=== PATIENT | female | born 1955 | race Caucasian/White ===

== ENCOUNTER 2020-01-10 14:43 | Inpatient (IN) | payer OTHER, SELFPAY ==
--- NOTE | ~2020-01-10 | US_ITS ---
EXAMINATION: US right upper quadrant DATE: 01/10/2020 18:34 INDICATION: Right upper quadrant pain TECHNIQUE: Multiple grayscale and Doppler ultrasound images of the abdomen were obtained. COMPARISON: CT from today FINDINGS: Bowel gas obscures visualization of the pancreas. The visualized portions of the pancreas a re unremarkable. The liver is normal with normal echogenicity and echotexture. No surface nodularity. Normal hepatopetal flow in the main portal vein. The gallbladder is normal in size with no stones id entified. There is trace pericholecystic fluid. Gallbladder wall thickness is upper limits of normal. The normal common bile duct measures 5 mm. There was no sonographic Garcia sign. IMPRESSION: 1. Trace pericholecystic fluid without additional findings of acute cholecystitis. If there is high c linical suspicion for cholecystitis, nuclear hepatobiliary scan is recommended. Reviewed, dictated and finalized at location A. IMPRESSION: 1. Trace pericholecystic fluid without additional findings of acute cholecystit is. If there is high clinical suspicion for cholecystitis, nuclear hepatobiliar y scan is recommended.
--- NOTE | ~2020-01-10 | XR_ITS ---
EXAMINATION: XR chest port-a-cath/central DATE: 01/16/2020 12:50 INDICATION: Tunneled dialysis catheter placement TECHNIQUE: frontal and lateral views of the chest were obtained. COMPARISON: Chest radiograph dated 01/10/2020 FINDINGS: Interval placement of a large-bore dual-lumen tunneled right internal jugular central venous dialysis catheter with distal tip at the high right atrium. Pulmonary vascular congestion. No focal airspace opacities, lucas pulmonary edema, pleural effusion or pneumothorax. Cardiomediastinal silhouette is n ormal with prominent right paracardial fat pad. Retained epicardial pacemaker lead projects over the right heart. Median sternotomy wires and mediastinal surgical clips are seen, likely from prior coron sudhir artery bypass grafting. IMPRESSION: 1. Tip of a right internal jugular central venous catheter at the high right atrium. 2. Pulmonary vascular congestion. No other acute cardiopulmonary disease. Reviewed, dictated and finalized at location A. IMPRESSION: 1. Tip of a right internal jugular central venous catheter at the high right at [facility]. 2. Pulmonary vascular congestion. No other acute cardiopulmonary disease.
--- NOTE | ~2020-01-10 | US_ITS ---
EXAMINATION: US renal BI DATE: 01/12/2020 15:42 INDICATION: Acute on chronic kidney disease TECHNIQUE: Multiple grayscale and Doppler ultrasound images of the kidneys were obtained. COMPARISON: None. FINDINGS: The right kidney measures 8.1 x 4.4 x 4.8 cm. The left kidney measures 8.0 x 4.5 x 4.1 cm. The kidneys demonstrate increased parenchymal echogenicity. There is no hydronephrosis. The bladder i s normal. IMPRESSION: 1. Medical renal disease. Reviewed, dictated and finalized at location A. IMPRESSION: 1. Medical renal disease.
--- NOTE | ~2020-01-10 | NM_ITS ---
EXAMINATION: NM hepatobiliary w pharm DATE: 01/11/2020 14:14 INDICATION: Possible biliary obstruction COMPARISON: None. TECHNIQUE: 5.2 mCi Tc-99m mebrofenin (Choletec) was administered intravenously. Scintigraphic images of the abdomen were obtained for one hour. 1.1 mcg sincalide (Kinevac) was administered by slow intr avenous infusion, and imaging was continued for 30 minutes. Gallbladder ejection fraction was calcula kristan by the technologist. FINDINGS: There is normal clearance of radiotracer from the blood pool. There is homogeneous tracer uptake by t he liver. Activity progresses to the gallbladder and bowel. The gallbladder ejection fraction (GBEF) is 48% (normal 10-90%, but most patient with gallbladder dysfunction have GBEF < 35% which does over lap with the normal range). Incidentally noted is likely lymphatic uptake of extravasated activity al liz the left arm. IMPRESSION: 1. Normal hepatobiliary scan. Reviewed, dictated and finalized at location A.
--- NOTE | ~2020-01-10 | XR_ITS ---
EXAMINATION: XR chest 1V portable EXAM DATE: 01/10/2020 16:15 INDICATION: Weakness, low blood sugar. TECHNIQUE: Portable AP frontal chest x-ray was obtained. Comparison is made to prior examination from 06/06/2019. FINDINGS: Sternotomy wires are present without findings to suggest sternal dehiscence. The cardiomedi astinal silhouette is prominent but magnified on this AP technique. Cardiac silhouette is stable in s ize compared to prior exam. No confluent consolidation, pneumothorax or pleural effusion suspected. T here is aortic arteriosclerosis. The bones are osteopenic. There are bony degenerative changes. IMPRESSION: No acute cardiopulmonary findings. Reviewed, dictated and finalized at location B.
--- NOTE | ~2020-01-10 | XR_ITS ---
EXAMINATION: XR fl guide central line place DATE: 01/16/2020 12:33 INDICATION: Tunneled dialysis catheter insertion TECHNIQUE: 2 fluoroscopic spot images of the chest were obtained during procedure performed by Dr. Martha wellington. Radiologist was not present for the imaging or procedure. The amount of fluoroscopy time used during this procedure was 0.3 minutes. COMPARISON: None. FINDINGS: Large-bore right internal jugular central venous catheter with distal tip at the high right atrium. V isualized portions of the lungs are clear with no pneumothorax. Median sternotomy wires and mediastin al surgical clips are seen, likely from prior coronary artery bypass grafting. IMPRESSION: 1. Fluoroscopy utilized during right internal jugular central venous catheter placement with distal t ip in the high right atrium. Reviewed, dictated and finalized at location A. IMPRESSION: 1. Fluoroscopy utilized during right internal jugular central venous catheter p lacement with distal tip in the high right atrium.
--- NOTE | ~2020-01-10 | CT_ITS ---
EXAMINATION: CT brain wo con EXAM DATE: 01/10/2020 16:34 INDICATION: Fatigue, low blood sugar. Pain. TECHNIQUE: Spiral CT of the head was performed without contrast. Axial, coronal and sagittal images were reviewed. The dose-length product (DLP) for this examination was 605.33 mGy-cm. The exposure w as tailored according to patient size, and iterative reconstruction (ASIR) was used as additional dos e reduction technique. There is no prior study for comparison. FINDINGS: There is no acute intraparenchymal hemorrhage. No evidence of intraparenchymal brain mass lesion. No evidence of acute infarction. Please note that initial head CT has limited sensitivity f or small or acute infarctions. There is mild periventricular and subcortical hypodensity, nonspecific but probably related to small vessel ischemic disease. There is mild prominence of the sulci and v entricles related to cerebral atrophy. Punctate old left basal ganglia lacunar infarction. There is intracranial carotid arteriosclerosis. There are no extra-axial collections. There is no mass effec t or midline shift. The orbits are unremarkable. Soft tissue is unremarkable. Status post left mas toidectomy. IMPRESSION: 1. Punctate old lacunar infarction. 2. Chronic age related findings. Reviewed, dictated and finalized at location B.
--- NOTE | ~2020-01-10 | CT_ITS ---
EXAMINATION: CT abdomen pelvis wo con DATE: 01/10/2020 17:32 INDICATION: Abdominal pain, elevated liver function tests and kidney disease TECHNIQUE: Computed tomography (CT) of the abdomen and pelvis was performed without intravenous contr ast. The dose-length product (DLP) was 257.86 mGy-cm. Automated exposure control and iterative recons truction technique were employed. COMPARISON: 06/07/2019, 10/26/2013 FINDINGS: Minimal dependent atelectasis is present in the lung bases. The heart size is normal. The l iver, spleen, pancreas, and adrenal glands are normal. The gallbladder is mildly distended. The kidne ys are unremarkable. There is no hydronephrosis or hydroureter. There is calcified atherosclerosis of the aorta and many of the other arteries. No pathologically enlarged abdominal or pelvic lymph nodes are identified. There is no free intraperitoneal gas or evidence of bowel obstruction. The appendix is normal. There is a chronic mass of the left uterine body which is unchanged since 2013, most consi stent with an intramural fibroid. IMPRESSION: 1. Mild gallbladder distention. Given elevated liver enzymes, acute cholecystitis is a consideration. Correlate for right upper quadrant tenderness and consider right upper quadrant ultrasound or nuclea r hepatobiliary scan. Reviewed, dictated and finalized at location A. IMPRESSION: 1. Mild gallbladder distention. Given elevated liver enzymes, acute cholecystit is is a consideration. Correlate for right upper quadrant tenderness and consid er right upper quadrant ultrasound or nuclear hepatobiliary scan.
[2020-01-10 15:07] VITALS: BP 91/45; PULSE 70; RESP 16; TEMP 36.4; O2SAT 100
--- NOTE | 2020-01-10 15:45 | PC.NURSE ---
Called lab to add on CMP and CBCD.
[2020-01-10 15:53] LABS: Basophils Percent Auto 0.4 % (0.2-1.2); Eosinophils Absolute Auto 0.1 K/mm3 (0-0.3); Eosinophils Percent Auto 0.6 % (0-4.4); Hematocrit 32.7 % (37.0-47.0); Hemoglobin 10.9 g/dL (12.0-15.0); Immature Granulocyte Absolute 0.08 K/mm3 (0.00-0.031); Immature Granulocyte Percent A 0.9 % (0-0.5); Lymphocytes Absolute Auto 0.95 K/mm3 (0.9-3.2); Lymphocytes Percent Auto 10.5 % (18.3-44.2); Mean Corpuscular HGB Conc 33.3 g/dl (32-36); Mean Corpuscular Hemoglobin 30.1 pg (26-34); Mean Corpuscular Volume 90.3 fl (80-100); Mean Platelet Volume 10.3 fl (7.4-10.4); Monocytes Absolute Auto 1.1 K/mm3 (0.1-0.6); Monocytes Percent Auto 12.4 % (2.6-8.5); Neutrophils Absolute Auto 6.8 K/mm3 (1.3-6.7); Neutrophils Percent Auto 75.2 % (45.5-73.1); Platelet Count Result 172 k/mm3 (150-375); Red Blood Count 3.62 M/mm3 (4.2-5.4); Red Cell Distribution Width 14.3 % (11.5-14.5)
--- NOTE | 2020-01-10 16:15 | PC.NURSE ---
patients family called ems this morning with increased confusion. patient was treated by ems for a low blood sugar and patients then refused transport. later patient decided that patient should be seen to make sure she didnt have a stroke or something . patient is at her normal mental status
[2020-01-10] MEDS: SODIUM CHLORIDE 0.9% IV 500 ML 999 ML IV CONT (16:22)
[2020-01-10 16:41] VITALS: BP 127/56; PULSE 68
[2020-01-10 16:42] VITALS: BP 128/55; PULSE 72
[2020-01-10 16:44] VITALS: BP 101/55; PULSE 78
--- NOTE | 2020-01-10 16:46 | ED.GENADULT ---
HPI - General Adult General Chief complaint: Unspecified Stated complaint: multiple complaints Time Seen by Provider: 01/10/20 15:32 Source: patient, family and old records reviewed Limitations: dementia History of Present Illness HPI narrative: Patient is a 64-year-old female who presents with family for evaluation of concern for weakness this morning EMS was called found to have a glucose of 30 was given glucose had improvement and stayed home and then was brought to emergency department for family for concern for evaluation patient denies any recent illness or other complaints and on arrival is in the room resting patient has no complaints has history of dementia but is alert and oriented to person and place. Patient has been without recent illness. Patient with history of dementia chronic kidney disease saw her oncologist yesterday secondary to chronic anemia. On arrival resting comfortably in the room with no complaints Related Data Home Medications Medication Instructions Recorded Confirmed aspirin 81 mg tablet,delayed 81 mg PO DAILY 06/06/19 01/09/20 release carvedilol 25 mg tablet 25 mg PO Q12H 06/06/19 01/09/20 cholecalciferol (vitamin D3) 25 1,000 unit PO BID cap 06/06/19 01/09/20 mcg (1,000 unit) capsule ezetimibe 10 mg tablet 10 mg PO DAILY 06/06/19 01/09/20 isosorbide mononitrate 30 mg 30 mg PO DAILY 06/06/19 01/09/20 tablet,extended release 24 hr rosuvastatin 40 mg tablet 40 mg PO DAILY 06/06/19 01/09/20 rivaroxaban 2.5 mg tablet 2.5 mg PO BID 08/29/19 01/09/20 Allergies Allergy/AdvReac Type Severity Reaction Status Date / Time No Known Allergies Allergy Unverified 12/27/19 11:13 Review of Systems Review of Systems: Narrative: Patient with unremarkable review of symptoms somewhat limited due to history of dementia All systems reviewed & are unremarkable except as noted in HPI and below PMFSH Past Medical History Medical History Acute on chronic kidney failure Anemia CAD (coronary artery disease) CHF (congestive heart failure) COPD (chronic obstructive pulmonary disease) Dementia Depression Essential (primary) hypertension GERD without esophagitis Heart attack History of blood transfusion Hyperlipidemia Post-menopausal Type 2 diabetes mellitus without complication, without long-term current use of insulin Ulcer UTI (urinary tract infection) Surgical History Surgical History History of breast biopsy History of coronary artery stent placement History of tubal ligation Hx of CABG Social History Social History Social History: Patient wishes to be a Full [employer]. She designates her Kyle Mcgee as her medical decision maker. Her PCP is Dr. Mauricio Smoking packs per day: 0.5 Smoking cigarettes per day: 10.0 Years smoked: 16 Smoking pack-years: 8.00 Smoking status: Current every day smoker Tobacco type: cigarettes Second hand tobacco smoke exposure: Yes Additional smoking assessment comments: used to smoke 1/2 ppd, down to 3-5 cigarretes/day Alcohol intake: never Substance use: never Additional living arrangements comments: Lives with and daughter/son in law Gender identity (if verbalized by the patient): Female Spiritual care concerns: No Agree to blood products: Yes Exam Narrative: Exam Narrative: GENERAL: Well-appearing, well-nourished, and in no acute distress. HEAD: Normocephalic, atraumatic. EYES: PERRLA and EOMI. ENT: Nares clear, no rhinorrhea or epistaxis. Mucous membranes moist. Oropharynx without tonsillar hypertrophy exudate or other lesions. NECK: Supple. No adenopathy or masses. CHEST: Clear to auscultation. No respiratory distress. No wheezes rales or rhonchi HEART: Regular rate and rhythm. No murmur heard. Normal peripheral pulses. ABDOMEN: Sof
[2020-01-10 16:56] LABS: Albumin Level 2.8 g/dL (3.5-5.1); Alkaline Phosphatase 130 U/L (38-126); Bilirubin,Total 0.3 mg/dL (0.2-1.3); Blood Urea Nitrogen 60 mg/dL (7-17); Calcium 7.3 mg/dL (8.4-10.2); Carbon Dioxide 15 mmol/L (22-30); Chloride 108 mmol/L (98-107); Estimated CRCL calculation 5 ml/min; Estimated Glomerular Filt Rate 5; Glucose 134 mg/dL (65-105); Potassium 4.6 mmol/L (3.4-5.0); Sodium 132 mmol/L (137-145)
[2020-01-10 17:09] LABS: Alanine Aminotransferase 1019 U/L (4-35); Aspartate Amino Transferase 963 U/L (14-36)
[2020-01-10 19:30] VITALS: BP 122/68; PULSE 78; RESP 18; O2SAT 99
[2020-01-10 19:33] LABS: Add Urine Microscopic? YES; Appearance Urine Cloudy (Clear); Bacteria Urine Trace /hpf; Bilirubin Urine Negative (Negative); Blood Urine 3+ (Negative); Color Urine Yellow (Yellow); Glucose Urine UA 3+ mg/dL (Negative); Ketones Urine Negative (Negative); Leukocyte Esterase Ur 3+ LEU/UL (Negative); Mucus Urine Rare /lpf; Nitrate Urine Negative (Negative); Protein Urine 2+ mg/dL (Negative); RBC Urine >75 /hpf (0-2); Renal Epithelial Cells Urine Rare /hpf (None Seen); Specific Grav Ur 1.008 (1.001-1.035); Squamous Epithelial Cell Urine Rare /hpf (Few); Urobilinogen Urine Negative mg/dL (<2.0); WBC Clumps Urine Present /HPF; WBC Urine 31-50 /hpf
[2020-01-10 20:35] LABS: Glucose Point of Care 212 (65-105)
--- NOTE | 2020-01-10 21:36 | ADMGEN ---
This patient, Jaki Luis, was admitted to [facility] Surg Room 322-02 per stretcher at 2135. Patient/family oriented to hospital policies and general routines including ID bracelet, bed and alarms, visiting hours, pain management, procedures, bathroom and other care routines, personal items, smoking policy, room service/diet, and visiting hours. Valuables list has been completed. Information on how to activate the Rapid Response Team has been discussed. Patient/Family are encouraged to report perceived risks to care and to ask questions if they do not understand what they are told or what they should do.
[2020-01-10 21:40] VITALS: BP 110/50; PULSE 75; RESP 18; TEMP 36.4; O2SAT 100; BMI 19.5
[2020-01-10] MEDS: LACTATED RINGERS 1,000 ML 75 ML IV CONT (22:00)
[2020-01-10] MEDS: FAMOTIDINE 20 MG/2 ML VIAL IV PUSH (22:23)
[2020-01-10 22:37] LABS: Glucose Point of Care 144 (65-105)
--- NOTE | 2020-01-10 22:44 | PC.NURSE ---
Unable to verify home medication list with patient. Attempted to reach Kyle Luis, spouse, by telephone but was unsuccessful.
--- NOTE | 2020-01-10 22:49 | PC.NURSE ---
Return call received from Kyle Luis, spouse. Home medication list reviewed and verified. List updated in chart.
[2020-01-11 06:00] VITALS: BP 102/45; PULSE 73; RESP 18; TEMP 36.9; O2SAT 98
--- NOTE | 2020-01-11 06:11 | PM.IMHP ---
H&P: HPI History of Present Illness Chief complaint: Low blood sugars, dementia Narrative: Date and time of patient contact: 01/11/2020 at 6:10 a.m. Jaki Luis is a 64 year old female with a past medical history of hypertension, type 2 diabetes mellitus and dementia who presented to the ER hypoglycemia earlier in the day. Source of information is past medical records and ER records. Patient is a poor historian due to her dementia. The patient had had a low glucose for which EMS was called. The patient's refused transport at that time. The patient's repeat glucose had improved after EMS intervention. The patient remained fatigued in the family decided to bring the patient in later in a day. The patient denies any complaints but has a history of dementia. In the ER the patient was found to have acute on chronic kidney injury and and elevated AST ALT and alk-phos. The patient has not been having any nausea or vomiting. She does not have any significant abdominal tenderness on exam. The patient is alert oriented to name, date of and the fact that she is in [facility]. She is not oriented to the month or year. Review of Systems Review of Systems: ROS unobtainable: Yes unobtainable due to medical condition (Limited due to the patient's dementia.) [facility] Past Medical History Medical History (Updated 01/11/20 @ 08:06 by Diana Pittman DO) Anemia Bilateral carotid artery stenosis CAD (coronary artery disease) 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 CHF (congestive heart failure) CKD (chronic kidney disease) stage 4, GFR 15-29 ml/min COPD (chronic obstructive pulmonary disease) PFTs October 2019 demonstrated mild obstructive ventilatory defect and severe small airway disease without significant bronchodilator effect Dementia Depression Essential (primary) hypertension GERD without esophagitis Heart attack History of blood transfusion Hyperlipidemia Post-menopausal Type 2 diabetes mellitus without complication, without long-term current use of insulin Ulcer UTI (urinary tract infection) Surgical History Surgical History (Updated 01/11/20 @ 08:06 by Diana Pittman DO) History of breast biopsy History of cardiac catheterization September 2013 demonstrating moderate left ventricular enlargement with severe left ventricular hypokinesis ejection fraction of 30% with severe multivessel coronary artery disease in the left main LAD and RCA with total occlusion of the left subclavian History of coronary artery stent placement History of tubal ligation Hx of CABG September 2013 Family History Family History (Updated 01/11/20 @ 06:15 by Diana Pittman DO) Father Diabetes mellitus Heart disease Mother Depression Lung cancer Social History Social History (Updated 01/11/20 @ 06:30 by Diana Pittman DO) Social History: Primary care physician: Dr. Annette Mauricio Code status: full Code. She designates her Kyle Mcgee as her medical decision maker. Smoking packs per day: 0.5 Smoking cigarettes per day: 10.0 Years smoked: 40 Smoking pack-years: 20.00 Smoking status: Current every day smoker Tobacco type: cigarettes Second hand tobacco smoke exposure: Yes Additional smoking assessment comments: used to smoke 1/2 ppd, down to 3-5 cigarretes/day Alcohol intake: never Substance use: never Additional living arrangements comments: Lives with and daughter/son in law. Occupation/Education: retired Additional occupation/education comments: She used to work as a director [employer]. Gender identity (if verbalized by the patient): Female Spiritual care concerns: No Agree to blood products: Yes Meds Home Medications and Allergies Home Medications Medication Instructions Recorded Confirmed Type aspirin 81 mg tablet,delayed 81 mg PO DAILY 06/06/19 01/10/20 History release carvedilol 25 mg tablet 25 mg PO Q12H 06/06/1912/17
[2020-01-11 06:58] LABS: Basophils Percent Auto 0.5 % (0.2-1.2); Eosinophils Absolute Auto 0.1 K/mm3 (0-0.3); Eosinophils Percent Auto 0.8 % (0-4.4); Hematocrit 28.7 % (37.0-47.0); Hemoglobin 9.6 g/dL (12.0-15.0); Immature Granulocyte Absolute 0.09 K/mm3 (0.00-0.031); Immature Granulocyte Percent A 1.2 % (0-0.5); Lymphocytes Absolute Auto 0.78 K/mm3 (0.9-3.2); Lymphocytes Percent Auto 10.3 % (18.3-44.2); Mean Corpuscular HGB Conc 33.4 g/dl (32-36); Mean Corpuscular Hemoglobin 30.1 pg (26-34); Mean Platelet Volume 10.2 fl (7.4-10.4); Monocytes Absolute Auto 0.8 K/mm3 (0.1-0.6); Monocytes Percent Auto 10.2 % (2.6-8.5); Neutrophils Absolute Auto 5.8 K/mm3 (1.3-6.7); Platelet Count Result 143 k/mm3 (150-375); Red Blood Count 3.19 M/mm3 (4.2-5.4); Red Cell Distribution Width 14.4 % (11.5-14.5); White Blood Count 7.5 K/mm3 (4.5-10.0)
[2020-01-11 07:04] LABS: Albumin Level 2.5 g/dL (3.5-5.1); Alkaline Phosphatase 137 U/L (38-126); Bilirubin,Total 0.3 mg/dL (0.2-1.3); Blood Urea Nitrogen 59 mg/dL (7-17); Calcium 7.5 mg/dL (8.4-10.2); Carbon Dioxide 13 mmol/L (22-30); Chloride 112 mmol/L (98-107); Estimated CRCL calculation 6 ml/min; Estimated Glomerular Filt Rate 5; Glucose 31 mg/dL (65-105); Lipase 566 U/L (23-300); Potassium 4.6 mmol/L (3.4-5.0); Sodium 135 mmol/L (137-145)
[2020-01-11] MEDS: DEXTROSE 50% 25 GM/50 ML SYRINGE IV PUSH ×2 (07:05→14:18)
[2020-01-11 07:07] LABS: Alanine Aminotransferase 1353 U/L (4-35)
[2020-01-11 07:32] LABS: Glucose Point of Care 134 (65-105)
[2020-01-11 08:01] LABS: Aspartate Amino Transferase 1484 U/L (14-36)
[2020-01-11] MEDS: DEXTROSE 5% 1,000 ML 1,000 ML 100 ML IVPB ×2 (09:45→21:59)
[2020-01-11] MEDS: FAMOTIDINE 20 MG/2 ML VIAL IV PUSH ×2 (09:46→21:56)
[2020-01-11] MEDS: PANTOPRAZOLE SODIUM IV 40 MG VIAL IV PUSH (09:46)
[2020-01-11 09:47] VITALS: PULSE 73
[2020-01-11 10:00] LABS: Glucose Point of Care 60 (65-105)
--- NOTE | 2020-01-11 12:43 | PM.CNGS ---
Assessment and Plan Assessment and plan (1) Elevated transaminase level: Code(s): R74.0 - Nonspecific elevation of levels of transaminase and lactic acid dehydrogenase [LDH] Status: Acute Assessment and Plan: unclear etiology, no stones on imaging, likely intrinsic hepatic pathology, will get GI referral for further workup (2) Acute acalculous cholecystitis: Code(s): K81.0 - Acute cholecystitis Status: Acute Assessment and Plan: exam benign, cont serial exams for now, ok to have low fat diet (3) Diabetes mellitus with hypoglycemia: Code(s): E11.649 - Type 2 diabetes mellitus with hypoglycemia without coma Status: Acute Assessment and Plan: cont mgmt per primary team (4) Chronic systolic congestive heart failure, NYHA class 2: Code(s): I50.22 - Chronic systolic (congestive) heart failure Status: Acute Assessment and Plan: cont mgmt per primary team (5) Essential (primary) hypertension: Code(s): I10 - Essential (primary) hypertension Status: Acute Assessment and Plan: cont mgmt per primary team History of Present Illness Consult details Consult date: 01/11/20 Reason for consult: other (elevated LFTs, pericholecystic fluid) Requesting physician: Diana Pittman DO Narrative: Pt is a 64 y/o F c multiple med issues presenting to hospital c weakness, hypoglycemia. Pt incidentally found to have elevated transaminases, subsequent imaging suggestive of poss cholecystitis. Pt denies any abd pain or N/V. Of note, pt c dementia and is poor historian so history largely obtained via chart. Review of Systems Review of Systems: ROS unobtainable: Yes unobtainable due to medical condition [facility] Past Medical History Medical History Anemia Bilateral carotid artery stenosis CAD (coronary artery disease) 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 CHF (congestive heart failure) CKD (chronic kidney disease) stage 4, GFR 15-29 ml/min COPD (chronic obstructive pulmonary disease) PFTs October 2019 demonstrated mild obstructive ventilatory defect and severe small airway disease without significant bronchodilator effect Dementia Depression Essential (primary) hypertension GERD without esophagitis Heart attack History of blood transfusion Hyperlipidemia Post-menopausal Type 2 diabetes mellitus without complication, without long-term current use of insulin Ulcer UTI (urinary tract infection) Surgical History Surgical History History of breast biopsy History of cardiac catheterization September 2013 demonstrating moderate left ventricular enlargement with severe left ventricular hypokinesis ejection fraction of 30% with severe multivessel coronary artery disease in the left main LAD and RCA with total occlusion of the left subclavian History of coronary artery stent placement History of tubal ligation Hx of CABG September 2013 Family History Family History Father Diabetes mellitus Heart disease Mother Depression Lung cancer Social History Social History Social History: Primary care physician: Dr. Annette Mauricio Code status: full Code. She designates her Kyle Mcgee as her medical decision maker. Smoking packs per day: 0.5 Smoking cigarettes per day: 10.0 Years smoked: 40 Smoking pack-years: 20.00 Smoking status: Current every day smoker Tobacco type: cigarettes Second hand tobacco smoke exposure: Yes Additional smoking assessment comments: used to smoke 1/2 ppd, down to 3-5 cigarretes/day Alcohol intake: never Substance use: never Additional living arrangements comments: Lives with and daughter/son in law. Occupation/Education: retired Additional occupation/education comments: Sh
--- NOTE | 2020-01-11 13:04 | PM.IMPN ---
Progress Note: A&P Assessment and Plan (1) Acute acalculous cholecystitis: Code(s): K81.0 - Acute cholecystitis Status: Acute Assessment and Plan: Patient's CT scan showed mildly dilated gallbladder and labs showed elevated LFTs, total bilirubin, and her lipase was elevated as well. Right upper quadrant ultrasound was completed showing Trace pericholecystic fluid without additional findings of acute cholecystitis. If there is high clinical suspicion for cholecystitis, nuclear hepatobiliary scan is recommended. General surgery has been consulted from the emergency department I talked with Dr. Posada about the patient and her right upper quadrant ultrasound findings and he agreed with completed a HIDA scan today and having GI consult on the patient for further evaluation. Patient otherwise appears comfortable at this time. Continue monitoring her symptoms, CMP, lipase an GI and surgical input is greatly appreciated. (2) Acute kidney injury superimposed on chronic kidney disease: Code(s): N17.9 - Acute kidney failure, unspecified; N18.9 - Chronic kidney disease, unspecified Status: Acute Assessment and Plan: Patient's creatinine seems to be stable around 3 or 4. She does follow-up with Dr. Carr as an outpatient Creatinine is stable at 7.7. Nephrology has been consulted on the patient. Will avoid nephrotoxic medications. Continue gentle IV fluid hydration. (3) Abnormal urinalysis: Code(s): R82.90 - Unspecified abnormal findings in urine Status: Acute Assessment and Plan: Patient's urinalysis is abnormal looks like she has a UTI. Patient denies any urinary symptoms. Urine culture has been sent and pending. In the meantime will start IV ceftriaxone for UTI. Continue monitoring patient's symptoms. (4) Elevated levels of transaminase & lactic acid dehydrogenase: Code(s): R74.0 - Nonspecific elevation of levels of transaminase and lactic acid dehydrogenase [LDH] Status: Acute Assessment and Plan: Due to suspected acalculous cholecystitis. Patient LFTs have been elevated even more today Most likely secondary to possible acalculous cholecystitis vs intrinsic hepatic pathology. GI has been consulted and their input is greatly appreciated. Continue monitoring the patient and her CMP daily. (5) Diabetes mellitus with hypoglycemia: Code(s): E11.649 - Type 2 diabetes mellitus with hypoglycemia without coma Status: Acute Assessment and Plan: Patient has had multiple episodes of hypoglycemia this morning her glucose was in the 30s. She was started on dextrose IV and will continue monitoring her glucose while she is NPO. Continue monitoring her glucose levels, Q6hr while NPO and ACHS when she begins eating. Hypoglycemic protocol in place. (6) Essential (primary) hypertension: Code(s): I10 - Essential (primary) hypertension Status: Acute Assessment and Plan: Blood pressure has been low normal this morning, 102/45. Will hold her blood pressure meds at this time and restart them when she is more stable and eating and drinking like normal. (7) Dementia, unspecified, without behavioral disturbance: Qualifiers: Dementia type: unspecified type Qualified Code(s): F03.90 - Unspecified dementia without behavioral disturbance Code(s): F03.90 - Unspecified dementia without behavioral disturbance Status: Acute Assessment and Plan: She is on any medications for this but she is A&O x3. Will continue monitoring. (8) Anemia: Qualifiers: Anemia type: due to chronic kidney
--- NOTE | 2020-01-11 13:28 | WPDGICN ---
Assessment and Plan Assessment and plan (1) Elevated transaminase level: Code(s): R74.0 - Nonspecific elevation of levels of transaminase and lactic acid dehydrogenase [LDH] Status: Acute Assessment and Plan: Patient has marked elevation of LFTs. Most suspicious for ischemic ?shock liver. Suspicious the patient may have had low blood pressure prompting elevation of LFTs. She is currently pain-free. And this degree of elevation is suspicious. Plan is to check hepatitis serologies for other potential causes of elevated LFTs. This appears to be unlikely related to gallbladder disease. Gallbladder ultrasound reviewed and CT scan are nonspecific. HIDA scan will be obtained regardless. (2) Diabetes mellitus with hypoglycemia: Code(s): E11.649 - Type 2 diabetes mellitus with hypoglycemia without coma Status: Acute (3) Dementia, unspecified, without behavioral disturbance: Qualifiers: Dementia type: unspecified type Qualified Code(s): F03.90 - Unspecified dementia without behavioral disturbance Code(s): F03.90 - Unspecified dementia without behavioral disturbance Status: Acute Assessment and Plan: Patient has dementia which makes it hard to give a history. Physical exam remains pain-free at this time. (4) CKD (chronic kidney disease) stage 4, GFR 15-29 ml/min: Code(s): N18.4 - Chronic kidney disease, stage 4 (severe) Status: Acute Assessment and Plan: Patient has significant underlying chronic kidney disease. It is uncertain but she may have a acute worsening of her chronic kidney disease and nephrology follow-up strongly encourage. Currently her BUN is 59 and creatinine 7.7 P (5) Anemia: Qualifiers: Anemia type: due to chronic kidney disease Qualified Code(s): N18.4 - Chronic kidney disease, stage 4 (severe); D63.1 - Anemia in chronic kidney disease Code(s): D64.9 - Anemia, unspecified Status: Acute Assessment and Plan: Patient has anemia of chronic disease. Evaluation of the GI tract was performed on recent admission. GI Consult Note Consult date/time: 01/11/20 13:28 HPI: Jaki Luis is a 64 year old female with a history of dementia history of chronic kidney disease and anemia of chronic disease. Presented to the emergency room because of symptoms of hypoglycemia. Patient was noted to have elevated LFTs and for this reason I have been consulted. Patient has a history of dementia is unable to give any additional history. Laboratory testing emergency room raise the question of gallbladder inflammation. However patient has no abdominal pain. 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 CHF (congestive heart failure) CKD (chronic kidney disease) stage 4, GFR 15-29 ml/min COPD (chronic obstructive pulmonary disease) PFTs October 2019 demonstrated mild obstructive ventilatory defect and severe small airway disease without significant bronchodilator effect Dementia Depression Essential (primary) hypertension GERD without esophagitis Heart attack History of blood transfusion Hyperlipidemia Post-menopausal Type 2 diabetes mellitus without complication, without long-term current use of insulin Ulcer UTI (urinary tract infection) Surgical History Surgical History History of breast biopsy History of cardiac catheterization September 2013 demonstrating moderate left ventricular enlargement with severe left ventricular hypokinesis ejection fraction of 30% with severe multivessel coronary artery disease in the left main LAD and RCA with total occlusion of the left subclavian History of coronary artery stent placement History of
[2020-01-11 14:00] VITALS: BP 126/45; PULSE 68; RESP 16; TEMP 36.5; O2SAT 100
[2020-01-11 14:27] LABS: Glucose Point of Care 31 (65-105)
[2020-01-11 15:16] LABS: Albumin Level 2.7 g/dL (3.5-5.1); Blood Urea Nitrogen 60 mg/dL (7-17); Calcium 7.4 mg/dL (8.4-10.2); Carbon Dioxide 15 mmol/L (22-30); Chloride 108 mmol/L (98-107); Estimated CRCL calculation 6 ml/min; Estimated Glomerular Filt Rate 5; Glucose 120 mg/dL (65-105); Phosphorus 4.6 mg/dL (2.5-4.5); Potassium 4.2 mmol/L (3.4-5.0); Sodium 131 mmol/L (137-145)
[2020-01-11 15:23] LABS: Glucose Point of Care 112 (65-105)
[2020-01-11 15:36] LABS: Albumin Level 2.8 g/dL (3.5-5.1); Alkaline Phosphatase 144 U/L (38-126); Bilirubin,Total 0.4 mg/dL (0.2-1.3)
--- NOTE | 2020-01-11 15:39 | PM.CNNEP ---
Assessment and Plan Assessment and plan (1) Acute kidney injury: Code(s): N17.9 - Acute kidney failure, unspecified Status: Acute (2) CKD (chronic kidney disease) stage 4, GFR 15-29 ml/min: Code(s): N18.4 - Chronic kidney disease, stage 4 (severe) Status: Acute (3) Elevated LFTs: Code(s): R79.89 - Other specified abnormal findings of blood chemistry Status: Acute (4) Anemia: Qualifiers: Anemia type: due to chronic kidney disease Qualified Code(s): N18.4 - Chronic kidney disease, stage 4 (severe); D63.1 - Anemia in chronic kidney disease Code(s): D64.9 - Anemia, unspecified Status: Acute (5) Essential (primary) hypertension: Code(s): I10 - Essential (primary) hypertension Status: Acute (6) Diabetes: Code(s): E11.9 - Type 2 diabetes mellitus without complications Status: Acute Assessment and Plan: . Additional Plan Jaki has suffered an acute insult on top of her baseline kidney function as evidenced by her admission labs. Her baseline creatinine normally runs around 3.8-3.9 mg/dL and this was the case a couple of months ago when she saw Dr. Carr in clinic. Discussions were done at that time with regard to the likelihood of renal replacement therapy / dialysis in the future and she was referred to dialysis education to ascertain if this is a intervention she was willing to pursue. According to her , they were willing to consider peritoneal dialysis as a treatment option if her kidney function deteriorated to the point of complete failure. Her creatinine on admission is quite a significant decline in her kidney function and more so than I would have expected for simple disease progression. As already mentioned, gastroenterology saw the patient with regard to her elevated liver function tests and there is some concern that she may have suffered shock liver presumably due to relative hypotension. If this is indeed the case, then I would suspect that her kidney function also suffered from her presumed hypotension resulting in the rise in her BUN and creatinine much like her rise in her blood high liver enzymes. Nevertheless, I still cannot deny the possibility that there may be some element of disease progression but the fact that her creatinine went from a 3.8mg/dl to 7.7mg/dl in a span a 2 - 3 months seems to be quite rapid for disease progression alone. Hence, for further evaluation, I will check a renal ultrasound and check urine electrolytes as well as urine eosinophils. I could check a extensive serological workup but she has already had this done on initial evaluation of her kidney disease. It is felt that her baseline kidney disease is due to combination of diabetes, hypertension, and age-related change. I will continue follow the patient with you while she remains hospitalized to make further recommendations her hospital course. Thank you for allowing me to participate in the care of this patient. History of Present Illness Reason for Consult Consult date: 01/11/20 Reason for consult: acute renal failure (on chronic kidney disease) Chief Complaint Chief complaint: Low blood sugars, dementia History of Present Illness Narrative: Almost all the information I have obtained is from review of the electronic medical records and discussion with the nurses involved in the patient's care as getting a complete and concise history from the patient is quite limited due to her dementia. The patient is a 64 year old female with a past medical history as outlined below who presented to the [facility] ER due to hypoglycemia. The patient had had a low glucose for which EMS was called. Repeat glucose teseting had improved after EMS intervened and hence was not taken to the ER at that time. Apparently, however, the patient remained quite fatigued and her family decided to bring the patient to the ER later in the day.
[2020-01-11 17:04] LABS: Alanine Aminotransferase 1333 U/L (4-35); Aspartate Amino Transferase 1271 U/L (14-36)
[2020-01-11 17:05] LABS: Hepatitis B Surface Antigen Negative (Negative)
[2020-01-11 17:10] LABS: HAV RESULT Negative (Negative); Hepatitis B Core IgM Result Negative (Negative)
[2020-01-11 17:22] LABS: Hepatitis C Virus Antibody Negative (Negative)
[2020-01-11] MEDS: CHOLECALCIFEROL 1,000 UNIT TABLET 1000 UNITS PO (18:36)
[2020-01-11 18:43] LABS: Glucose Point of Care 99 (65-105)
[2020-01-11 21:17] VITALS: BP 117/54; PULSE 67; RESP 16; TEMP 36.7; O2SAT 100
[2020-01-11 21:56] VITALS: PULSE 70
[2020-01-11] MEDS: carvediloL 25 MG TABLET PO (21:56)
[2020-01-11 22:04] LABS: Glucose Point of Care 144 (65-105)
--- NOTE | 2020-01-11 23:43 | PC.NURSE ---
PRN D5 IV fluids for hypoglycemia paused at 2230 in order to see if the patient could sustain her blood sugar without them. Blood sugar at 2145 was 144. Will recheck blood sugar at 0000 and will keep close eye on patient.
[2020-01-11 23:50] LABS: Glucose Point of Care 119 (65-105)
[2020-01-12 01:08] LABS: Glucose Point of Care 77 (65-105)
[2020-01-12] MEDS: DEXTROSE 5% 1,000 ML 1,000 ML 100 ML IV CONT (02:20)
[2020-01-12 06:00] VITALS: BP 102/52; PULSE 68; RESP 18; TEMP 36.8; O2SAT 100
[2020-01-12 06:29] LABS: Basophils Percent Auto 0.2 % (0.2-1.2); Eosinophils Absolute Auto 0.1 K/mm3 (0-0.3); Eosinophils Percent Auto 1.4 % (0-4.4); Hematocrit 26.7 % (37.0-47.0); Hemoglobin 9.1 g/dL (12.0-15.0); Immature Granulocyte Absolute 0.07 K/mm3 (0.00-0.031); Immature Granulocyte Percent A 0.7 % (0-0.5); Lymphocytes Absolute Auto 1.08 K/mm3 (0.9-3.2); Lymphocytes Percent Auto 10.9 % (18.3-44.2); Mean Corpuscular HGB Conc 34.1 g/dl (32-36); Mean Corpuscular Hemoglobin 30.2 pg (26-34); Mean Corpuscular Volume 88.7 fl (80-100); Mean Platelet Volume 9.7 fl (7.4-10.4); Monocytes Absolute Auto 0.9 K/mm3 (0.1-0.6); Monocytes Percent Auto 9.4 % (2.6-8.5); Neutrophils Absolute Auto 7.6 K/mm3 (1.3-6.7); Neutrophils Percent Auto 77.4 % (45.5-73.1); Platelet Count Result 137 k/mm3 (150-375); Red Blood Count 3.01 M/mm3 (4.2-5.4); Red Cell Distribution Width 14.1 % (11.5-14.5); White Blood Count 9.9 K/mm3 (4.5-10.0)
[2020-01-12 06:57] LABS: Albumin Level 2.5 g/dL (3.5-5.1); Alkaline Phosphatase 129 U/L (38-126); Aspartate Amino Transferase 618 U/L (14-36); Bilirubin,Total 0.2 mg/dL (0.2-1.3); Blood Urea Nitrogen 60 mg/dL (7-17); Calcium 7.4 mg/dL (8.4-10.2); Carbon Dioxide 13 mmol/L (22-30); Chloride 104 mmol/L (98-107); Estimated CRCL calculation 5 ml/min; Estimated Glomerular Filt Rate 5; Glucose 93 mg/dL (65-105); Lipase 442 U/L (23-300); Magnesium 1.8 mg/dL (1.6-2.3); Phosphorus 4.7 mg/dL (2.5-4.5); Potassium 4.4 mmol/L (3.4-5.0); Sodium 129 mmol/L (137-145)
[2020-01-12 06:58] LABS: Glucose Point of Care 88 (65-105)
[2020-01-12 06:59] LABS: Alanine Aminotransferase 898 U/L (4-35)
--- NOTE | 2020-01-12 08:59 | WPDGIPROGNO ---
Progress Note: A&P Additional Plan Patient alert and comfortable this morning. Not well oriented. Denies any complaints of abdominal pain. Physical exam reveals her to be alert. She is anicteric. Lungs are clear. Heart without murmur. Abdomen bowel sounds are present soft nontender with no organomegaly. Labs reveal hemoglobin 9.1, hematocrit 26, MCV 80 a period BUN 60, creatinine 8.5. Total bilirubin is 0, AST 618 ALT 898, alk-phos 129. Impression 1. Elevated LFTs. This is most consistent with ?shock liver? period likely related to at interval history of hypotension. This is expected to resolve on its own. Continue to monitor LFTs conservatively. 2. Acute renal insufficiency. Currently monitored by Nephrology service. Likely related to episode of hypertension as well. 3. Anemia. This is chronic. Likely related to kidney disease. Recent GI workup was essentially unremarkable. 4. Dementia. Subjective Date/time seen: 01/12/20 08:59 Objective Data Vital Signs Vital Signs: Vital Signs - 24 hr 01/11/20 09:47 01/11/20 14:00 01/11/20 21:17 Temperature 36.5 C 36.7 C Pulse Rate 73 68 67 Respiratory Rate 16 16 Blood Pressure 126/45 L 117/54 L Pulse Oximetry 100 100 01/11/20 21:56 01/12/20 06:00 Temperature 36.8 C Pulse Rate 70 68 Respiratory Rate 18 Blood Pressure 102/52 L Pulse Oximetry 100 Intake/Output Intake/Output: Intake & Output 01/09/20 01/10/20 01/11/20 01/12/20 23:59 23:59 23:59 23:59 Intake Total 500 1963 360 Output Total 450 Balance 500 1513 360 Meds/Results Medications: Active Medications Generic Name Dose Route Start Last Admin Trade Name Freq PRN Reason Stop Dose Admin Amlodipine Besylate 10 mg 01/11/20 09:00 01/11/20 09:47 Norvasc PO Not Given DAILY ANGELIKA Aspirin 81 mg 01/11/20 09:00 01/11/20 09:47 Aspirin Ec PO Not Given DAILY ANGELIKA Carvedilol 25 mg 01/11/20 09:00 01/11/20 21:56 Coreg PO 25 mg Q12HR ANGELIKA Administration Dextrose 12.5 gm 01/10/20 15:28 01/11/20 14:18 Dextrose 50% Syringe IV PUSH 12.5 gm PRN PRN Administration Hypoglycemia Protocol Dextrose 12.5 gm 01/11/20 06:35 Dextrose 50% Syringe IV PUSH PRN PRN Hypoglycemia Protocol Famotidine 20 mg 01/10/20 21:00 01/11/20 21:56 Pepcid Iv IV PUSH 20 mg Q12HR ANGELIKA Administration Glucagon 1 mg 01/10/20 15:28 Glucagon For Inj IM PRN PRN Hypoglycemia Protocol Glucagon 1 mg 01/11/20 06:35 Glucagon For Inj IM PRN PRN Hypoglycemia Protocol Glucose 15 gm 01/10/20 15:28 Glutose 15 PO PRN PRN Hypoglycemia Protocol Glucose 15 gm 01/11/20 06:35 Glutose 15 PO PRN PRN Hypoglycemia Protocol Dextrose 1,000 mls @ 100 mls/hr 01/10/20 15:28 01/12/20 02:20 Dextrose 5% 1,000 Ml IVPB 0 mls/hr PRN PRN Infusion Hypoglycemia Protocol Dextrose 1,000 mls @ 100 mls/hr 01/11/20 06:35 Dextrose 5% 1,000 Ml IVPB PRN PRN Hypoglycemia Protocol Dextrose 1,000 mls @ 100 mls/hr 01/12/20 02:20 01/12/20 02:20 Dextrose 5% 1,000 Ml IV CONT 100 mls/hr .Q10H ANGELIKA Administration Isosorbide Mononitrate 30 mg 01/11/20 09:00 01/11/20 09:47 Imdur PO Not Given DAILY ANGELIKA Ondansetron HCl 4 mg 01/10/20 20:08 Zofran Inj IV PUSH Q4H PRN Nausea Pantoprazole Sodium 40 mg 01/11/20 09:00 01/11/20 09:46 Protonix Iv IV PUSH 40 mg QAM ANGELIKA Administration Vitamin D 1,000 unit 01/11/20 09:00 01/11/20 18:36 Vitamin D PO 1,000 unit BID ANGELIKA Administration Radiology Results: ITS Impressions Chest X-Ray 01/10/20 16:16 IMPRESSION: No acute cardiopulmonary findings. Head CT 01/10/20 16:38 IMPRESSION: 1. Punctate old lacunar infarction. 2. Chronic age related findings. Abdomen/Pelvis CT 01/10/20 17:38 IMPRESSION: 1. Mild gallbladder distention. Giv
[2020-01-12] MEDS: FAMOTIDINE 20 MG/2 ML VIAL IV PUSH ×2 (09:00→19:47)
[2020-01-12] MEDS: ASPIRIN 81 MG ENTERIC TABLET PO (09:11)
[2020-01-12] MEDS: CHOLECALCIFEROL 1,000 UNIT TABLET 1000 UNITS PO ×2 (09:13→17:54)
[2020-01-12] MEDS: PANTOPRAZOLE SODIUM IV 40 MG VIAL IV PUSH (09:13)
[2020-01-12] MEDS: ISOSORBIDE MONONITRATE 30 MG TAB.ER.24H PO (09:13)
--- NOTE | 2020-01-12 09:57 | PM.IMPN ---
Progress Note: A&P Assessment and Plan (1) Elevated LFTs: Code(s): R79.89 - Other specified abnormal findings of blood chemistry Status: Acute Assessment and Plan: Patient came into the hospital due to some fatigue and found her glucose to be low. LFTs were found to be elevated and further evaluation was completed. Patient's CT scan showed mildly dilated gallbladder and labs showed elevated LFTs, total bilirubin, and her lipase was elevated as well. Right upper quadrant ultrasound was completed showing Trace pericholecystic fluid without additional findings of acute cholecystitis. If there is high clinical suspicion for cholecystitis, nuclear hepatobiliary scan is recommended. General surgery has been consulted from the emergency department I talked with Dr. Albino jordan about the patient and he believes the etiology could be secondary to intrinsic hepatic pathology. GI was consulted who feels she has ?shock liver? from hypotension. At this time she is receiving IV fluids to keep her blood pressure stable, and her LFTs are improving. It is expected that her LFTs will resolved with IV fluids and stable blood pressure. Will continue monitoring for the next few days. And continue with conservative management. Continue monitoring her symptoms, CMP, lipase an GI and surgical input is greatly appreciated. (2) Acute kidney injury superimposed on chronic kidney disease: Code(s): N17.9 - Acute kidney failure, unspecified; N18.9 - Chronic kidney disease, unspecified Status: Acute Assessment and Plan: Patient's creatinine seems to be stable around 3 or 4. She does follow-up with Dr. Carr as an outpatient Creatinine increased again overnight to a creatinine of 8.5, BUN 60. Nephrology evaluated the patient yesterday and ordered a renal ultrasound and urine electrolytes as well as eosinophils. Dr. Verdin stated that the patient has already undergone dialysis Education but has never been placed on it officially. Will see if Nephrology would like to start dialysis while she is here due to her worsening renal function. Will avoid nephrotoxic medications. Continue gentle IV fluid hydration. (3) Abnormal urinalysis: Code(s): R82.90 - Unspecified abnormal findings in urine Status: Acute Assessment and Plan: Patient's urinalysis is abnormal looks like she has a UTI. Urine culture has been sent and came back negative for UTI. Antibiotics were discontinued. She denies any urinary symptoms at this time. Continue monitoring patient's symptoms. (4) Diabetes mellitus with hypoglycemia: Code(s): E11.649 - Type 2 diabetes mellitus with hypoglycemia without coma Status: Acute Assessment and Plan: Patient has had multiple episodes of hypoglycemia this morning her glucose was in the 30s. She was started on dextrose IV and will continue monitoring her glucose while she is NPO. She is now on a clear liquid diet and we are continuing to give her IV dextrose. She has not had any more hypoglycemic episodes. Will slowly advance her diet and continue monitoring her glucose. Continue monitoring her glucose levels ACHS.Hypoglycemic protocol in place. (5) Essential (primary) hypertension: Code(s): I10 - Essential (primary) hypertension Status: Acute Assessment and Plan: Blood pressure has been low normal this morning, 102/52. Will hold her blood pressure meds at this time and restart them when she is more stable and eating and drinking like normal. (6) Dementia, unspecified, without behavioral disturbance: Qualifiers: Dementia type: unspecified type Qualified Code(s): F03.90 - Unspecified dementia without behavioral distur
--- NOTE | 2020-01-12 10:26 | PM.PNGS ---
Progress Note: A&P Assessment and Plan (1) Acute acalculous cholecystitis: Code(s): K81.0 - Acute cholecystitis Status: Acute Assessment and Plan: exam benign, HIDA normal, labs normalizing, no acute surgical isses, will sign off, please call c ?s, issues (2) Elevated LFTs: Code(s): R79.89 - Other specified abnormal findings of blood chemistry Status: Acute Assessment and Plan: appreciate GI input and workup, cont current mgmt Subjective Subjective Date/Time Seen: 01/12/20 10:26 pt reports no issues, hiren diet s issue, denies any abd pain, N/V Review of Systems Constitutional: Constitutional: Denies fatigue, Denies lethargy and Denies weakness Cardiovascular: Cardiovascular: Denies chest pain Respiratory: Respiratory: Denies dyspnea Gastrointestinal: Gastrointestinal: Denies abdominal pain, Denies bloating, Denies constipation, Denies heartburn, Denies diarrhea, Denies nausea and Denies vomiting Exam Const: General: no acute distress Resp: Auscultation: clear to auscultation bilaterally Cardio: Rate: regular rate Rhythm: regular rhythm GI: Other: SNTND Objective Data Vital Signs Vital Signs: Vital Signs - 24 hr 01/11/20 14:00 01/11/20 21:17 01/11/20 21:56 Temperature 36.5 C 36.7 C Pulse Rate 68 67 70 Respiratory Rate 16 16 Blood Pressure 126/45 L 117/54 L Pulse Oximetry 100 100 01/12/20 06:00 Temperature 36.8 C Pulse Rate 68 Respiratory Rate 18 Blood Pressure 102/52 L Pulse Oximetry 100 Intake/Output Intake/Output: Intake & Output 01/09/20 01/10/20 01/11/20 01/12/20 23:59 23:59 23:59 23:59 Intake Total 500 1963 980 Output Total 450 Balance 500 1513 980 Meds/Results Medications: Active Medications Generic Name Dose Route Start Last Admin Trade Name Freq PRN Reason Stop Dose Admin Amlodipine Besylate 10 mg 01/11/20 09:00 01/11/20 09:47 Norvasc PO Not Given DAILY ANGELIKA Aspirin 81 mg 01/11/20 09:00 01/12/20 09:11 Aspirin Ec PO 81 mg DAILY ANGELIKA Administration Carvedilol 25 mg 01/11/20 09:00 01/11/20 21:56 Coreg PO 25 mg Q12HR ANGELIKA Administration Dextrose 12.5 gm 01/10/20 15:28 01/11/20 14:18 Dextrose 50% Syringe IV PUSH 12.5 gm PRN PRN Administration Hypoglycemia Protocol Dextrose 12.5 gm 01/11/20 06:35 Dextrose 50% Syringe IV PUSH PRN PRN Hypoglycemia Protocol Famotidine 20 mg 01/10/20 21:00 01/11/20 21:56 Pepcid Iv IV PUSH 20 mg Q12HR ANGELIKA Administration Glucagon 1 mg 01/10/20 15:28 Glucagon For Inj IM PRN PRN Hypoglycemia Protocol Glucagon 1 mg 01/11/20 06:35 Glucagon For Inj IM PRN PRN Hypoglycemia Protocol Glucose 15 gm 01/10/20 15:28 Glutose 15 PO PRN PRN Hypoglycemia Protocol Glucose 15 gm 01/11/20 06:35 Glutose 15 PO PRN PRN Hypoglycemia Protocol Dextrose 1,000 mls @ 100 mls/hr 01/10/20 15:28 01/12/20 02:20 Dextrose 5% 1,000 Ml IVPB 0 mls/hr PRN PRN Infusion Hypoglycemia Protocol Dextrose 1,000 mls @ 100 mls/hr 01/11/20 06:35 Dextrose 5% 1,000 Ml IVPB PRN PRN Hypoglycemia Protocol Dextrose 1,000 mls @ 100 mls/hr 01/12/20 02:20 01/12/20 02:20 Dextrose 5% 1,000 Ml IV CONT 100 mls/hr .Q10H ANGELIKA Administration Isosorbide Mononitrate 30 mg 01/11/20 09:00 01/12/20 09:13 Imdur PO 30 mg DAILY ANGELIKA Administration Ondansetron HCl 4 mg 01/10/20 20:08 Zofran Inj IV PUSH Q4H PRN Nausea Pantoprazole Sodium 40 mg 01/11/20 09:00 01/12/20 09:13 Protonix Iv IV PUSH 40 mg QAM ANGELIKA Administration Vitamin D 1,000 unit 01/11/20 09:00 01/12/20 09:13 Vitamin D PO 1,000 unit BID ANGELIKA Administration Radiology Results: ITS Impressions Chest X-Ray 01/10/20 16:16 IMPRESSION: No acute cardiopulmonary findings. Head CT 01/10/20 16:38 IMPRESSION: 1
[2020-01-12] MEDS: ONDANSETRON INJ 4 MG/2 ML VIAL IV PUSH (13:43)
[2020-01-12 14:00] VITALS: BP 110/54; PULSE 69; RESP 18; TEMP 36.9; O2SAT 100
[2020-01-12 14:15] LABS: Creatinine Urine 25.5 mg/dL; Sodium Urine Random 33 meq/L; Total Protein Urine Random 75 mg/dL
[2020-01-12 16:25] LABS: Glucose Point of Care 226 (65-105)
--- NOTE | 2020-01-12 17:12 | P.PNNP_ITS ---
Progress Note: A&P Assessment and Plan (1) Acute kidney injury: Code(s): N17.9 - Acute kidney failure, unspecified Status: Acute Assessment and Plan: * suspicion falls on possible ATN... * if her elevated LFTs are a response to shock liver due to hypotension, then it is very possible that the hypotension resulted in renal hypoperfusion and subsequent insult * no acute need for renal replacement therapy/dialysis at this time * HOWEVER, I worry that given her advanced CKD at baseline, she may not have fully recover and this insult may have pushed her over to the necessity of renal replacement therapy * urine lytes not consistent with prerenal azotemia * renal ultrasound pending (2) CKD (chronic kidney disease) stage 4, GFR 15-29 ml/min: Code(s): N18.4 - Chronic kidney disease, stage 4 (severe) Status: Acute Assessment and Plan: * baseline creatinine ~ 3.0 - 4.0mg/dl * thought to be secondary to diabetes + hypertension + age based on outpatient evaluation * apparently, family interested in pursuing peritoneal dialysis when dialysis is needed * if she need dialysis during this hospitalization, she would to be have initiated on hemodialysis (with plan for subsequent peritoneal dialysis as an outpatient) (3) Elevated LFTs: Code(s): R79.89 - Other specified abnormal findings of blood chemistry Status: Acute Assessment and Plan: * presumed to be secondary to hypotension episode (shock liver) * Gastroenterology following (4) Anemia: Qualifiers: Anemia type: due to chronic kidney disease Qualified Code(s): N18.4 - Chronic kidney disease, stage 4 (severe); D63.1 - Anemia in chronic kidney disease Code(s): D64.9 - Anemia, unspecified Status: Acute Assessment and Plan: * probably on the basis of CKD and PREET * follow trend of H/H * check iron studies * consider empiric Epogen (5) Essential (primary) hypertension: Code(s): I10 - Essential (primary) hypertension Status: Acute Assessment and Plan: * well controlled -- perhaps too well controlled given #1 and #$3 * hold BP medications with parameters * follow hemodynamics (6) Diabetes: Code(s): E11.9 - Type 2 diabetes mellitus without complications Status: Acute Assessment and Plan: * issues with hypoglycemia * on D5 IVFs at this time Will continue to follow. Subjective Date/time seen: 06/27/20 17:12 Awake and alert but difficulty with orientation; no apparent distress voiced at this time; no events or issues overnight or this AM; making some urine but creatinine worse today. Exam Narrative: Exam Narrative: General: WD/WN female in NAD Heart: normal S1 and S2; no rub Lungs: clear to auscultation Abdomen: soft, nontender, nondistended, positive bowel sounds Extremities: no cyanosis or clubbing; trace edema Skin: warm and dry Objective Data Vital Signs Vital Signs: Vital Signs Temp Pulse Resp BP Pulse Ox 01/12/20 14:00 36.9 C 69 18 110/54 L 100 01/12/20 06:00 36.8 C 68 18 102/52 L 100 01/11/20 21:56 70 01/11/20 21:17 36.7 C 67 16 117/54 L 100 Intake/Output Intake/Output: Intake & Output 01/09/20 01/10/20 01/11/20 01/12/20 23:59 23:59 23:59 23:59 Intake Total 500 1963 1160 Output Total 450 Balance 500 1513 1160
--- NOTE | 2020-01-12 17:12 | PM.PNNEP ---
Progress Note: A&P Assessment and Plan (1) Acute kidney injury: Code(s): N17.9 - Acute kidney failure, unspecified Status: Acute Assessment and Plan: suspicion falls on possible ATN... if her elevated LFTs are a response to shock liver due to hypotension, then it is very possible that the hypotension resulted in renal hypoperfusion and subsequent insult no acute need for renal replacement therapy/dialysis at this time HOWEVER, I worry that given her advanced CKD at baseline, she may not have fully recover and this insult may have pushed her over to the necessity of renal replacement therapy urine lytes not consistent with prerenal azotemia renal ultrasound pending (2) CKD (chronic kidney disease) stage 4, GFR 15-29 ml/min: Code(s): N18.4 - Chronic kidney disease, stage 4 (severe) Status: Acute Assessment and Plan: baseline creatinine ~ 3.0 - 4.0mg/dl thought to be secondary to diabetes + hypertension + age based on outpatient evaluation apparently, family interested in pursuing peritoneal dialysis when dialysis is needed if she need dialysis during this hospitalization, she would to be have initiated on hemodialysis (with plan for subsequent peritoneal dialysis as an outpatient) (3) Elevated LFTs: Code(s): R79.89 - Other specified abnormal findings of blood chemistry Status: Acute Assessment and Plan: presumed to be secondary to hypotension episode (shock liver) Gastroenterology following (4) Anemia: Qualifiers: Anemia type: due to chronic kidney disease Qualified Code(s): N18.4 - Chronic kidney disease, stage 4 (severe); D63.1 - Anemia in chronic kidney disease Code(s): D64.9 - Anemia, unspecified Status: Acute Assessment and Plan: probably on the basis of CKD and PREET follow trend of H/H check iron studies consider empiric Epogen (5) Essential (primary) hypertension: Code(s): I10 - Essential (primary) hypertension Status: Acute Assessment and Plan: well controlled -- perhaps too well controlled given #1 and #$3 hold BP medications with parameters follow hemodynamics (6) Diabetes: Code(s): E11.9 - Type 2 diabetes mellitus without complications Status: Acute Assessment and Plan: issues with hypoglycemia on D5 IVFs at this time Will continue to follow. Subjective Date/time seen: 01/12/20 17:12 Awake and alert but difficulty with orientation; no apparent distress voiced at this time; no events or issues overnight or this AM; making some urine but creatinine worse today. Exam Narrative: Exam Narrative: General: WD/WN female in NAD Heart: normal S1 and S2; no rub Lungs: clear to auscultation Abdomen: soft, nontender, nondistended, positive bowel sounds Extremities: no cyanosis or clubbing; trace edema Skin: warm and dry Objective Data Vital Signs Vital Signs: Vital Signs Temp Pulse Resp BP Pulse Ox 01/12/20 14:00 36.9 C 69 18 110/54 L 100 01/12/20 06:00 36.8 C 68 18 102/52 L 100 01/11/20 21:56 70 01/11/20 21:17 36.7 C 67 16 117/54 L 100 Intake/Output Intake/Output: Intake & Output 01/09/20 01/10/20 01/11/20 01/12/20 23:59 23:59 23:59 23:59 Intake Total 500 1963 1160 Output Total 450 Balance 500 1513 1160 Meds/Results Medications: Active Medications Generic Name Dose Route Start Last Admin Trade Name Freq PRN Reason Stop Dose Admin Amlodipine Besylate 10 mg 01/11/20 09:00 01/11/20 09:47 Norvasc PO Not Given DAILY ANGELIKA Aspirin 81 mg 01/11/20 09:00 01/12/20 09:11 Aspirin Ec PO 81 mg DAILY ANGELIKA Administration Carvedilol 25 mg 01/11/20 09:00 01/11/20 21:56 Coreg PO 25 mg Q12HR ANGELIKA Administration Dextrose 12.5 gm 01/10/20 15:28 01/11/20 14:18 Dextrose 50% Syringe IV PUSH 12.5 gm PRN PRN Administration Hypoglycemia Protocol Dextrose 12.5 gm 01/10
[2020-01-12 17:20] LABS: Glucose Point of Care 247 (65-105)
[2020-01-12 21:53] VITALS: BP 107/61; PULSE 68; RESP 16; TEMP 36.5; O2SAT 100
[2020-01-13 00:40] LABS: Glucose Point of Care 67 (65-105)
[2020-01-13 01:37] LABS: Glucose Point of Care 111 (65-105)
[2020-01-13 05:59] LABS: Glucose Point of Care 83 (65-105)
[2020-01-13 06:00] VITALS: BP 93/51; PULSE 71; RESP 99; TEMP 36.5; O2SAT 99
[2020-01-13 06:24] LABS: Basophils Percent Auto 0.3 % (0.2-1.2); Eosinophils Absolute Auto 0.1 K/mm3 (0-0.3); Eosinophils Percent Auto 1.6 % (0-4.4); Hematocrit 26.3 % (37.0-47.0); Hemoglobin 8.9 g/dL (12.0-15.0); Immature Granulocyte Absolute 0.11 K/mm3 (0.00-0.031); Immature Granulocyte Percent A 1.4 % (0-0.5); Lymphocytes Absolute Auto 0.88 K/mm3 (0.9-3.2); Lymphocytes Percent Auto 11.5 % (18.3-44.2); Mean Corpuscular HGB Conc 33.8 g/dl (32-36); Mean Corpuscular Hemoglobin 29.4 pg (26-34); Mean Corpuscular Volume 86.8 fl (80-100); Mean Platelet Volume 9.8 fl (7.4-10.4); Monocytes Absolute Auto 0.7 K/mm3 (0.1-0.6); Monocytes Percent Auto 8.5 % (2.6-8.5); Neutrophils Absolute Auto 5.9 K/mm3 (1.3-6.7); Neutrophils Percent Auto 76.7 % (45.5-73.1); Platelet Count Result 155 k/mm3 (150-375); Red Blood Count 3.03 M/mm3 (4.2-5.4); Red Cell Distribution Width 14.3 % (11.5-14.5); White Blood Count 7.7 K/mm3 (4.5-10.0)
[2020-01-13 06:27] VITALS: BP 102/58
[2020-01-13 06:40] LABS: Albumin Level 2.5 g/dL (3.5-5.1); Blood Urea Nitrogen 60 mg/dL (7-17); Calcium 7.7 mg/dL (8.4-10.2); Carbon Dioxide 14 mmol/L (22-30); Chloride 102 mmol/L (98-107); Estimated CRCL calculation 5 ml/min; Estimated Glomerular Filt Rate 4; Glucose 83 mg/dL (65-105); Magnesium 1.9 mg/dL (1.6-2.3); Phosphorus 5.7 mg/dL (2.5-4.5); Potassium 4.5 mmol/L (3.4-5.0); Sodium 126 mmol/L (137-145)
[2020-01-13] MEDS: CHOLECALCIFEROL 1,000 UNIT TABLET 1000 UNITS PO ×2 (07:44→17:36)
[2020-01-13] MEDS: ASPIRIN 81 MG ENTERIC TABLET PO (07:44)
[2020-01-13] MEDS: PANTOPRAZOLE SODIUM IV 40 MG VIAL IV PUSH (07:44)
[2020-01-13] MEDS: FAMOTIDINE 20 MG/2 ML VIAL IV PUSH ×2 (07:45→21:49)
--- NOTE | 2020-01-13 07:46 | WPDGIPROGNO ---
Progress Note: A&P Additional Plan Patient alert and comfortable this morning. Not oriented. No abdominal pain or complaints offered. Physical exam reveals lungs to be clear. Heart without murmur. Abdomen bowel sounds are present soft nontender. No organomegaly appreciated. Labs reveal not available from this morning. Transaminases decline significantly yesterday. Impression 1. Elevated LFTs. Appear to be most consistent with resolving ?shock liver? period continue monitor LFTs until resolution. No specific therapy warranted. 2. Dementia. 3. Chronic kidney disease. BUN 60, creatinine 9.1. Renal service following. Four. Anemia of chronic disease. Subjective Date/time seen: 01/13/20 07:46 Objective Data Vital Signs Vital Signs: Vital Signs - 24 hr 01/12/20 14:00 01/12/20 21:53 01/13/20 06:00 Temperature 36.9 C 36.5 C 36.5 C Pulse Rate 69 68 71 Respiratory Rate 18 16 99 H Blood Pressure 110/54 L 107/61 93/51 L Pulse Oximetry 100 100 99 01/13/20 06:27 Temperature Pulse Rate Respiratory Rate Blood Pressure 102/58 L Pulse Oximetry Intake/Output Intake/Output: Intake & Output 01/10/20 01/11/20 01/12/20 01/13/20 23:59 23:59 23:59 23:59 Intake Total 500 1963 1890 480 Output Total 450 900 Balance 500 1513 990 480 Meds/Results Medications: Active Medications Generic Name Dose Route Start Last Admin Trade Name Freq PRN Reason Stop Dose Admin Amlodipine Besylate 10 mg 01/11/20 09:00 01/11/20 09:47 Norvasc PO Not Given DAILY ANGELIKA Aspirin 81 mg 01/11/20 09:00 01/12/20 09:11 Aspirin Ec PO 81 mg DAILY ANGELIKA Administration Carvedilol 25 mg 01/11/20 09:00 01/11/20 21:56 Coreg PO 25 mg Q12HR ANGELIKA Administration Dextrose 12.5 gm 01/10/20 15:28 01/11/20 14:18 Dextrose 50% Syringe IV PUSH 12.5 gm PRN PRN Administration Hypoglycemia Protocol Dextrose 12.5 gm 01/11/20 06:35 Dextrose 50% Syringe IV PUSH PRN PRN Hypoglycemia Protocol Famotidine 20 mg 01/10/20 21:00 01/12/20 19:47 Pepcid Iv IV PUSH 20 mg Q12HR ANGELIKA Administration Glucagon 1 mg 01/10/20 15:28 Glucagon For Inj IM PRN PRN Hypoglycemia Protocol Glucagon 1 mg 01/11/20 06:35 Glucagon For Inj IM PRN PRN Hypoglycemia Protocol Glucose 15 gm 01/10/20 15:28 Glutose 15 PO PRN PRN Hypoglycemia Protocol Glucose 15 gm 01/11/20 06:35 Glutose 15 PO PRN PRN Hypoglycemia Protocol Dextrose/Sodium Chloride 1,000 mls @ 100 mls/hr 01/13/20 07:30 Dextrose 5% Sodium Chloride 0.9% IV CONT .Q10H ANGELIKA Isosorbide Mononitrate 30 mg 01/11/20 09:00 01/12/20 09:13 Imdur PO 30 mg DAILY ANGELIKA Administration Ondansetron HCl 4 mg 01/10/20 20:08 01/12/20 13:43 Zofran Inj IV PUSH 4 mg Q4H PRN Administration Nausea Pantoprazole Sodium 40 mg 01/11/20 09:00 01/12/20 09:13 Protonix Iv IV PUSH 40 mg QAM ANGELIKA Administration Vitamin D 1,000 unit 01/11/20 09:00 01/12/20 17:54 Vitamin D PO 1,000 unit BID ANGELIKA Administration Radiology Results: ITS Impressions Chest X-Ray 01/10/20 16:16 IMPRESSION: No acute cardiopulmonary findings. Head CT 01/10/20 16:38 IMPRESSION: 1. Punctate old lacunar infarction. 2. Chronic age related findings. Abdomen/Pelvis CT 01/10/20 17:38 IMPRESSION: 1. Mild gallbladder distention. Given elevated liver enzymes, acute cholecystitis is a consideration. Correlate for right upper quadrant tenderness and consider right upper quadrant ultrasound or nuclear hepatobiliary scan. Upper Quadrant Ultrasound 01/10/20 18:48 IMPRESSION: 1. Trace pericholecystic fluid without additional findings of acute cholecystitis. If there is high clinical suspicion for cholecystitis, nuclear hepatobiliary scan is recommended. Hepatobiliary Scan Nuclear Medicine 01/11/20 14:25 IMPRESSION
[2020-01-13 08:13] LABS: Alanine Aminotransferase 705 U/L (4-35); Albumin Level 2.8 g/dL (3.5-5.1); Alkaline Phosphatase 136 U/L (38-126); Aspartate Amino Transferase 298 U/L (14-36); Bilirubin,Total 0.2 mg/dL (0.2-1.3)
[2020-01-13 08:18] LABS: Transferrin 205 mg/dL (206-381)
[2020-01-13 08:24] LABS: Iron 24 ug/dL (37-170)
[2020-01-13 08:34] LABS: Percent Iron Saturation 8 % (20-50)
[2020-01-13 09:21] LABS: Folic Acid > 20.0 ng/mL (2.76->20); Vitamin B12 > 1000.0 pg/mL (239-931)
[2020-01-13] MEDS: SODIUM CHLORIDE 0.9% IV 1,000 ML 30 ML IV CONT (09:45)
--- NOTE | 2020-01-13 09:54 | P.PNNP_ITS ---
Progress Note: A&P Assessment and Plan (1) Acute kidney injury: Code(s): N17.9 - Acute kidney failure, unspecified Status: Acute Assessment and Plan: * suspicion falls on possible ATN... * if her elevated LFTs are a response to shock liver due to hypotension, then it is very possible that this hypotension episode resulted in renal hypoperfusion and subsequent insult * no acute need for renal replacement therapy/dialysis at this time * HOWEVER, I worry that given her advanced CKD at baseline, she may not have fully recover and this insult may have pushed her over to the necessity of renal replacement therapy * urine lytes not consistent with prerenal azotemia * renal ultrasound c/w medical renal disease * follow repeat labs and UOP (2) CKD (chronic kidney disease) stage 4, GFR 15-29 ml/min: Code(s): N18.4 - Chronic kidney disease, stage 4 (severe) Status: Acute Assessment and Plan: * baseline creatinine ~ 3.0 - 4.0mg/dl * thought to be secondary to diabetes + hypertension + age based on outpatient evaluation * apparently, family interested in pursuing peritoneal dialysis when dialysis is needed * if she need dialysis during this hospitalization, she would to be have initiated on hemodialysis (with plan for subsequent peritoneal dialysis as an outpatient) - I will try to discuss with her (3) Elevated LFTs: Code(s): R79.89 - Other specified abnormal findings of blood chemistry Status: Acute Assessment and Plan: * presumed to be secondary to hypotension episode (shock liver) * Gastroenterology following (4) Anemia: Qualifiers: Anemia type: due to chronic kidney disease Qualified Code(s): N18.4 - Chronic kidney disease, stage 4 (severe); D63.1 - Anemia in chronic kidney disease Code(s): D64.9 - Anemia, unspecified Status: Acute Assessment and Plan: * probably on the basis of CKD and PREET * follow trend of H/H * evidence of iron deficiency by anemia labs - will start IV venofer * start Epogen tomorrow (5) Essential (primary) hypertension: Code(s): I10 - Essential (primary) hypertension Status: Acute Assessment and Plan: * well controlled -- perhaps too well controlled given #1 and #3 * hold BP medications with parameters * follow hemodynamics (6) Diabetes: Code(s): E11.9 - Type 2 diabetes mellitus without complications Status: Acute Assessment and Plan: * issues with hypoglycemia * on D5 IVFs at this time Will continue to follow. Subjective Date/time seen: 01/13/20 09:54 Remains pleasantly confused with no acute complaints or concerns mentioned; trend of renal function/creatinine noted; however, still making urine and eating/drinking reasonably well. Exam Narrative: Exam Narrative: General: WD/WN female in NAD Heart: normal S1 and S2; no rub Lungs: clear to auscultation Abdomen: soft, nontender, nondistended, positive bowel sounds Extremities: no cyanosis or clubbing; trace edema Skin: warm and intact Objective Data Vital Signs Vital Signs: Vital Signs Temp Pulse Resp BP Pulse Ox 01/13/20 06:27 102/58 L 01/13/20 06:00 36.5 C 71 99 H 93/51 L 99 01/12/20 21:53 36.5 C 68 16 107/61 100 01/12/20 14:00 36.9 C 69 18 110/54 L 100 Intake/Output Intake/Output: Intake & Output
--- NOTE | 2020-01-13 09:54 | PM.PNNEP ---
Progress Note: A&P Assessment and Plan (1) Acute kidney injury: Code(s): N17.9 - Acute kidney failure, unspecified Status: Acute Assessment and Plan: suspicion falls on possible ATN... if her elevated LFTs are a response to shock liver due to hypotension, then it is very possible that this hypotension episode resulted in renal hypoperfusion and subsequent insult no acute need for renal replacement therapy/dialysis at this time HOWEVER, I worry that given her advanced CKD at baseline, she may not have fully recover and this insult may have pushed her over to the necessity of renal replacement therapy urine lytes not consistent with prerenal azotemia renal ultrasound c/w medical renal disease follow repeat labs and UOP (2) CKD (chronic kidney disease) stage 4, GFR 15-29 ml/min: Code(s): N18.4 - Chronic kidney disease, stage 4 (severe) Status: Acute Assessment and Plan: baseline creatinine ~ 3.0 - 4.0mg/dl thought to be secondary to diabetes + hypertension + age based on outpatient evaluation apparently, family interested in pursuing peritoneal dialysis when dialysis is needed if she need dialysis during this hospitalization, she would to be have initiated on hemodialysis (with plan for subsequent peritoneal dialysis as an outpatient) - I will try to discuss with her (3) Elevated LFTs: Code(s): R79.89 - Other specified abnormal findings of blood chemistry Status: Acute Assessment and Plan: presumed to be secondary to hypotension episode (shock liver) Gastroenterology following (4) Anemia: Qualifiers: Anemia type: due to chronic kidney disease Qualified Code(s): N18.4 - Chronic kidney disease, stage 4 (severe); D63.1 - Anemia in chronic kidney disease Code(s): D64.9 - Anemia, unspecified Status: Acute Assessment and Plan: probably on the basis of CKD and PREET follow trend of H/H evidence of iron deficiency by anemia labs - will start IV venofer start Epogen tomorrow (5) Essential (primary) hypertension: Code(s): I10 - Essential (primary) hypertension Status: Acute Assessment and Plan: well controlled -- perhaps too well controlled given #1 and #3 hold BP medications with parameters follow hemodynamics (6) Diabetes: Code(s): E11.9 - Type 2 diabetes mellitus without complications Status: Acute Assessment and Plan: issues with hypoglycemia on D5 IVFs at this time Will continue to follow. Subjective Date/time seen: 01/13/20 09:54 Remains pleasantly confused with no acute complaints or concerns mentioned; trend of renal function/creatinine noted; however, still making urine and eating/drinking reasonably well. Exam Narrative: Exam Narrative: General: WD/WN female in NAD Heart: normal S1 and S2; no rub Lungs: clear to auscultation Abdomen: soft, nontender, nondistended, positive bowel sounds Extremities: no cyanosis or clubbing; trace edema Skin: warm and intact Objective Data Vital Signs Vital Signs: Vital Signs Temp Pulse Resp BP Pulse Ox 01/13/20 06:27 102/58 L 01/13/20 06:00 36.5 C 71 99 H 93/51 L 99 01/12/20 21:53 36.5 C 68 16 107/61 100 01/12/20 14:00 36.9 C 69 18 110/54 L 100 Intake/Output Intake/Output: Intake & Output 01/10/20 01/11/20 01/12/20 01/13/20 23:59 23:59 23:59 23:59 Intake Total 500 1963 1890 480 Output Total 450 900 Balance 500 1513 990 480 Meds/Results Medications: Active Medications Generic Name Dose Route Start Last Admin Trade Name Freq PRN Reason Stop Dose Admin Amlodipine Besylate 10 mg 01/11/20 09:00 01/11/20 09:47 Norvasc PO Not Given DAILY ANGELIKA Aspirin 81 mg 01/11/20 09:00 01/13/20 07:44 Aspirin Ec PO 81 mg DAILY ANGELIKA Administration Carvedilol 25 mg 01/11/20 09:00 01/11/20 21:56 Coreg PO 25 mg Q12HR ANGELIKA Administration Dex
--- NOTE | 2020-01-13 10:45 | PM.IMPN ---
Progress Note: A&P Assessment and Plan (1) Elevated LFTs: Code(s): R79.89 - Other specified abnormal findings of blood chemistry Status: Acute Assessment and Plan: Patient came into the hospital due to some fatigue and found her glucose to be low. LFTs were found to be elevated and further evaluation was completed. Patient's CT scan showed mildly dilated gallbladder and labs showed elevated LFTs, total bilirubin, and her lipase was elevated as well. Right upper quadrant ultrasound was completed showing Trace pericholecystic fluid without additional findings of acute cholecystitis. If there is high clinical suspicion for cholecystitis, nuclear hepatobiliary scan is recommended. General surgery has been consulted from the emergency department I talked with Dr. Albino jordan about the patient and he believes the etiology could be secondary to intrinsic hepatic pathology. GI was consulted who feels she has ?shock liver? from hypotension. At this time she is receiving light IV fluids to keep her blood pressure stable, and her LFTs are improving. It is expected that her LFTs will resolved with IV fluids and stable blood pressure. Will continue monitoring for the next few days. And continue with conservative management. Continue monitoring her symptoms, CMP, lipase an GI and surgical input is greatly appreciated. (2) Acute kidney injury superimposed on chronic kidney disease: Code(s): N17.9 - Acute kidney failure, unspecified; N18.9 - Chronic kidney disease, unspecified Status: Acute Assessment and Plan: Patient's creatinine seems to be stable around 3 or 4. She does follow-up with Dr. Carr as an outpatient Creatinine increased again overnight to a creatinine of 9.1, BUN 60. Nephrology evaluated the patient yesterday and since the creatinine continues to go up he will talk to the patient's about possibly starting hemodialysis here in the hospital. Renal ultrasound showed medical renal disease. Continue light IV hydration nephrology. Will avoid nephrotoxic medications. Continue gentle IV fluid hydration. (3) Abnormal urinalysis: Code(s): R82.90 - Unspecified abnormal findings in urine Status: Acute Assessment and Plan: Patient's urinalysis is abnormal looks like she has a UTI. Urine culture has been sent and came back negative for UTI. Antibiotics were discontinued. She denies any urinary symptoms at this time. Continue monitoring patient's symptoms. (4) Diabetes mellitus with hypoglycemia: Code(s): E11.649 - Type 2 diabetes mellitus with hypoglycemia without coma Status: Acute Assessment and Plan: Patient has had multiple episodes of hypoglycemia this morning her glucose was in the 30s. She was started on dextrose IV and will continue monitoring her glucose while she is NPO. She is now on a full liquid diet and her glucose is improving. Will advance her to a regular diet see how she tolerates it as well as her glucose levels. Continue monitoring her glucose levels ACHS.Hypoglycemic protocol in place. (5) Essential (primary) hypertension: Code(s): I10 - Essential (primary) hypertension Status: Acute Assessment and Plan: Blood pressure has been low normal this morning, 102/58. Will hold her blood pressure meds at this time and restart them when she is more stable and eating and drinking like normal. (6) Dementia, unspecified, without behavioral disturbance: Qualifiers: Dementia type: unspecified type Qualified Code(s): F03.90 - Unspecified dementia without behavioral disturbance Code(s): F03.90 - Unspecified dementia without behavioral disturbance Status: Acute As
[2020-01-13 11:08] LABS: Glucose Point of Care 54 (65-105)
[2020-01-13 12:08] LABS: Glucose Point of Care 117 (65-105)
[2020-01-13] MEDS: IRON SUCROSE COMPLEX 200 MG in SODIUM CHLORIDE 0.9% IV 50 ML 120 MG IVPB (13:48)
[2020-01-13 14:00] VITALS: BP 111/68; PULSE 63; RESP 18; TEMP 36.7; O2SAT 100
[2020-01-13 14:09] LABS: Glucose Point of Care 277 (65-105)
[2020-01-13] MEDS: FERROUS SULFATE 324 MG TABLET PO (17:35)
[2020-01-13 18:08] LABS: Glucose Point of Care 238 (65-105)
--- NOTE | 2020-01-13 18:48 | PC.NURSE ---
Pt has pulled out fourth IV in [address] Osullivan who stated we could leave IV out until tomorrow morning's iron infusion.
[2020-01-13 22:00] VITALS: BP 118/84; PULSE 75; RESP 16; TEMP 37.1; O2SAT 98
[2020-01-14 01:31] LABS: Glucose Point of Care 218 (65-105)
[2020-01-14 01:31] LABS: Glucose Point of Care 258 (65-105)
[2020-01-14 04:37] LABS: Glucose Point of Care 127 (65-105)
[2020-01-14 06:00] VITALS: BP 116/72; PULSE 78; RESP 16; TEMP 36.9; O2SAT 99
[2020-01-14 06:11] LABS: Hematocrit 27.5 % (37.0-47.0); Hemoglobin 9.2 g/dL (12.0-15.0); Mean Corpuscular HGB Conc 33.5 g/dl (32-36); Mean Corpuscular Hemoglobin 30.1 pg (26-34); Mean Corpuscular Volume 89.9 fl (80-100); Mean Platelet Volume 10.2 fl (7.4-10.4); Platelet Count Result 181 k/mm3 (150-375); Red Blood Count 3.06 M/mm3 (4.2-5.4); Red Cell Distribution Width 14.9 % (11.5-14.5); White Blood Count 7.1 K/mm3 (4.5-10.0)
[2020-01-14 06:28] LABS: Alanine Aminotransferase 554 U/L (4-35); Albumin Level 2.7 g/dL (3.5-5.1); Alkaline Phosphatase 131 U/L (38-126); Aspartate Amino Transferase 168 U/L (14-36); Bilirubin,Total 0.2 mg/dL (0.2-1.3); Blood Urea Nitrogen 61 mg/dL (7-17); Calcium 7.3 mg/dL (8.4-10.2); Carbon Dioxide 15 mmol/L (22-30); Chloride 108 mmol/L (98-107); Estimated CRCL calculation 5 ml/min; Estimated Glomerular Filt Rate 4; Glucose 118 mg/dL (65-105); Phosphorus 6.8 mg/dL (2.5-4.5); Sodium 134 mmol/L (137-145)
[2020-01-14 07:06] LABS: Hepatitis B Surface Antigen Negative (Negative)
[2020-01-14 07:12] LABS: HAV RESULT Negative (Negative); Hepatitis B Core IgM Result Negative (Negative)
[2020-01-14 07:24] LABS: Hepatitis B Surface Anti Res Negative; Hepatitis C Virus Antibody Negative (Negative)
[2020-01-14] MEDS: FERROUS SULFATE 324 MG TABLET PO ×2 (09:22→17:25)
[2020-01-14] MEDS: ASPIRIN 81 MG ENTERIC TABLET PO (09:22)
[2020-01-14] MEDS: CHOLECALCIFEROL 1,000 UNIT TABLET 1000 UNITS PO ×2 (09:22→17:25)
--- NOTE | 2020-01-14 09:29 | WPDGIPROGNO ---
Progress Note: A&P Additional Plan Patient clinically unchanged. She offers no complaints. Physical exam reveals her to be alert. Vital signs stable. Lungs are clear. Abdomen is soft nontender with no organomegaly. Labs reveal bilirubin 0.2. AST 168, ALT 554, alk-phos 131. Impression 1. Elevated LFTs most consistent with shock liver . This appears to be resolving slowly as expected. Plan is to monitor LFTs. i. To ensure complete resolution. No additional therapy warranted today. 2. Renal insufficiency. Followed by Nephrology service. 3. Diabetes mellitus. 4. Dementia Subjective Date/time seen: 01/14/20 09:29 Objective Data Vital Signs Vital Signs: Vital Signs - 24 hr 01/13/20 14:00 01/13/20 22:00 01/14/20 06:00 Temperature 36.7 C 37.1 C 36.9 C Pulse Rate 63 75 78 Respiratory Rate 18 16 16 Blood Pressure 111/68 118/84 116/72 Pulse Oximetry 100 98 99 Intake/Output Intake/Output: Intake & Output 01/11/20 01/12/20 01/13/20 01/14/20 23:59 23:59 23:59 23:59 Intake Total 1963 1890 1260 100 Output Total 450 900 800 Balance 6606 184 0927 -700 Meds/Results Medications: Active Medications Generic Name Dose Route Start Last Admin Trade Name Freq PRN Reason Stop Dose Admin Amlodipine Besylate 10 mg 01/11/20 09:00 01/11/20 09:47 Norvasc PO Not Given DAILY ANGELIKA Aspirin 81 mg 01/11/20 09:00 01/14/20 09:22 Aspirin Ec PO 81 mg DAILY ANGELIKA Administration Carvedilol 25 mg 01/11/20 09:00 01/11/20 21:56 Coreg PO 25 mg Q12HR ANGELIKA Administration Dextrose 12.5 gm 01/10/20 15:28 01/11/20 14:18 Dextrose 50% Syringe IV PUSH 12.5 gm PRN PRN Administration Hypoglycemia Protocol Dextrose 12.5 gm 01/11/20 06:35 Dextrose 50% Syringe IV PUSH PRN PRN Hypoglycemia Protocol Docusate Sodium 100 mg 01/13/20 10:11 Colace Capsule PO Q12H PRN Constipation Epoetin Giancarlo-epbx 10,000 units 01/14/20 09:00 Retacrit SUB-Q MOWEFR ANGELIKA Famotidine 20 mg 01/10/20 21:00 01/13/20 21:49 Pepcid Iv IV PUSH 20 mg Q12HR ANGELIKA Administration Ferrous Sulfate 324 mg 01/13/20 17:00 01/14/20 09:22 Ferrous Sulfate PO 324 mg BIDWM ANGELIKA Administration Glucagon 1 mg 01/10/20 15:28 Glucagon For Inj IM PRN PRN Hypoglycemia Protocol Glucagon 1 mg 01/11/20 06:35 Glucagon For Inj IM PRN PRN Hypoglycemia Protocol Glucose 15 gm 01/10/20 15:28 Glutose 15 PO PRN PRN Hypoglycemia Protocol Glucose 15 gm 01/11/20 06:35 Glutose 15 PO PRN PRN Hypoglycemia Protocol Sodium Chloride 1,000 mls @ 0 mls/hr 01/13/20 09:25 01/13/20 09:45 Normal Saline Iv IV CONT 30 mls/hr .[id number] ANGELIKA Administration KVO Iron Sucrose 200 mg/ Sodium 60 mls @ 120 mls/hr 01/13/20 10:05 01/13/20 14:20 Chloride IVPB 01/17/20 09:01 Infused QAM ANGELIKA Infusion Isosorbide Mononitrate 30 mg 01/11/20 09:00 01/12/20 09:13 Imdur PO 30 mg DAILY ANGELIKA Administration Ondansetron HCl 4 mg 01/10/20 20:08 01/12/20 13:43 Zofran Inj IV PUSH 4 mg Q4H PRN Administration Nausea Pantoprazole Sodium 40 mg 01/11/20 09:00 01/13/20 07:44 Protonix Iv IV PUSH 40 mg QAM ANGELIKA Administration Polyethylene Glycol 17 gm 01/13/20 10:11 Miralax PO QAM PRN Constipation Vitamin D 1,000 unit 01/11/20 09:00 01/14/20 09:22 Vitamin D PO 1,000 unit BID ANGELIKA Administration Radiology Results: ITS Impressions Chest X-Ray 01/10/20 16:16 IMPRESSION: No acute cardiopulmonary findings. Head CT 01/10/20 16:38 IMPRESSION: 1. Punctate old lacunar infarction. 2. Chronic age related findings. Abdomen/Pelvis CT 01/10/20 17:38 IMPRESSION: 1. Mild gallbladder distention. Given elevated liver enzymes, acute cholecystitis is a consideration. Correlate for right upper quadrant tenderness a
[2020-01-14] MEDS: PANTOPRAZOLE SODIUM IV 40 MG VIAL IV PUSH (09:34)
[2020-01-14] MEDS: IRON SUCROSE COMPLEX 200 MG in SODIUM CHLORIDE 0.9% IV 50 ML 120 MG IVPB (10:34)
[2020-01-14] MEDS: EPOETIN ALFA-EPBX 10,000 UNITS/ML VIAL 10000 UNITS SUB-Q (10:37)
--- NOTE | 2020-01-14 11:36 | PM.IMPN ---
Progress Note: A&P Assessment and Plan (1) Elevated LFTs: Code(s): R79.89 - Other specified abnormal findings of blood chemistry Status: Acute Assessment and Plan: LFTs were markedly elevated at presentation. CT abd/pelvis revealed mild gallbladder distention. RUQ US revealed trace pericholecystic fluid without evidence of acute cholecystitis. General surgery was consulted. HIDA scan was performed and revealed GBEF of 49%. General surgery felt that transaminitis was due to intrinsic hepatic pathology and GI was consulted. Hepatitis panel was negative. Her transaminitis was felt to be due to shock liver from hypotension. Continue to hold rosuvastatin. Avoid hepatotoxic agents. Her LFTs continue to improve with gentle IV fluids and BP stabilization. Continue to monitor. GI and general surgery input is greatly appreciated. (2) Acute kidney injury superimposed on chronic kidney disease: Code(s): N17.9 - Acute kidney failure, unspecified; N18.9 - Chronic kidney disease, unspecified Status: Acute Assessment and Plan: She has a hx of CKD stage 4 with baseline Cr of 3-4 prior to her admission. She is established with Dr. Carr. Cr continues to increase and is 10 today. ATN is suspected and may be due to hypotension prior to admission since this was suspected as the cause for her transaminitis. was performed and was consistent with medical renal disease. Nephrology is on board and input is greatly appreciated. It is possible that her renal function may not improve and thus, she may require dialysis. Her family is interested in peritoneal dialysis and nephrology plans to discuss this with her . She is receiving very gentle hydration per nephrology. Urine output is reasonable. Continue to avoid nephrotoxins and renally dose medications. Await further input per nephrology. (3) Abnormal urinalysis: Code(s): R82.90 - Unspecified abnormal findings in urine Status: Ruled-out Assessment and Plan: UA was suspicious for UTI but the final urine culture was negative. Antibiotics were discontinued. She has no urinary complaints. (4) Diabetes mellitus with hypoglycemia: Code(s): E11.649 - Type 2 diabetes mellitus with hypoglycemia without coma Status: Chronic Assessment and Plan: She had episodes of hypoglycemia with blood sugar as low as 31 the morning of 01/11/20. She is tolerating PO intake well at this time. She did have a low blood sugar reading of 54 yesterday (01/12). Fasting blood sugar today was 118. She was advanced to a regular diet yesterday and her blood sugars were elevated yesterday (200s). Will switch to a consistent carb diet. Continue ACHS glucose monitoring, hypoglycemia protocol, and low dose sliding scale insulin. (5) Essential (primary) hypertension: Code(s): I10 - Essential (primary) hypertension Status: Chronic Assessment and Plan: Blood pressures were reviewed and are stable today. Prior to admission blood pressure medications are on hold at this time due to suspected hypotension prior to admission. Continue to monitor and resume prior to admission blood pressure medications once appropriate. (6) Dementia, unspecified, without behavioral disturbance: Qualifiers: Dementia type: unspecified type Qualified Code(s): F03.90 - Unspecified dementia without behavioral disturbance Code(s): F03.90 - Unspecified dementia without behavioral disturbance Status: Chronic Assessment and Plan: Chronic. She is not on any prior to admission medications for dementia. Continue to monitor. (7) Anemia: Qualifiers: Anemia type: due to chronic kidney disease Qualified Code(s): N18.4 - Chronic kidney disease, stage 4 (severe); D63.1 - Anemia in chronic kidney disease Code(s): D64.9 - Anemia, unspecified Status: Chronic Assessment and Plan: Chronic and likely due to anemi
[2020-01-14] MEDS: FAMOTIDINE 20 MG/2 ML VIAL IV PUSH (12:14)
[2020-01-14 13:04] LABS: Glucose Point of Care 153 (65-105)
[2020-01-14 14:00] VITALS: BP 136/48; PULSE 76; RESP 16; TEMP 36.6; O2SAT 97
--- NOTE | 2020-01-14 16:40 | P.PNNP_ITS ---
Progress Note: A&P Assessment and Plan (1) Acute kidney injury: Code(s): N17.9 - Acute kidney failure, unspecified Status: Acute Assessment and Plan: * suspicion falls on possible ATN... * if her elevated LFTs are a response to shock liver due to hypotension, then it is very possible that this hypotension episode resulted in renal hypoperfusion and subsequent insult * no acute need for renal replacement therapy/dialysis at this time * HOWEVER, I worry that given her advanced CKD at baseline, she may not have fully recover and this insult may have pushed her over to the necessity of renal replacement therapy * urine lytes not consistent with prerenal azotemia * renal ultrasound c/w medical renal disease * follow repeat labs and UOP (2) CKD (chronic kidney disease) stage 4, GFR 15-29 ml/min: Code(s): N18.4 - Chronic kidney disease, stage 4 (severe) Status: Acute Assessment and Plan: * baseline creatinine ~ 3.0 - 4.0mg/dl * thought to be secondary to diabetes + hypertension + age based on outpatient evaluation * apparently, family interested in pursuing peritoneal dialysis when dialysis is needed * discussed with at bedside (3) Elevated LFTs: Code(s): R79.89 - Other specified abnormal findings of blood chemistry Status: Acute Assessment and Plan: * presumed to be secondary to hypotension episode (shock liver) * Gastroenterology following (4) Anemia: Qualifiers: Anemia type: due to chronic kidney disease Qualified Code(s): N18.4 - Chronic kidney disease, stage 4 (severe); D63.1 - Anemia in chronic kidney disease Code(s): D64.9 - Anemia, unspecified Status: Chronic Assessment and Plan: * probably on the basis of CKD and PREET * follow trend of H/H * evidence of iron deficiency by anemia labs - will start IV venofer * start Epogen tomorrow (5) Essential (primary) hypertension: Code(s): I10 - Essential (primary) hypertension Status: Chronic Assessment and Plan: * well controlled -- perhaps too well controlled given #1 and #3 * hold BP medications with parameters * follow hemodynamics (6) Diabetes: Code(s): E11.9 - Type 2 diabetes mellitus without complications Status: Acute Assessment and Plan: * issues with hypoglycemia * on D5 IVFs at this time Long and extensive discusson (> 20 minutes) with at bedside; patient still making urine but she is acidotic and K+ is rising as well; no signs/s ymptoms of uremia but BUN is rising as well; will see what labs are tomorrow AM and if worse, will proceed with initiation of hemodialysis (with the tenative plan to transition to peritoneal dialysis as an outpatient.) Will continue to follow. Subjective Date/time seen: 01/14/20 16:40 No apparent distress noted at this time; eating and drinking fairly well and still making some urne; unfortunately, AM labs continue to show ongoing decline in kidney function; at bedside and we discussed the situation. Exam Narrative: Exam Narrative: General: WD/WN female in NAD Heart: normal S1 and S2; no rub Lungs: clear to auscultation Abdomen: soft, nontender, nondistended, positive bowel sounds Extremities: no cyanosis or clubbing; trace edema Skin: no nodules Objective Data Vital Signs Vital Signs: Vital Signs Temp Pulse Resp BP Pulse Ox 01/14/20 14:00 36.6 C 76 16 136/48 L 97
--- NOTE | 2020-01-14 16:40 | PM.PNNEP ---
Progress Note: A&P Assessment and Plan (1) Acute kidney injury: Code(s): N17.9 - Acute kidney failure, unspecified Status: Acute Assessment and Plan: suspicion falls on possible ATN... if her elevated LFTs are a response to shock liver due to hypotension, then it is very possible that this hypotension episode resulted in renal hypoperfusion and subsequent insult no acute need for renal replacement therapy/dialysis at this time HOWEVER, I worry that given her advanced CKD at baseline, she may not have fully recover and this insult may have pushed her over to the necessity of renal replacement therapy urine lytes not consistent with prerenal azotemia renal ultrasound c/w medical renal disease follow repeat labs and UOP (2) CKD (chronic kidney disease) stage 4, GFR 15-29 ml/min: Code(s): N18.4 - Chronic kidney disease, stage 4 (severe) Status: Acute Assessment and Plan: baseline creatinine ~ 3.0 - 4.0mg/dl thought to be secondary to diabetes + hypertension + age based on outpatient evaluation apparently, family interested in pursuing peritoneal dialysis when dialysis is needed discussed with at bedside (3) Elevated LFTs: Code(s): R79.89 - Other specified abnormal findings of blood chemistry Status: Acute Assessment and Plan: presumed to be secondary to hypotension episode (shock liver) Gastroenterology following (4) Anemia: Qualifiers: Anemia type: due to chronic kidney disease Qualified Code(s): N18.4 - Chronic kidney disease, stage 4 (severe); D63.1 - Anemia in chronic kidney disease Code(s): D64.9 - Anemia, unspecified Status: Chronic Assessment and Plan: probably on the basis of CKD and PREET follow trend of H/H evidence of iron deficiency by anemia labs - will start IV venofer start Epogen tomorrow (5) Essential (primary) hypertension: Code(s): I10 - Essential (primary) hypertension Status: Chronic Assessment and Plan: well controlled -- perhaps too well controlled given #1 and #3 hold BP medications with parameters follow hemodynamics (6) Diabetes: Code(s): E11.9 - Type 2 diabetes mellitus without complications Status: Acute Assessment and Plan: issues with hypoglycemia on D5 IVFs at this time Long and extensive discusson (> 20 minutes) with at bedside; patient still making urine but she is acidotic and K+ is rising as well; no signs/symptoms of uremia but BUN is rising as well; will see what labs are tomorrow AM and if worse, will proceed with initiation of hemodialysis (with the tenative plan to transition to peritoneal dialysis as an outpatient.) Will continue to follow. Subjective Date/time seen: 01/14/20 16:40 No apparent distress noted at this time; eating and drinking fairly well and still making some urne; unfortunately, AM labs continue to show ongoing decline in kidney function; at bedside and we discussed the situation. Exam Narrative: Exam Narrative: General: WD/WN female in NAD Heart: normal S1 and S2; no rub Lungs: clear to auscultation Abdomen: soft, nontender, nondistended, positive bowel sounds Extremities: no cyanosis or clubbing; trace edema Skin: no nodules Objective Data Vital Signs Vital Signs: Vital Signs Temp Pulse Resp BP Pulse Ox 01/14/20 14:00 36.6 C 76 16 136/48 L 97 01/14/20 06:00 36.9 C 78 16 116/72 99 01/13/20 22:00 37.1 C 75 16 118/84 98 Intake/Output Intake/Output: Intake & Output 01/11/20 01/12/20 01/13/20 01/14/20 23:59 23:59 23:59 23:59 Intake Total 1963 1890 1260 400 Output Total 450 900 800 Balance 2553 301 4986 -400 Meds/Results Medications: Active Medications Generic Name Dose Route Start Last Admin Trade Name Freq PRN Reason Stop Dose Admin Amlodipine Besylate 10 mg 01/11/20 09:00 01/11/20 09:47 Norvasc PO Not Given
[2020-01-14 18:50] LABS: Glucose Point of Care 158 (65-105)
--- NOTE | 2020-01-14 20:43 | PC.NURSE ---
Pt lying in bed with sitter when I provided her meds at 1725. Jeannine was in the room, sitting for patient safety. Pt relaxed and calm. At 1745, I was giving meds in 321 when Jeannine called on my vocera asking for help. When I ran into the room, pt was combative. She was refusing to get into bed, swatting at Jeannine who was trying to lead her towards her bed. She walked out of her room, down the [address] towards [address] stating she was looking for a way out to get out of here. Security came up. doron Zacarias, and Jeannine stayed with security, while I called her to see if he could talk with her. I left a message with the daughter who stated she would have him call. I called Dr. Osullivan for possible medications to help her, but with her creatinine so high, he did not want to give her anything at this time. When finally called, he was willing to come spend the night with her to help her. Jeannine stayed in pt room where pt remained in bed and calm.
[2020-01-14 22:00] VITALS: BP 121/51; PULSE 86; RESP 20; TEMP 36.8; O2SAT 97
[2020-01-15 02:36] LABS: Glucose Point of Care 165 (65-105)
[2020-01-15 06:00] VITALS: BP 150/52; PULSE 83; RESP 20; TEMP 36.8; O2SAT 99
[2020-01-15 06:13] LABS: Basophils Absolute Auto 0.1 K/mm3 (0.0-0.1); Basophils Percent Auto 0.6 % (0.2-1.2); Eosinophils Absolute Auto 0.1 K/mm3 (0-0.3); Eosinophils Percent Auto 1.7 % (0-4.4); Hemoglobin 8.8 g/dL (12.0-15.0); Immature Granulocyte Absolute 0.21 K/mm3 (0.00-0.031); Immature Granulocyte Percent A 2.6 % (0-0.5); Lymphocytes Absolute Auto 0.88 K/mm3 (0.9-3.2); Lymphocytes Percent Auto 10.8 % (18.3-44.2); Mean Corpuscular HGB Conc 32.6 g/dl (32-36); Mean Corpuscular Hemoglobin 29.7 pg (26-34); Mean Corpuscular Volume 91.2 fl (80-100); Mean Platelet Volume 10.1 fl (7.4-10.4); Monocytes Absolute Auto 0.6 K/mm3 (0.1-0.6); Monocytes Percent Auto 7.9 % (2.6-8.5); Neutrophils Absolute Auto 6.2 K/mm3 (1.3-6.7); Neutrophils Percent Auto 76.4 % (45.5-73.1); Nucleated Red Blood Cells Perc 0.2 % (0.0-0.2); Platelet Count Result 178 k/mm3 (150-375); Red Blood Count 2.96 M/mm3 (4.2-5.4); Red Cell Distribution Width 15.8 % (11.5-14.5); White Blood Count 8.1 K/mm3 (4.5-10.0)
[2020-01-15 06:21] LABS: Alanine Aminotransferase 401 U/L (4-35); Albumin Level 2.6 g/dL (3.5-5.1); Alkaline Phosphatase 111 U/L (38-126); Aspartate Amino Transferase 100 U/L (14-36); Bilirubin,Total 0.2 mg/dL (0.2-1.3); Blood Urea Nitrogen 67 mg/dL (7-17); Calcium 7.2 mg/dL (8.4-10.2); Carbon Dioxide 13 mmol/L (22-30); Chloride 112 mmol/L (98-107); Estimated CRCL calculation 4 ml/min; Estimated Glomerular Filt Rate 4; Glucose 77 mg/dL (65-105); Potassium 4.9 mmol/L (3.4-5.0); Sodium 137 mmol/L (137-145)
[2020-01-15 08:00] VITALS: PULSE 83; RESP 20; O2SAT 99
[2020-01-15] MEDS: PANTOPRAZOLE SODIUM IV 40 MG VIAL IV PUSH (08:05)
[2020-01-15] MEDS: ASPIRIN 81 MG ENTERIC TABLET PO (08:08)
[2020-01-15] MEDS: FERROUS SULFATE 324 MG TABLET PO ×2 (08:08→17:34)
[2020-01-15] MEDS: CHOLECALCIFEROL 1,000 UNIT TABLET 1000 UNITS PO ×2 (08:09→17:34)
[2020-01-15] MEDS: IRON SUCROSE COMPLEX 200 MG in SODIUM CHLORIDE 0.9% IV 50 ML 120 MG IVPB (08:09)
[2020-01-15] MEDS: FAMOTIDINE 20 MG/2 ML VIAL IV PUSH (08:09)
[2020-01-15 08:47] LABS: Glucose Point of Care 71 (65-105)
--- NOTE | 2020-01-15 09:15 | WPDGIPROGNO ---
Progress Note: A&P Additional Plan Patient remains comfortable at rest. Physical exam reveals abdomen to be benign. Bowel sounds present soft nontender with no organomegaly. Labs reveal AST 100, ALT 4 a 1. Impression 1. Elevated LFTs continue to resolve consistent with resolving shock liver. 2. Anemia. Consistent with anemia of chronic disease recent GI evaluation was unremarkable. During previous admission. 3. Dementia. 4. Renal insufficiency. BUN 67, creatinine 10.7. Renal services following. Subjective Date/time seen: 01/15/20 09:15 Objective Data Vital Signs Vital Signs: Vital Signs - 24 hr 01/14/20 14:00 01/14/20 22:00 01/15/20 06:00 Temperature 36.6 C 36.8 C 36.8 C Pulse Rate 76 86 83 Respiratory Rate 16 20 20 Blood Pressure 136/48 L 121/51 L 150/52 H Pulse Oximetry 97 97 99 Intake/Output Intake/Output: Intake & Output 01/12/20 01/13/20 01/14/20 01/15/20 23:59 23:59 23:59 23:59 Intake Total 1890 1260 950 300 Output Total 900 800 100 Balance 990 1260 150 200 Meds/Results Medications: Active Medications Generic Name Dose Route Start Last Admin Trade Name Freq PRN Reason Stop Dose Admin Amlodipine Besylate 10 mg 01/11/20 09:00 01/11/20 09:47 Norvasc PO Not Given DAILY ANGELIKA Aspirin 81 mg 01/11/20 09:00 01/15/20 08:08 Aspirin Ec PO 81 mg DAILY ANGELIKA Administration Carvedilol 25 mg 01/11/20 09:00 01/11/20 21:56 Coreg PO 25 mg Q12HR ANGELIKA Administration Dextrose 12.5 gm 01/11/20 06:35 Dextrose 50% Syringe IV PUSH PRN PRN Hypoglycemia Protocol Docusate Sodium 100 mg 01/13/20 10:11 Colace Capsule PO Q12H PRN Constipation Epoetin Giancarlo-epbx 10,000 units 01/14/20 09:00 01/14/20 10:37 Retacrit SUB-Q 10,000 units MOWEFR ANGELIKA Administration Ferrous Sulfate 324 mg 01/13/20 17:00 01/15/20 08:08 Ferrous Sulfate PO 324 mg BIDWM ANGELIKA Administration Glucagon 1 mg 01/11/20 06:35 Glucagon For Inj IM PRN PRN Hypoglycemia Protocol Glucose 15 gm 01/11/20 06:35 Glutose 15 PO PRN PRN Hypoglycemia Protocol Sodium Chloride 1,000 mls @ 0 mls/hr 01/13/20 09:25 01/15/20 01:03 Normal Saline Iv IV CONT Not Given .[id number] ANGELIKA KVO Iron Sucrose 200 mg/ Sodium 60 mls @ 120 mls/hr 01/13/20 10:05 01/15/20 08:09 Chloride IVPB 01/17/20 09:01 120 mls/hr QAM ANGELIKA Administration Insulin Aspart 2 - 5 units 01/14/20 12:00 01/15/20 07:31 Novolog SUB-Q Not Given TIDWM [facility] Protocol Isosorbide Mononitrate 30 mg 01/11/20 09:00 01/12/20 09:13 Imdur PO 30 mg DAILY ANGELIKA Administration Ondansetron HCl 4 mg 01/10/20 20:08 01/12/20 13:43 Zofran Inj IV PUSH 4 mg Q4H PRN Administration Nausea Pantoprazole Sodium 40 mg 01/11/20 09:00 01/15/20 08:05 Protonix Iv IV PUSH 40 mg QAM ANGELIKA Administration Polyethylene Glycol 17 gm 01/13/20 10:11 Miralax PO QAM PRN Constipation Vitamin D 1,000 unit 01/11/20 09:00 01/15/20 08:09 Vitamin D PO 1,000 unit BID ANGELIKA Administration Radiology Results: ITS Impressions Chest X-Ray 01/10/20 16:16 IMPRESSION: No acute cardiopulmonary findings. Head CT 01/10/20 16:38 IMPRESSION: 1. Punctate old lacunar infarction. 2. Chronic age related findings. Abdomen/Pelvis CT 01/10/20 17:38 IMPRESSION: 1. Mild gallbladder distention. Given elevated liver enzymes, acute cholecystitis is a consideration. Correlate for right upper quadrant tenderness and consider right upper quadrant ultrasound or nuclear hepatobiliary scan. Upper Quadrant Ultrasound 01/10/20 18:48 IMPRESSION: 1. Trace pericholecystic fluid without additional findings of acute cholecystitis. If there is high clinical suspicion for cholecystitis, nuclear hepatobiliary scan is recommended. Hepatobiliary Scan Nuclear Medicine 01/11/20 14:25 IMPRES
--- NOTE | 2020-01-15 11:16 | PM.IMPN ---
Progress Note: A&P Assessment and Plan (1) Elevated LFTs: Code(s): R79.89 - Other specified abnormal findings of blood chemistry Status: Acute Assessment and Plan: LFTs were markedly elevated at presentation. CT abd/pelvis revealed mild gallbladder distention. RUQ US revealed trace pericholecystic fluid without evidence of acute cholecystitis. General surgery was consulted. HIDA scan was performed and revealed GBEF of 49%. General surgery felt that transaminitis was due to intrinsic hepatic pathology and GI was consulted. Hepatitis panel was negative. Her transaminitis was felt to be due to shock liver from hypotension. Continue to hold rosuvastatin. Avoid hepatotoxic agents. Her LFTs continue to improve with gentle IV fluids and BP stabilization. Continue to monitor. GI and general surgery input is greatly appreciated. (2) Acute kidney injury superimposed on chronic kidney disease: Code(s): N17.9 - Acute kidney failure, unspecified; N18.9 - Chronic kidney disease, unspecified Status: Acute Assessment and Plan: She has a hx of CKD stage 4 with baseline Cr of 3-4 prior to her admission. She is established with Dr. Carr. Cr continues to increase and is 10.7 today. ATN is suspected and may be due to hypotension prior to admission since this was suspected as the cause for her transaminitis. Renal US was performed and was consistent with medical renal disease. Nephrology is on board and input is greatly appreciated. It is possible that her renal function may not improve and nephrology has recommended that she initiate dialysis. General surgery has been consulted for tunneled hemodialysis catheter placement. Her will come this afternoon to discuss the procedure and sign consents. She is receiving very gentle hydration per nephrology. Urine output is reasonable. Continue to avoid nephrotoxins and renally dose medications. Await further input per nephrology. (3) Abnormal urinalysis: Code(s): R82.90 - Unspecified abnormal findings in urine Status: Ruled-out Assessment and Plan: UA was suspicious for UTI but the final urine culture was negative. Antibiotics were discontinued. She has no urinary complaints. (4) Diabetes mellitus with hypoglycemia: Code(s): E11.649 - Type 2 diabetes mellitus with hypoglycemia without coma Status: Chronic Assessment and Plan: She had episodes of hypoglycemia with blood sugar as low as 31 the morning of 01/11/20. She is tolerating PO intake well at this time. She did have a low blood sugar reading of 54 01/13/20. Fasting blood sugar today was 77. Plan to continue a consistent carb diet. Continue ACHS glucose monitoring, hypoglycemia protocol, and low dose sliding scale insulin. (5) Essential (primary) hypertension: Code(s): I10 - Essential (primary) hypertension Status: Chronic Assessment and Plan: Blood pressures were reviewed and her 6:00 AM reading was 150/52. She did have low readings yesterday morning. Prior to admission blood pressure medications are on hold at this time due to suspected hypotension prior to admission. Continue to monitor trend and resume prior to admission blood pressure medications once appropriate. (6) Dementia, unspecified, without behavioral disturbance: Qualifiers: Dementia type: unspecified type Qualified Code(s): F03.90 - Unspecified dementia without behavioral disturbance Code(s): F03.90 - Unspecified dementia without behavioral disturbance Status: Chronic Assessment and Plan: Chronic. She does exhibit confusion but seems to be close to her baseline. Her renal failure may be contributing to confusion and she will be initiating hemodialysis as above. She is not on any prior to admission medications for dementia. Continue to monitor. (7) Anemia: Qualifiers: Anemia type: due to chronic kidney disease Qualified Code(s):
--- NOTE | 2020-01-15 11:26 | P.PNNP_ITS ---
Progress Note: A&P Assessment and Plan (1) Acute kidney injury: Code(s): N17.9 - Acute kidney failure, unspecified Status: Acute Assessment and Plan: * suspicion falls on possible ATN... * if her elevated LFTs are a response to shock liver due to hypotension, then it is very possible that this hypotension episode resulted in renal hypoperfusion and subsequent insult * Given her advanced CKD at baseline, she may not the reserve to fully recover and this insult may have pushed her over to the necessity of renal replacement therapy * urine lytes not consistent with prerenal azotemia * renal ultrasound c/w medical renal disease * will proceed with dialysis initiation -- Surgery consulted for tunneled HD cat heter placement (2) CKD (chronic kidney disease) stage 4, GFR 15-29 ml/min: Code(s): N18.4 - Chronic kidney disease, stage 4 (severe) Status: Acute Assessment and Plan: * baseline creatinine ~ 3.0 - 4.0mg/dl * thought to be secondary to diabetes + hypertension + age based on outpatient evaluation * apparently, family interested in pursuing peritoneal dialysis when dialysis is needed * discussed with at bedside yesterday (3) Elevated LFTs: Code(s): R79.89 - Other specified abnormal findings of blood chemistry Status: Acute Assessment and Plan: * presumed to be secondary to hypotension episode (shock liver) * slowly improving * Gastroenterology following (4) Anemia: Qualifiers: Anemia type: due to chronic kidney disease Qualified Code(s): N18.4 - Chronic kidney disease, stage 4 (severe); D63.1 - Anemia in chronic kidney disease Code(s): D64.9 - Anemia, unspecified Status: Chronic Assessment and Plan: * probably on the basis of CKD and PREET * follow trend of H/H * evidence of iron deficiency by anemia labs - started IV venofer * Epogen with HD once initiated (5) Essential (primary) hypertension: Code(s): I10 - Essential (primary) hypertension Status: Chronic Assessment and Plan: * well controlled -- perhaps too well controlled on admission given #1 and #3 * BP medications with parameters * follow hemodynamics (6) Diabetes: Code(s): E11.9 - Type 2 diabetes mellitus without complications Status: Acute Assessment and Plan: * issues with hypoglycemia on admission * follow accuchecks Wikacy proceed with initiation of hemodialysis (with the tenative plan to transition to peritoneal dialysis as an outpatient) given ongoing issues with acidosis and rising BUN and creatininie -- Surgery consuted for tunneled HD catheter placement with initiation of dialysis to follow once catheter in place Will continue to follow. Subjective Date/time seen: 01/15/20 11:26 Continues to do reasonably well without any acute issues or problems to report; some confusion due to dementia but appears at baseline; no other compliaints or problems voiced at this time or earlier today. Exam 2 Narrative: Exam Narrative: General: WD/WN female in NAD Heart: normal S1 and S2; no rub Lungs: clear to auscultation Abdomen: soft, nontender, nondistended, positive bowel sounds Extremities: no cyanosis or clubbing; trace edema Skin: warm and dry Objective Data Vital Signs Vital Signs: Vital Signs Temp Pulse Resp BP Pulse Ox 01/15/20 08:00 83 20 99 01/15/20 06:00 36.8 C 83 20 150/52 H 99
--- NOTE | 2020-01-15 11:26 | PM.PNNEP ---
Progress Note: A&P Assessment and Plan (1) Acute kidney injury: Code(s): N17.9 - Acute kidney failure, unspecified Status: Acute Assessment and Plan: suspicion falls on possible ATN... if her elevated LFTs are a response to shock liver due to hypotension, then it is very possible that this hypotension episode resulted in renal hypoperfusion and subsequent insult Given her advanced CKD at baseline, she may not the reserve to fully recover and this insult may have pushed her over to the necessity of renal replacement therapy urine lytes not consistent with prerenal azotemia renal ultrasound c/w medical renal disease will proceed with dialysis initiation -- Surgery consulted for tunneled HD catheter placement (2) CKD (chronic kidney disease) stage 4, GFR 15-29 ml/min: Code(s): N18.4 - Chronic kidney disease, stage 4 (severe) Status: Acute Assessment and Plan: baseline creatinine ~ 3.0 - 4.0mg/dl thought to be secondary to diabetes + hypertension + age based on outpatient evaluation apparently, family interested in pursuing peritoneal dialysis when dialysis is needed discussed with at bedside yesterday (3) Elevated LFTs: Code(s): R79.89 - Other specified abnormal findings of blood chemistry Status: Acute Assessment and Plan: presumed to be secondary to hypotension episode (shock liver) slowly improving Gastroenterology following (4) Anemia: Qualifiers: Anemia type: due to chronic kidney disease Qualified Code(s): N18.4 - Chronic kidney disease, stage 4 (severe); D63.1 - Anemia in chronic kidney disease Code(s): D64.9 - Anemia, unspecified Status: Chronic Assessment and Plan: probably on the basis of CKD and PREET follow trend of H/H evidence of iron deficiency by anemia labs - started IV venofer Epogen with HD once initiated (5) Essential (primary) hypertension: Code(s): I10 - Essential (primary) hypertension Status: Chronic Assessment and Plan: well controlled -- perhaps too well controlled on admission given #1 and #3 BP medications with parameters follow hemodynamics (6) Diabetes: Code(s): E11.9 - Type 2 diabetes mellitus without complications Status: Acute Assessment and Plan: issues with hypoglycemia on admission follow accuchecks Riri proceed with initiation of hemodialysis (with the tenative plan to transition to peritoneal dialysis as an outpatient) given ongoing issues with acidosis and rising BUN and creatininie -- Surgery consuted for tunneled HD catheter placement with initiation of dialysis to follow once catheter in place Will continue to follow. Subjective Date/time seen: 01/15/20 11:26 Continues to do reasonably well without any acute issues or problems to report; some confusion due to dementia but appears at baseline; no other compliaints or problems voiced at this time or earlier today. Exam Narrative: Exam Narrative: General: WD/WN female in NAD Heart: normal S1 and S2; no rub Lungs: clear to auscultation Abdomen: soft, nontender, nondistended, positive bowel sounds Extremities: no cyanosis or clubbing; trace edema Skin: warm and dry Objective Data Vital Signs Vital Signs: Vital Signs Temp Pulse Resp BP Pulse Ox 01/15/20 08:00 83 20 99 01/15/20 06:00 36.8 C 83 20 150/52 H 99 01/14/20 22:00 36.8 C 86 20 121/51 L 97 01/14/20 14:00 36.6 C 76 16 136/48 L 97 Intake/Output Intake/Output: Intake & Output 01/12/20 01/13/20 01/14/20 01/15/20 23:59 23:59 23:59 23:59 Intake Total 1890 1260 950 600 Output Total 900 800 100 Balance 990 1260 150 500 Meds/Results Medications: Active Medications Generic Name Dose Route Start Last Admin Trade Name Freq PRN Reason Stop Dose Admin Amlodipine Besylate 10 mg 01/11/20 09:00 01/11/20 09:47 Norvasc PO Not Given DAILY ANGELIKA
--- NOTE | 2020-01-15 11:51 | PM.CNGS ---
Assessment and Plan Assessment and plan (1) Acute kidney injury superimposed on chronic kidney disease: Code(s): N17.9 - Acute kidney failure, unspecified; N18.9 - Chronic kidney disease, unspecified Status: Acute Assessment and Plan: Nephrology requesting placement of a tunneled hemodialysis catheter for initiation of hemodialysis. The patient has not required dialysis in the past. I discussed the patient's case with Dr. Bailon and we will plan to proceed with placement of a tunneled hemodialysis catheter tomorrow in the OR according to the OR schedule. Description of the procedure, risks, benefits, indications, and expected outcomes were discussed with the patient in detail. All questions were answered and she is agreeable to proceed. I will also plan to discuss this with her later today with the patient's verbal consent, due to her baseline dementia. Thank you for allowing me to see the patient in consultation. (2) CAD (coronary artery disease): Qualifiers: Coronary Disease-Associated Artery/Lesion type: [place] artery [place] vs. transplanted heart: [place] heart Associated angina: with stable angina Qualified Code(s): I25.118 - Atherosclerotic heart disease of [place] coronary artery with other forms of angina pectoris Code(s): I25.10 - Atherosclerotic heart disease of [place] coronary artery without angina pectoris Status: Acute (3) Chronic systolic congestive heart failure, NYHA class 2: Code(s): I50.22 - Chronic systolic (congestive) heart failure Status: Acute (4) Type 2 diabetes mellitus without complication, without long-term current use of insulin: Code(s): E11.9 - Type 2 diabetes mellitus without complications Status: Acute (5) Anemia: Qualifiers: Anemia type: due to chronic kidney disease Qualified Code(s): N18.4 - Chronic kidney disease, stage 4 (severe); D63.1 - Anemia in chronic kidney disease Code(s): D64.9 - Anemia, unspecified Status: Chronic (6) Dementia, unspecified, without behavioral disturbance: Qualifiers: Dementia type: unspecified type Qualified Code(s): F03.90 - Unspecified dementia without behavioral disturbance Code(s): F03.90 - Unspecified dementia without behavioral disturbance Status: Chronic (7) Elevated LFTs: Code(s): R79.89 - Other specified abnormal findings of blood chemistry Status: Acute Additional Plan Discussed the patient's case and plan of care with Dr. Bailon today. History of Present Illness Consult details Consult date: 01/15/20 Reason for consult: other (Placement of tunneled dialysis catheter) Requesting physician: Tosha Verdin MD Narrative: This is a 64-year-old female who is presented to the hospital with acute on chronic renal failure and has a history of hypertension, type 2 diabetes and dementia. She initially was brought to the ER for evaluation of hypoglycemia and fatigue. Initially, the patient was also found to have elevated liver enzymes and mild gallbladder distention on the CT of the abdomen and pelvis, and subsequently had a right upper quadrant ultrasound performed which showed trace pericholecystic fluid without additional findings of acute cholecystitis. Our service had evaluated the patient and did not feel she had acute cholecystitis. It was recommended that she follow a low fat diet and have GI evaluate her elevated liver enzymes. GI was consulted and the elevation in liver enzymes was felt to be due to a ?shock liver. LFTs have been monitored and have been trending down during her hospitalization. Nephrology was also consulted for the acute on chronic renal failure. Her labs have been monitored and her kidney function has slowly worsened over the course of this hospitalization. It is felt that the decline in her kidney function is due to hypotension resulting in renal hypoperfusion causing an acute insult on top of the chronic advanc
[2020-01-15 12:34] LABS: Glucose Point of Care 104 (65-105)
[2020-01-15] MEDS: LACTATED RINGERS 1,000 ML 30 ML IV CONT (13:24)
[2020-01-15 17:38] LABS: Glucose Point of Care 147 (65-105)
[2020-01-15] MEDS: SODIUM CHLORIDE 0.9% IV 1,000 ML 30 ML IV CONT (21:18)
[2020-01-15 22:00] VITALS: BP 102/60; PULSE 82; RESP 20; TEMP 36.6; O2SAT 100
[2020-01-16] VITALS (25 sets, daily range): BP systolic 94–190; BP diastolic 49–87; PULSE 70–94; RESP 10–20; TEMP 36.4–37.6; O2SAT 97–100
[2020-01-16 01:31] LABS: Glucose Point of Care 154 (65-105)
[2020-01-16 06:16] LABS: Hematocrit 28.7 % (37.0-47.0); Hemoglobin 9.1 g/dL (12.0-15.0); Mean Corpuscular HGB Conc 31.7 g/dl (32-36); Mean Corpuscular Hemoglobin 29.8 pg (26-34); Mean Corpuscular Volume 94.1 fl (80-100); Mean Platelet Volume 9.8 fl (7.4-10.4); Platelet Count Result 185 k/mm3 (150-375); Red Blood Count 3.05 M/mm3 (4.2-5.4); Red Cell Distribution Width 16.4 % (11.5-14.5); White Blood Count 8.7 K/mm3 (4.5-10.0)
[2020-01-16 06:22] LABS: INR 1.2; Prothrombin Time 14.7 Seconds (11.1-14.7)
[2020-01-16 06:23] LABS: Partial Thromboplastin Time 30.9 SECONDS (22.3-36.8)
[2020-01-16 06:27] LABS: Alanine Aminotransferase 322 U/L (4-35); Albumin Level 2.7 g/dL (3.5-5.1); Alkaline Phosphatase 126 U/L (38-126); Aspartate Amino Transferase 80 U/L (14-36); Bilirubin,Total 0.2 mg/dL (0.2-1.3); Blood Urea Nitrogen 72 mg/dL (7-17); Calcium 7.6 mg/dL (8.4-10.2); Carbon Dioxide 12 mmol/L (22-30); Chloride 110 mmol/L (98-107); Estimated CRCL calculation 4 ml/min; Estimated Glomerular Filt Rate 4; Glucose 96 mg/dL (65-105); Potassium 4.6 mmol/L (3.4-5.0); Sodium 135 mmol/L (137-145)
[2020-01-16 08:57] LABS: Glucose Point of Care 85 (65-105)
[2020-01-16] MEDS: PANTOPRAZOLE SODIUM IV 40 MG VIAL IV PUSH (09:18)
--- NOTE | 2020-01-16 09:29 | WPDGIPROGNO ---
Progress Note: A&P Additional Plan Patient unchanged. Appears comfortable at rest. Offers no complaints. Physical exam reveals abdomen to be soft nontender with no organomegaly. Labs reveal AST 80, ALT 322, alk-phos 126, bilirubin 0.2. Impression 1. Resolving shock liver secondary to hypotensive episode. Clinically improved. No intervention planned. 2. Renal insufficiency. Creatinine now 10. 3. Dementia. 4. Chronic anemia. Subjective Date/time seen: 01/16/20 09:30 Objective Data Vital Signs Vital Signs: Vital Signs - 24 hr 01/15/20 22:00 01/16/20 06:00 Temperature 36.6 C 36.4 C Pulse Rate 82 88 Respiratory Rate 20 20 Blood Pressure 102/60 101/55 L Pulse Oximetry 100 100 Intake/Output Intake/Output: Intake & Output 01/13/20 01/14/20 01/15/20 01/16/20 23:59 23:59 23:59 23:59 Intake Total 7447 230 3611 100 Output Total 800 500 100 Balance 1260 150 980 0 Meds/Results Medications: Active Medications Generic Name Dose Route Start Last Admin Trade Name Freq PRN Reason Stop Dose Admin Amlodipine Besylate 10 mg 01/11/20 09:00 01/11/20 09:47 Norvasc PO Not Given DAILY ANGELIKA Aspirin 81 mg 01/11/20 09:00 01/15/20 08:08 Aspirin Ec PO 81 mg DAILY ANGELIKA Administration Carvedilol 25 mg 01/11/20 09:00 01/11/20 21:56 Coreg PO 25 mg Q12HR ANGELIKA Administration Dextrose 12.5 gm 01/11/20 06:35 Dextrose 50% Syringe IV PUSH PRN PRN Hypoglycemia Protocol Docusate Sodium 100 mg 01/13/20 10:11 Colace Capsule PO Q12H PRN Constipation Epoetin Giancarlo-epbx 10,000 units 01/14/20 09:00 01/14/20 10:37 Retacrit SUB-Q 10,000 units MOWEFR ANGELIKA Administration Ferrous Sulfate 324 mg 01/13/20 17:00 01/15/20 17:34 Ferrous Sulfate PO 324 mg BIDWM ANGELIKA Administration Glucagon 1 mg 01/11/20 06:35 Glucagon For Inj IM PRN PRN Hypoglycemia Protocol Glucose 15 gm 01/11/20 06:35 Glutose 15 PO PRN PRN Hypoglycemia Protocol Iron Sucrose 200 mg/ Sodium 60 mls @ 120 mls/hr 01/13/20 10:05 01/15/20 09:01 Chloride IVPB 01/17/20 09:01 Infused QAM ANGELIKA Infusion Lactated Ringer's 1,000 mls @ 30 mls/hr 01/15/20 12:55 01/15/20 20:43 Lr - Lactated Ringers Iv IV CONT Infused .Q24H ANGELIKA Infusion Cefazolin Sodium 2 gm in 50 mls @ 100 mls/hr 01/16/20 12:00 Ancef 2 Gm/D5w 50 Ml IVPB 01/16/20 12:29 ONCE ONE Sodium Chloride 1,000 mls @ 30 mls/hr 01/15/20 20:55 01/15/20 21:18 Normal Saline Iv IV CONT 30 mls/hr .Q24H ANGELIKA Administration Insulin Aspart 2 - 5 units 01/14/20 12:00 01/16/20 09:21 Novolog SUB-Q Not Given TIDWM [facility] Protocol Isosorbide Mononitrate 30 mg 01/11/20 09:00 01/12/20 09:13 Imdur PO 30 mg DAILY ANGELIKA Administration Ondansetron HCl 4 mg 01/10/20 20:08 01/12/20 13:43 Zofran Inj IV PUSH 4 mg Q4H PRN Administration Nausea Pantoprazole Sodium 40 mg 01/11/20 09:00 01/16/20 09:18 Protonix Iv IV PUSH 40 mg QAM ANGELIKA Administration Polyethylene Glycol 17 gm 01/13/20 10:11 Miralax PO QAM PRN Constipation Vitamin D 1,000 unit 01/11/20 09:00 01/15/20 17:34 Vitamin D PO 1,000 unit BID ANGELIKA Administration Radiology Results: ITS Impressions Chest X-Ray 01/10/20 16:16 IMPRESSION: No acute cardiopulmonary findings. Head CT 01/10/20 16:38 IMPRESSION: 1. Punctate old lacunar infarction. 2. Chronic age related findings. Abdomen/Pelvis CT 01/10/20 17:38 IMPRESSION: 1. Mild gallbladder distention. Given elevated liver enzymes, acute cholecystitis is a consideration. Correlate for right upper quadrant tenderness and consider right upper quadrant ultrasound or nuclear hepatobiliary scan. Upper Quadrant Ultrasound 01/10/20 18:48 IMPRESSION: 1. Trace pericholecystic fluid without additional findings of acute cholecystitis. If there is high
--- NOTE | 2020-01-16 11:10 | PC.NURSE ---
To OR per bed.
[2020-01-16] MEDS: LACTATED RINGERS 1,000 ML 30 ML IV CONT (11:20)
--- NOTE | 2020-01-16 11:20 | WPDANESEPPF ---
Anes - Initial Pre Proc Eval Procedure: Operation Date: 01/16/20 12:30 Proposed Procedures p INSERTION TUNNELLED DIALYSIS CATHETER - Bobby Bailon DO Date/Time: 01/16/20 11:20 Surgeon: Kerry Galindo PA-C Pre Op Diagnosis: Low blood sugars, dementia Patient Data Age: 64 Gender: F Height: 5 ft 6 in Weight: 55 kg Last Vital Signs Temp 36.4 C 01/16/20 06:00 Pulse 88 01/16/20 06:00 Resp 20 01/16/20 06:00 BP 101/55 L 01/16/20 06:00 Pulse Ox 100 01/16/20 06:00 Allergies Allergy/AdvReac Type Severity Reaction Status Date / Time No Known Allergies Allergy Unverified 12/27/19 11:13 Home Medications Medication Instructions Recorded Confirmed Type aspirin 81 mg tablet,delayed 81 mg PO DAILY 06/06/19 01/10/20 History release carvedilol 25 mg tablet 25 mg PO Q12H 06/06/19 01/10/20 History cholecalciferol (vitamin D3) 25 1,000 unit PO BID cap 06/06/19 01/10/20 History mcg (1,000 unit) capsule ezetimibe 10 mg tablet 10 mg PO DAILY 06/06/19 01/10/20 History isosorbide mononitrate 30 mg 30 mg PO DAILY 06/06/19 01/10/20 History tablet,extended release 24 hr rosuvastatin 40 mg tablet 40 mg PO DAILY 06/06/19 01/10/20 History ferrous sulfate 325 mg PO DAILY #30 tablet 06/11/19 01/10/20 Rx amlodipine 10 mg PO DAILY 01/10/20 01/10/20 History glimepiride 1 mg PO AC 01/10/20 01/10/20 History multivitamin,dp-mqqs-bcttepzg 1 tablet PO DAILY 01/10/20 01/10/20 History [Complete Multivitamin] Laboratory Tests 01/15/20 01/15/20 01/15/20 12:10 17:20 21:02 WBC RBC Hgb Hct MCV MCH MCHC RDW Plt Count MPV PT INR APTT Sodium Potassium Chloride Carbon Dioxide BUN Creatinine Estim Creat Clear Calc Estimated GFR Glucose POC Capillary Glucose 104 mg/dl mg/dl 147 mg/dl H mg/dl 154 mg/dl H mg/dl (65-105) (65-105) (65-105) Calcium Total Bilirubin AST ALT Alkaline Phosphatase Total Protein Albumin 01/16/20 01/16/20 01/16/20 06:01 06:01 06:01 WBC 8.7 K/mm3 K/mm3 (4.5-10.0) RBC 3.05 M/mm3 L M/mm3 (4.2-5.4) Hgb 9.1 g/dL L g/dL (12.0-15.0) Hct 28.7 % L % (37.0-47.0) MCV 94.1 fl fl (80-100) MCH 29.8 pg pg (26-34) MCHC 31.7 g/dl L g/dl (32-36) RDW 16.4 % H % (11.5-14.5) Plt Count 185 k/mm3 k/mm3 (150-375) MPV 9.8 fl fl (7.4-10.4) PT 14.7 Seconds Seconds (11.1-14.7) INR 1.2 APTT 30.9 SECONDS SECONDS (22.3-36.8) Sodium 135 mmol/L L mmol/L (137-145) Potassium 4.6 mmol/L mmol/L (3.4-5.0) Chloride 110 mmol/L H mmol/L (98-107) Carbon Dioxide 12 mmol/L L mmol/L (22-30) BUN 72 mg/dL H mg/dL (7-17) Creatinine 10.60 mg/dL H mg/dL (0.7-1.0) Estim Creat Clear Calc 4 ml/min ml/min Estimated GFR 4 L (59 - ) Glucose 96 mg/dL mg/dL (65-105) POC Capillary Glucose Calcium 7.6 mg/dL L mg/dL (8.4-10.2) Total Bilirubin 0.2 mg/dL mg/dL (0.2-1.3) AST 80 U/L H U/L (14-36) ALT 322 U/L H U/L (4-35) Alkaline Phosphatase 126 U/L U/L (38-126) Total Protein 5.0 g/dL L g/dL (6.3-8.2) Albumin 2.7 g/dL L g/dL (3.5-5.1) 01/16/20 08:54 WBC RBC Hgb Hct MCV MCH MCHC RDW Plt Count MPV PT INR APTT Sodium Potassium Chloride Carbon Dioxide BUN Creatinine Estim Creat Clear Calc
[2020-01-16 11:42] LABS: Glucose Point of Care 89 (65-105)
[2020-01-16] MEDS: ceFAZolin 2 GM/D5W 50 ML 2 GM/50 ML BAG IVPB (11:54)
[2020-01-16] MEDS: HEPARIN SODIUM 5,000 UNITS/ML VIAL 5000 UNITS IRRIGATION (12:17)
[2020-01-16] MEDS: HEPARIN SODIUM, PORCINE 10,000 UNITS/10 ML VIAL 4000 UNITS IV PUSH (12:18)
[2020-01-16] MEDS: LIDO 1%/EPINEPHRINE 1:100,000 20 ML VIAL INFILTRATE (12:18)
--- NOTE | 2020-01-16 12:35 | P.OP_ITS ---
Procedure Note - Detailed Date of procedure: 01/16/20 Pre-op diagnosis: Chronic renal failure, Stage 4 Post-op diagnosis: same Procedure performed: Right internal jugular Tunneled Dialysis Catheter placement using ultrasound and fluoroscopic guidance Description of procedure: * Procedure as well as risks, benefits, and alternatives were discussed with patient. Written consent was obtained and placed in chart prior to procedure. Patient was brought back to surgical suite. Placed supine on operating table. Time-out was done confirm patient procedure. IV sedation was then administered by the Anesthesia Department. Her right chest and neck area was prepped and draped in sterile fashion using chlorhexidine prep. Patient was placed in Trendelenburg position. SonoSite ultrasound was used to identify the right internal jugular vein. It was visualized as a compressible vessel just lateral to the carotid artery. 1% lidocaine with epinephrine was infiltrated directly over the vessel under ultrasound guidance. An 18 gauge introducer needle was then advanced under ultrasound guidance directly into the right internal jugular vein. Dark nonpulsatile blood was aspirated. A 0.035 in guidewire was then advanced thro ugh the needle under fluoroscopic guidance. The guidewire was visualized advancing all the way down into the superior vena cava. 1% lidocaine with epinephrine was then infiltrated on the right anterior chest and along the tract up to the guidewire insertion site. A 5 mm incision was made with a 15 blade scalpel. A small dulce incision was then also made at the insertion site at the neck. The tunneler was then advanced from the chest incision up to the neck incision and the catheter tubing was brought up through this tract. The dilator and sheath were then advanced over the guidewire under fluoroscopic visualization. The dilator and guidewire were then removed leaving the sheath in place. The catheter tubing was then advanced through the sheath under fluoroscopic guidance. The sheath was unsnapped and carefully peeled away. The catheter tubing was released underneath the neck incision. Fluoroscopy was used to confirm proper placement of the catheter tubing and no kinks along its path. The catheter was then hep-locked with Hep-Lock solution. The skin of the incisions was then approximated using 4-0 Monocryl subcuticular suture. Exofin glue was then applied at the neck incision and 2x2 gauze and Tegaderm drassing applied at the chest. The patient was then awakened from anesthesia and transferred to recovery. Implants: 24 cm [id number] Dialysis Catheter Anesthesia: MAC and local (1% lidocaine with epinephrine) Surgeon: Bobby Bailon DO Estimated blood loss (mL): 5 Complications: No immediate complications Condition: stable Disposition: floor Findings: * Ultrasound guidance was used to identify the right internal jugular vein. This was visualized as a compressible vessel just lateral to the carotid artery. An 18 gauge introducer needle was inserted under ultrasound guidance. Fluoroscopy was then used to guide advancement of the guidewire. The dilators and sheath were also advanced under fluoroscopic guidance. The 24 cm dialysis catheter was advanced under fluoroscopic guidance. The final fluoroscopic images demonstrated the catheter tip at in the distal SVC and no kinks along its path.
[2020-01-16] MEDS: SODIUM CHLORIDE 0.9% IV 1,000 ML 30 ML IV CONT (12:39)
[2020-01-16 13:31] LABS: Glucose Point of Care 98 (65-105)
--- NOTE | 2020-01-16 14:00 | PC.NURSE ---
Back from OR via bed.
--- NOTE | 2020-01-16 14:10 | PC.NURSE ---
To dialysis via bed.
[2020-01-16] MEDS: IRON SUCROSE COMPLEX 200 MG in SODIUM CHLORIDE 0.9% IV 50 ML 120 MG IVPB (14:12)
--- NOTE | 2020-01-16 14:39 | PM.IMPN ---
Progress Note: A&P Assessment and Plan (1) ESRD on hemodialysis: Code(s): N18.6 - End stage renal disease; Z99.2 - Dependence on renal dialysis Status: Acute Assessment and Plan: She has a hx of CKD stage 4 with baseline Cr of 3-4 prior to her admission. She is established with Dr. Carr. ATN is suspected and may be due to hypotension prior to admission since this was suspected as the cause for her transaminitis. Renal US was performed and was consistent with medical renal disease. Nephrology is on board and input is greatly appreciated. It is possible that her renal function may not improve and nephrology has recommended that she initiate dialysis. General surgery has been consulted and she underwent right internal jugular tunneled hemodialysis catheter placement today by Dr. Bailon and initiated hemodialysis this afternoon which she is tolerating well. Appreciate continued nephrology input. Continue to avoid nephrotoxins and renally dose medications. Hopeful discharge soon with outpatient HD per nephrology. (2) Elevated LFTs: Code(s): R79.89 - Other specified abnormal findings of blood chemistry Status: Acute Assessment and Plan: LFTs were markedly elevated at presentation. CT abd/pelvis revealed mild gallbladder distention. RUQ US revealed trace pericholecystic fluid without evidence of acute cholecystitis. General surgery was consulted. HIDA scan was performed and revealed GBEF of 49%. General surgery felt that transaminitis was due to intrinsic hepatic pathology and GI was consulted. Hepatitis panel was negative. Her transaminitis was felt to be due to shock liver from hypotension. Continue to hold rosuvastatin. Avoid hepatotoxic agents. Her LFTs continue to improve. Continue to monitor. GI and general surgery input is greatly appreciated. (3) Diabetes mellitus with hypoglycemia: Code(s): E11.649 - Type 2 diabetes mellitus with hypoglycemia without coma Status: Chronic Assessment and Plan: She had episodes of hypoglycemia with blood sugar as low as 31 the morning of 01/11/20 and 54 01/13/20. Fasting blood sugar today was 96. She was NPO today awaiting tunneled hemodialysis catheter placement. Continue a consistent carb diet. Continue ACHS glucose monitoring, hypoglycemia protocol, and low dose sliding scale insulin. (4) Essential (primary) hypertension: Code(s): I10 - Essential (primary) hypertension Status: Chronic Assessment and Plan: Blood pressures were reviewed and are elevated. Plan to resume amlodipine tomorrow at a reduced dose of 5mg PO QD. Carvedilol is on hold at this time as she does have hepatic impairment and was hypotensive prior to admission. (5) Dementia, unspecified, without behavioral disturbance: Qualifiers: Dementia type: unspecified type Qualified Code(s): F03.90 - Unspecified dementia without behavioral disturbance Code(s): F03.90 - Unspecified dementia without behavioral disturbance Status: Chronic Assessment and Plan: Chronic. She is alert and oriented x3 today and her confusion is improving. She is not on any prior to admission medications for dementia. Continue to monitor. (6) Anemia: Qualifiers: Anemia type: due to chronic kidney disease Qualified Code(s): N18.4 - Chronic kidney disease, stage 4 (severe); D63.1 - Anemia in chronic kidney disease Code(s): D64.9 - Anemia, unspecified Status: Chronic Assessment and Plan: Chronic and likely due to anemia of chronic disease secondary to CKD. Her H&H appears to be stable from her baseline on review of prior labs. She has no signs of acute signs of bleeding. She is receiving epogen and IV iron per nephrology. Continue to trend H&H. Transfuse PRN to maintain Hb >7. Continue to monitor. (7) DVT prophylaxis: Code(s): Z29.9 - Encounter for prophylactic measures, unspecified Status: Acute
[2020-01-16] MEDS: EPOETIN ALFA-EPBX 10,000 UNITS/ML VIAL 10000 UNITS IV PUSH (15:19)
[2020-01-16] MEDS: CHOLECALCIFEROL 1,000 UNIT TABLET 1000 UNITS PO ×2 (15:21→18:04)
[2020-01-16] MEDS: FERROUS SULFATE 324 MG TABLET PO ×2 (15:22→18:04)
[2020-01-16 15:27] LABS: Glucose Point of Care 73 (65-105)
--- NOTE | 2020-01-16 17:15 | PC.NURSE ---
Back from dialysis via bed.
--- NOTE | 2020-01-16 17:47 | PM.PNNEP ---
Progress Note: A&P Assessment and Plan (1) End stage renal disease: Code(s): N18.6 - End stage renal disease Status: Chronic Assessment and Plan: due to a combination of disease progression + PREET/ARF from presumed ATN suspect PREET/ARF led to further progression resulting in ESRD s/p tunneled HD catheter HD today and tomorrow and likely day after follow electrolytes, volume status, and clearance outpatient dialysis arrangements ongoing (2) Elevated LFTs: Code(s): R79.89 - Other specified abnormal findings of blood chemistry Status: Acute Assessment and Plan: presumed to be secondary to hypotension episode (shock liver) slowly improving Gastroenterology following (3) Anemia: Qualifiers: Anemia type: due to chronic kidney disease Qualified Code(s): N18.4 - Chronic kidney disease, stage 4 (severe); D63.1 - Anemia in chronic kidney disease Code(s): D64.9 - Anemia, unspecified Status: Chronic Assessment and Plan: probably on the basis of CKD follow trend of H/H evidence of iron deficiency by anemia labs - started IV venofer Epogen with HD (4) Essential (primary) hypertension: Code(s): I10 - Essential (primary) hypertension Status: Chronic Assessment and Plan: well controlled -- perhaps too well controlled on admission given #1 and #3 BP medications with parameters follow hemodynamics (5) Diabetes: Code(s): E11.9 - Type 2 diabetes mellitus without complications Status: Acute Assessment and Plan: issues with hypoglycemia on admission follow accuchecks Will continue to follow. Subjective Date/time seen: 01/16/20 17:47 Tolerating dialysis treatment at the time of my visit (seen on HD at ~ 4:55PM); tolerated tunneled HD catheter placement earlier today; no new issues or problems to report; no distress voiced; no events overnight or earlier this AM. Exam Narrative: Exam Narrative: General: WD/WN female in NAD Heart: normal S1 and S2; no rub Lungs: clear to auscultation Abdomen: soft, nontender, nondistended, positive bowel sounds Extremities: no cyanosis or clubbing; trace edema Skin: warm and intact Objective Data Vital Signs Vital Signs: Vital Signs Temp Pulse Resp BP Pulse Ox 01/16/20 17:10 36.7 C 93 16 190/87 H 01/16/20 17:00 88 165/62 H 01/16/20 16:45 88 153/70 H 01/16/20 16:30 88 162/75 H 01/16/20 16:15 89 164/74 H 01/16/20 16:00 89 155/70 H 01/16/20 15:45 87 152/72 H 01/16/20 15:30 94 164/52 H 01/16/20 15:15 86 166/71 H 01/16/20 15:00 81 154/74 H 01/16/20 14:45 81 147/74 H 01/16/20 14:29 77 149/67 H 01/16/20 14:15 36.7 C 78 18 140/51 L 100 01/16/20 14:13 36.7 C 86 16 163/74 H 01/16/20 14:00 36.8 C 77 18 146/49 H 100 01/16/20 13:40 79 15 105/67 99 01/16/20 13:25 75 14 112/77 99 01/16/20 13:10 78 10 L 94/60 L 99 01/16/20 12:55 78 12 111/64 99 01/16/20 12:29 36.6 C 78 10 L 98/63 L 100 01/16/20 11:17 36.9 C 78 18 119/78 100 01/16/20 06:00 36.4 C 88 20 101/55 L 100 01/15/20 22:00 36.6 C 82 20 102/60 100 Intake/Output Intake/Output: Intake & Output 01/13/20 01/14/20 01/15/20 01/16/20 23:59 23:59 23:59 23:59 Intake Total 8815 850 9828 210 Output Total 800 500 100 Balance 1260 150 980 110 Meds/Results Medications: Active Medications Generic Name Dose Route Start Last Admin Trade Name Freq PRN Reason Stop Dose Admin Amlodipine Besylate 10 mg 01/11/20 09:00 01/11/20 09:47 Norvasc PO Not Given DAILY [facility] Amlodipine Besylate 5 mg 01/17/20 09:00 Norvasc PO QAM ANGELIKA Aspirin 81 mg 01/11/20 09:00 01/16/20 15:22 Aspirin Ec PO Not Given DAILY ANG[facility]A Carvedilol 25 mg 01/11/20 09:00 01/11/20 21:56 Coreg PO 25 mg Q12HR ANGELIKA Administration Dextrose 12.5 gm 01/11/20 06:35 D
[2020-01-16 18:03] LABS: Glucose Point of Care 150 (65-105)
[2020-01-16 21:12] LABS: Chloride Rand Ur 38 mmol/L (32-290); Chloride/Creatinine Rand Ur 141 (38-318); Creatinine Random Urine 27 mg/dL (20-275)
[2020-01-17] VITALS (21 sets, daily range): BP systolic 97–130; BP diastolic 51–69; PULSE 77–98; RESP 12–18; TEMP 36.2–37.1; O2SAT 97–99
[2020-01-17 02:23] LABS: Glucose Point of Care 195 (65-105)
[2020-01-17 06:23] LABS: Hematocrit 28.1 % (37.0-47.0); Hemoglobin 9.1 g/dL (12.0-15.0); Mean Corpuscular HGB Conc 32.4 g/dl (32-36); Mean Corpuscular Volume 92.7 fl (80-100); Mean Platelet Volume 9.9 fl (7.4-10.4); Platelet Count Result 156 k/mm3 (150-375); Red Blood Count 3.03 M/mm3 (4.2-5.4); White Blood Count 8.1 K/mm3 (4.5-10.0)
[2020-01-17 06:47] LABS: Alanine Aminotransferase 179 U/L (4-35); Albumin Level 2.7 g/dL (3.5-5.1); Alkaline Phosphatase 109 U/L (38-126); Aspartate Amino Transferase 76 U/L (14-36); Bilirubin,Total < 0.1 mg/dL (0.2-1.3); Blood Urea Nitrogen 38 mg/dL (7-17); Calcium 7.2 mg/dL (8.4-10.2); Carbon Dioxide 24 mmol/L (22-30); Chloride 104 mmol/L (98-107); Estimated CRCL calculation 7 ml/min; Estimated Glomerular Filt Rate 6; Glucose 89 mg/dL (65-105); Magnesium 1.5 mg/dL (1.6-2.3); Phosphorus 5.1 mg/dL (2.5-4.5); Potassium 3.5 mmol/L (3.4-5.0); Sodium 137 mmol/L (137-145)
--- NOTE | 2020-01-17 07:24 | WPDGIPROGNO ---
Progress Note: A&P Additional Plan Patient unchanged clinically. Comfortable at rest. Not well oriented given her baseline dementia. Physical exam reveals her be are alert. Vital signs stable. Abdomen bowel sounds are present soft nontender with no organomegaly. Labs reveal hemoglobin 9.1, hematocrit 28.1, BUN 38, creatinine 6.6, total bilirubin 0.1, AST 76, ALT 179. Impression 1. Resolving LFTs. Most consistent with shock liver from brief hypotensive episode. I expect resolution of these LFTs. Consider LFTs 1 week after discharge. 2. Renal failure. Outpatient dialysis being considered. 3. Dementia. 4. Hypertension. 5. Diabetes mellitus. Subjective Date/time seen: 01/17/20 07:24 Objective Data Vital Signs Vital Signs: Vital Signs - 24 hr 01/16/20 11:17 01/16/20 12:29 01/16/20 12:55 Temperature 98.4 F 97.8 F Pulse Rate 78 78 78 Respiratory Rate 18 10 L 12 Blood Pressure 119/78 98/63 L 111/64 Pulse Oximetry 100 100 99 01/16/20 13:10 01/16/20 13:25 01/16/20 13:40 Temperature Pulse Rate 78 75 79 Respiratory Rate 10 L 14 15 Blood Pressure 94/60 L 112/77 105/67 Pulse Oximetry 99 99 99 01/16/20 14:00 01/16/20 14:13 01/16/20 14:15 Temperature 98.3 F 98.1 F 98.1 F Pulse Rate 77 86 78 Respiratory Rate 18 16 18 Blood Pressure 146/49 H 163/74 H 140/51 L Pulse Oximetry 100 100 01/16/20 14:29 01/16/20 14:45 01/16/20 15:00 Temperature Pulse Rate 77 80 81 Respiratory Rate 18 Blood Pressure 149/67 H 135/61 154/74 H Pulse Oximetry 100 01/16/20 15:15 01/16/20 15:30 01/16/20 15:45 Temperature Pulse Rate 86 94 70 Respiratory Rate 18 Blood Pressure 166/71 H 164/52 H 131/58 L Pulse Oximetry 99 01/16/20 16:00 01/16/20 16:15 01/16/20 16:30 Temperature Pulse Rate 89 89 88 Respiratory Rate Blood Pressure 155/70 H 164/74 H 162/75 H Pulse Oximetry 01/16/20 16:45 01/16/20 17:00 01/16/20 17:10 Temperature 98.1 F Pulse Rate 88 88 93 Respiratory Rate 16 Blood Pressure 153/70 H 165/62 H 190/87 H Pulse Oximetry 01/16/20 20:00 01/16/20 22:00 01/17/20 01:59 Temperature 99.4 F 99.6 F 98.8 F Pulse Rate 88 91 82 Respiratory Rate 20 16 16 Blood Pressure 109/62 114/63 115/69 Pulse Oximetry 97 98 97 01/17/20 06:12 Temperature 98.1 F Pulse Rate 82 Respiratory Rate 16 Blood Pressure 109/64 Pulse Oximetry 99 Intake/Output Intake/Output: Intake & Output 01/14/20 01/15/20 01/16/20 01/17/20 23:59 23:59 23:59 23:59 Intake Total 950 1480 480 100 Output Total 800 500 500 525 Balance 150 980 -20 -425 Meds/Results Medications: Active Medications Generic Name Dose Route Start Last Admin Trade Name Freq PRN Reason Stop Dose Admin Amlodipine Besylate 10 mg 01/11/20 09:00 01/11/20 09:47 Norvasc PO Not Given DAILY [facility] Amlodipine Besylate 5 mg 01/17/20 09:00 Norvasc PO QAM [facility] Aspirin 81 mg 01/11/20 09:00 01/16/20 15:22 Aspirin Ec PO Not Given DAILY [facility] Carvedilol 25 mg 01/11/20 09:00 01/11/20 21:56 Coreg PO 25 mg Q12HR [facility] Administration Dextrose 12.5 gm 01/11/20 06:35 Dextrose 50% Syringe IV PUSH PRN PRN Hypoglycemia Protocol Docusate Sodium 100 mg 01/13/20 10:11 Colace Capsule PO Q12H PRN Constipation Epoetin Giancarlo 10,000 units 01/17/20 18:46 Epogen IV PUSH 01/17/20 18:47 ONCE ONE Epoetin Giancarlo-epbx 10,000 units 01/16/20 17:00 01/16/20 15:19 Retacrit IV PUSH 10,000 units [id number] [facility] Administration Ferrous Sulfate 324 mg 01/13/20 17:00 01/16/20 18:04 Ferrous Sulfate PO 324 mg BIDWM ANGELIKA Administration Glucagon 1 mg 01/11/20 06:35 Glucagon For Inj IM PRN PRN Hypoglycemia Protocol Glucose 15 gm 01/11/20 06:35 Glutose 15 PO PRN PRN Hypoglycemia Protocol Iron Sucrose 200 mg/ Sodium 60 mls @ 120 mls/hr 01/13/20 10:05 01/16/20 14:42 Chloride IVPB
--- NOTE | 2020-01-17 08:30 | PC.NURSE ---
To dialysis via bed.
[2020-01-17] MEDS: IRON SUCROSE COMPLEX 200 MG in SODIUM CHLORIDE 0.9% IV 50 ML 120 MG IVPB (09:32)
[2020-01-17 09:37] LABS: Glucose Point of Care 89 (65-105)
--- NOTE | 2020-01-17 11:09 | P.PNNP_ITS ---
Progress Note: A&P Assessment and Plan (1) End stage renal disease: Code(s): N18.6 - End stage renal disease Status: Chronic Assessment and Plan: * due to a combination of disease progression + PREET/ARF from presumed ATN * suspect PREET/ARF led to further progression resulting in ESRD * s/p tunneled HD catheter * HD today and tomorrow * follow electrolytes, volume status, and clearance * outpatient dialysis arrangements ongoing (2) Elevated LFTs: Code(s): R79.89 - Other specified abnormal findings of blood chemistry Status: Acute Assessment and Plan: * presumed to be secondary to hypotension episode (shock liver) * slowly improving * Gastroenterology following (3) Anemia: Qualifiers: Anemia type: due to chronic kidney disease Qualified Code(s): N18.4 - Chronic kidney disease, stage 4 (severe); D63.1 - Anemia in chronic kidney dis ease Code(s): D64.9 - Anemia, unspecified Status: Chronic Assessment and Plan: * probably on the basis of CKD * follow trend of H/H * evidence of iron deficiency by anemia labs - started IV venofer * Epogen with HD (4) Essential (primary) hypertension: Code(s): I10 - Essential (primary) hypertension Status: Chronic Assessment and Plan: * well controlled * BP medications with parameters * follow hemodynamics (5) Diabetes: Code(s): E11.9 - Type 2 diabetes mellitus without complications Status: Acute Assessment and Plan: * issues with hypoglycemia on admission * follow accuchecks Will continue to follow. Subjective Date/time seen: 01/17/20 11:09 Tolerating dialysis at the time of my visit (seen on HD at ~ 11:00am); tolerated dialysis yesterday as well; no acute complaints voiced; no apparent distress to report; no events overnight or this AM. Exam Narrative: Exam Narrative: General: WD/WN female in NAD Heart: normal S1 and S2; no rub Lungs: clear to auscultation Abdomen: soft, nontender, nondistended, positive bowel sounds Extremities: no cyanosis or clubbing; trace edema Skin: no rash Objective Data Vital Signs Vital Signs: Vital Signs Temp Pulse Resp BP Pulse Ox 01/17/20 11:00 80 106/56 L 01/17/20 10:45 98 97/55 L 01/17/20 10:30 79 110/59 L 01/17/20 10:15 77 105/57 L 01/17/20 10:00 80 101/55 L 01/17/20 09:45 81 112/61 01/17/20 09:30 81 98/51 L 01/17/20 09:15 81 101/57 L 01/17/20 09:00 83 105/56 L 01/17/20 08:46 81 117/59 L 01/17/20 08:31 37.1 C 80 12 116/61 01/17/20 06:12 36.7 C 82 16 109/64 99 01/17/20 01:59 37.1 C 82 16 115/69 97 01/16/20 22:00 37.6 C 91 16 114/63 98 01/16/20 20:00 37.4 C 88 20 109/62 97 01/16/20 17:10 36.7 C 93 16 190/87 H 01/16/20 17:00 88 165/62 H 01/16/20 16:45 88 153/70 H 01/16/20 16:30 88 162/75 H 01/16/20 16:15 89 164/74 H 01/16/20 16:00 89 155/70 H 01/16/20 15:45 70 18 131/58 L 99 01/16/20 15:30 94 164/52 H 01/16/20 15:15 86 166/71 H 01/16/20 15:00 81 154/74 H 01/16/20 14:45 80 18 135/61 100 01/16/20 14:29 77 149/67 H 01/16/20 14:15 36.7 C 78 18 140/51 L 100 01/16/20 14:13 36.
--- NOTE | 2020-01-17 11:09 | PM.PNNEP ---
Progress Note: A&P Assessment and Plan (1) End stage renal disease: Code(s): N18.6 - End stage renal disease Status: Chronic Assessment and Plan: due to a combination of disease progression + PREET/ARF from presumed ATN suspect PREET/ARF led to further progression resulting in ESRD s/p tunneled HD catheter HD today and tomorrow follow electrolytes, volume status, and clearance outpatient dialysis arrangements ongoing (2) Elevated LFTs: Code(s): R79.89 - Other specified abnormal findings of blood chemistry Status: Acute Assessment and Plan: presumed to be secondary to hypotension episode (shock liver) slowly improving Gastroenterology following (3) Anemia: Qualifiers: Anemia type: due to chronic kidney disease Qualified Code(s): N18.4 - Chronic kidney disease, stage 4 (severe); D63.1 - Anemia in chronic kidney disease Code(s): D64.9 - Anemia, unspecified Status: Chronic Assessment and Plan: probably on the basis of CKD follow trend of H/H evidence of iron deficiency by anemia labs - started IV venofer Epogen with HD (4) Essential (primary) hypertension: Code(s): I10 - Essential (primary) hypertension Status: Chronic Assessment and Plan: well controlled BP medications with parameters follow hemodynamics (5) Diabetes: Code(s): E11.9 - Type 2 diabetes mellitus without complications Status: Acute Assessment and Plan: issues with hypoglycemia on admission follow accuchecks Will continue to follow. Subjective Date/time seen: 01/17/20 11:09 Tolerating dialysis at the time of my visit (seen on HD at ~ 11:00am); tolerated dialysis yesterday as well; no acute complaints voiced; no apparent distress to report; no events overnight or this AM. Exam Narrative: Exam Narrative: General: WD/WN female in NAD Heart: normal S1 and S2; no rub Lungs: clear to auscultation Abdomen: soft, nontender, nondistended, positive bowel sounds Extremities: no cyanosis or clubbing; trace edema Skin: no rash Objective Data Vital Signs Vital Signs: Vital Signs Temp Pulse Resp BP Pulse Ox 01/17/20 11:00 80 106/56 L 01/17/20 10:45 98 97/55 L 01/17/20 10:30 79 110/59 L 01/17/20 10:15 77 105/57 L 01/17/20 10:00 80 101/55 L 01/17/20 09:45 81 112/61 01/17/20 09:30 81 98/51 L 01/17/20 09:15 81 101/57 L 01/17/20 09:00 83 105/56 L 01/17/20 08:46 81 117/59 L 01/17/20 08:31 37.1 C 80 12 116/61 01/17/20 06:12 36.7 C 82 16 109/64 99 01/17/20 01:59 37.1 C 82 16 115/69 97 01/16/20 22:00 37.6 C 91 16 114/63 98 01/16/20 20:00 37.4 C 88 20 109/62 97 01/16/20 17:10 36.7 C 93 16 190/87 H 01/16/20 17:00 88 165/62 H 01/16/20 16:45 88 153/70 H 01/16/20 16:30 88 162/75 H 01/16/20 16:15 89 164/74 H 01/16/20 16:00 89 155/70 H 01/16/20 15:45 70 18 131/58 L 99 01/16/20 15:30 94 164/52 H 01/16/20 15:15 86 166/71 H 01/16/20 15:00 81 154/74 H 01/16/20 14:45 80 18 135/61 100 01/16/20 14:29 77 149/67 H 01/16/20 14:15 36.7 C 78 18 140/51 L 100 01/16/20 14:13 36.7 C 86 16 163/74 H 01/16/20 14:00 36.8 C 77 18 146/49 H 100 01/16/20 13:40 79 15 105/67 99 01/16/20 13:25 75 14 112/77 99 01/16/20 13:10 78 10 L 94/60 L 99 01/16/20 12:55 78 12 111/64 99 01/16/20 12:29 36.6 C 78 10 L 98/63 L 100 01/16/20 11:17 36.9 C 78 18 119/78 100 Intake/Output Intake/Output: Intake & Output 01/14/20 01/15/20 01/16/2002/20 23:59 23:59 23:59 23:59 Intake Total 950 1480 480 100 Output Total 800 500 500 525 Balance 150 980 -20 -425 Meds/Results Medications: Active Medications Generic Name Dose Route Start Last Admin Trade Name Freq PRN Reason Stop Dose Admin Amlodipine Besylate 10 mg 01/11/20 09:00 01/11/20
[2020-01-17] MEDS: EPOETIN ALFA-EPBX 10,000 UNITS/ML VIAL 10000 UNITS IV PUSH (11:18)
--- NOTE | 2020-01-17 11:32 | PCNWS ---
Weekly nutritional screen. Patient is tolerating current diet with adequate intake. No weight loss reported. No nutritional needs at this time.
--- NOTE | 2020-01-17 12:00 | PC.NURSE ---
Back from dialysis via bed.
[2020-01-17] MEDS: HEPARIN SODIUM 1,000 UNITS/ML VIAL 1000 UNITS IV PUSH (12:03)
[2020-01-17] MEDS: CHOLECALCIFEROL 1,000 UNIT TABLET 1000 UNITS PO ×2 (12:34→17:50)
[2020-01-17] MEDS: FERROUS SULFATE 324 MG TABLET PO ×2 (12:34→17:51)
[2020-01-17] MEDS: PANTOPRAZOLE SODIUM IV 40 MG VIAL IV PUSH (12:34)
[2020-01-17] MEDS: ASPIRIN 81 MG ENTERIC TABLET PO (12:34)
[2020-01-17] MEDS: AMLODIPINE BESYLATE 5 MG TABLET PO (12:34)
[2020-01-17 12:54] LABS: Glucose Point of Care 76 (65-105)
--- NOTE | 2020-01-17 15:01 | PM.IMPN ---
Progress Note: A&P Assessment and Plan (1) ESRD on hemodialysis: Code(s): N18.6 - End stage renal disease; Z99.2 - Dependence on renal dialysis Status: Acute Assessment and Plan: She has a hx of CKD stage 4 with baseline Cr of 3-4 prior to her admission. She is established with Dr. Carr. ATN is suspected and may be due to hypotension prior to admission since this was suspected as the cause for her transaminitis. Renal US was performed and was consistent with medical renal disease. Nephrology is on board and input is greatly appreciated. Her renal function continued to worsen so a right IJ tunneled hemodialysis catheter was placed she had her first hemodialysis treatment yesterday (01/17/20). Appreciate continued nephrology input. Continue to avoid nephrotoxins and renally dose medications. Hopeful discharge soon with outpatient HD per nephrology. Care coordination is working on her outpatient dialysis scheduling. (2) Elevated LFTs: Code(s): R79.89 - Other specified abnormal findings of blood chemistry Status: Acute Assessment and Plan: LFTs were markedly elevated at presentation. CT abd/pelvis revealed mild gallbladder distention. RUQ US revealed trace pericholecystic fluid without evidence of acute cholecystitis. General surgery was consulted. HIDA scan was performed and revealed GBEF of 49%. General surgery felt that transaminitis was due to intrinsic hepatic pathology and GI was consulted. Hepatitis panel was negative. Her transaminitis was felt to be due to shock liver from hypotension. Continue to hold rosuvastatin. Avoid hepatotoxic agents. Her LFTs continue to improve. Continue to monitor. GI and general surgery input is greatly appreciated. (3) Diabetes mellitus with hypoglycemia: Code(s): E11.649 - Type 2 diabetes mellitus with hypoglycemia without coma Status: Chronic Assessment and Plan: She had episodes of hypoglycemia with blood sugar as low as 31 the morning of 01/11/20 and 54 01/13/20. Fasting blood sugar today was 89. Blood sugars are reasonably controlled. Continue a consistent carb diet. Continue ACHS glucose monitoring, hypoglycemia protocol, and low dose sliding scale insulin. (4) Essential (primary) hypertension: Code(s): I10 - Essential (primary) hypertension Status: Chronic Assessment and Plan: Blood pressures were reviewed and elevated. Amlodipine was resumed at a reduced dose of 5mg but pressures are soft today. Will decrease amlodipine to 2.5mg and monitor blood pressure closely. Carvedilol is on hold at this time as she does have hepatic impairment and was hypotensive prior to admission. (5) Dementia, unspecified, without behavioral disturbance: Qualifiers: Dementia type: unspecified type Qualified Code(s): F03.90 - Unspecified dementia without behavioral disturbance Code(s): F03.90 - Unspecified dementia without behavioral disturbance Status: Chronic Assessment and Plan: Chronic. She is alert and oriented to person and place. Her states that her memory tends to wax and wane. Continue to monitor. (6) Anemia: Qualifiers: Anemia type: due to chronic kidney disease Qualified Code(s): N18.4 - Chronic kidney disease, stage 4 (severe); D63.1 - Anemia in chronic kidney disease Code(s): D64.9 - Anemia, unspecified Status: Chronic Assessment and Plan: Chronic and likely due to anemia of chronic disease secondary to CKD. Her H&H appears to be stable from her baseline on review of prior labs. She has no signs of acute signs of bleeding. She is receiving epogen and iron per nephrology. Continue to trend H&H. Transfuse PRN to maintain Hb >7. Continue to monitor. (7) DVT prophylaxis: Code(s): Z29.9 - Encounter for prophylactic measures, unspecified Status: Acute Assessment and Plan: Continue SCDs. Subjective Date/time seen:
[2020-01-17 17:55] LABS: Glucose Point of Care 119 (65-105)
[2020-01-18] VITALS (20 sets, daily range): BP systolic 116–174; BP diastolic 57–80; PULSE 76–86; RESP 16–20; TEMP 36.3–37.4; O2SAT 97
[2020-01-18 03:49] LABS: Glucose Point of Care 162 (65-105)
[2020-01-18 07:21] LABS: Alanine Aminotransferase 119 U/L (4-35); Albumin Level 2.7 g/dL (3.5-5.1); Alkaline Phosphatase 109 U/L (38-126); Aspartate Amino Transferase 69 U/L (14-36); Bilirubin,Total 0.3 mg/dL (0.2-1.3); Blood Urea Nitrogen 22 mg/dL (7-17); Calcium 7.3 mg/dL (8.4-10.2); Carbon Dioxide 27 mmol/L (22-30); Chloride 101 mmol/L (98-107); Estimated CRCL calculation 10 ml/min; Estimated Glomerular Filt Rate 10; Glucose 94 mg/dL (65-105); Potassium 3.5 mmol/L (3.4-5.0); Sodium 136 mmol/L (137-145)
[2020-01-18] MEDS: FERROUS SULFATE 324 MG TABLET PO (08:08)
--- NOTE | 2020-01-18 08:10 | PC.NURSE ---
To dialysis via bed.
--- NOTE | 2020-01-18 11:20 | P.PNNP_ITS ---
Progress Note: A&P Assessment and Plan (1) End stage renal disease: Code(s): N18.6 - End stage renal disease Status: Chronic Assessment and Plan: * due to a combination of disease progression + PREET/ARF from presumed ATN * suspect PREET/ARF led to further progression resulting in ESRD * s/p tunneled HD catheter * HD today to complete 3 day initiation * follow electrolytes, volume status, and clearance * outpatient dialysis arrangements in progress (2) Elevated LFTs: Code(s): R79.89 - Other specified abnormal findings of blood chemistry Status: Acute Assessment and Plan: * presumed to be secondary to hypotension episode (shock liver) * slowly improving * Gastroenterology following (3) Anemia: Qualifiers: Anemia type: due to chronic kidney disease Qualified Code(s): N18.4 - Chronic kidney disease, stage 4 (severe); D63.1 - Anemia in chronic kidney disease Code(s): D64.9 - Anemia, unspecified Status: Chronic Assessment and Plan: * probably on the basis of CKD * follow trend of H/H * evidence of iron deficiency by anemia labs - started IV venofer * Epogen with HD (4) Essential (primary) hypertension: Code(s): I10 - Essential (primary) hypertension Status: Chronic Assessment and Plan: * well controlled * BP medications with parameters * follow hemodynamics (5) Diabetes: Code(s): E11.9 - Type 2 diabetes mellitus without complications Status: Acute Assessment and Plan: * issues with hypoglycemia on admission * follow accuchecks Not opposed to discharge from renal perspective if otherwise medically stable and outpatient dialysis schedule finalized. Will continue to follow. Subjective Date/time seen: 01/18/20 11:20 Tolerating 3rd dialysis treatment in a row for initiation of dialysis at the time of my visit (seen on HD at ~ 11:00am); no apparent distress noted; feels reasonably well. Exam Narrative: Exam Narrative: General: WD/WN female in NAD Heart: normal S1 and S2; no rub Lungs: clear to auscultation Abdomen: soft, nontender, nondistended, positive bowel sounds Extremities: no cyanosis or clubbing; trace edema Skin: no nodules Objective Data Vital Signs Vital Signs: Vital Signs Temp Pulse Resp BP Pulse Ox 01/18/20 11:15 83 134/63 01/18/20 11:00 81 140/74 01/18/20 10:45 80 134/64 01/18/20 10:30 78 128/69 01/18/20 10:19 76 147/70 H 01/18/20 10:01 81 131/72 01/18/20 09:45 81 132/62 01/18/20 09:30 81 129/65 01/18/20 09:15 84 128/63 01/18/20 09:00 82 128/66 01/18/20 08:45 81 132/64 01/18/20 08:30 80 131/67 01/18/20 08:20 78 143/69 H 01/18/20 08:10 37.0 C 81 16 148/71 H 01/18/20 06:00 37.4 C 77 20 116/72 97 01/17/20 22:00 36.4 C 83 18 107/53 L 97 01/17/20 14:00 36.8 C 84 16 104/56 L 98 01/17/20 11:50 37.0 C 80 16 123/62 01/17/20 11:46 79 119/59 L 01/17/20 11:45 80 112/62 01/17/20 11:30 78 121/60 Intake/Output Intake/Output: Intake & Output 01/15/20 01/16/20 01/17/20 01/18/20 23:59 23:59 23:59 23:59 Intake Total 1480 480 550 340 Output Total 336 250 1941
--- NOTE | 2020-01-18 11:20 | PM.PNNEP ---
Progress Note: A&P Assessment and Plan (1) End stage renal disease: Code(s): N18.6 - End stage renal disease Status: Chronic Assessment and Plan: due to a combination of disease progression + PREET/ARF from presumed ATN suspect PREET/ARF led to further progression resulting in ESRD s/p tunneled HD catheter HD today to complete 3 day initiation follow electrolytes, volume status, and clearance outpatient dialysis arrangements in progress (2) Elevated LFTs: Code(s): R79.89 - Other specified abnormal findings of blood chemistry Status: Acute Assessment and Plan: presumed to be secondary to hypotension episode (shock liver) slowly improving Gastroenterology following (3) Anemia: Qualifiers: Anemia type: due to chronic kidney disease Qualified Code(s): N18.4 - Chronic kidney disease, stage 4 (severe); D63.1 - Anemia in chronic kidney disease Code(s): D64.9 - Anemia, unspecified Status: Chronic Assessment and Plan: probably on the basis of CKD follow trend of H/H evidence of iron deficiency by anemia labs - started IV venofer Epogen with HD (4) Essential (primary) hypertension: Code(s): I10 - Essential (primary) hypertension Status: Chronic Assessment and Plan: well controlled BP medications with parameters follow hemodynamics (5) Diabetes: Code(s): E11.9 - Type 2 diabetes mellitus without complications Status: Acute Assessment and Plan: issues with hypoglycemia on admission follow accuchecks Not opposed to discharge from renal perspective if otherwise medically stable and outpatient dialysis schedule finalized. Will continue to follow. Subjective Date/time seen: 01/18/20 11:20 Tolerating 3rd dialysis treatment in a row for initiation of dialysis at the time of my visit (seen on HD at ~ 11:00am); no apparent distress noted; feels reasonably well. Exam Narrative: Exam Narrative: General: WD/WN female in NAD Heart: normal S1 and S2; no rub Lungs: clear to auscultation Abdomen: soft, nontender, nondistended, positive bowel sounds Extremities: no cyanosis or clubbing; trace edema Skin: no nodules Objective Data Vital Signs Vital Signs: Vital Signs Temp Pulse Resp BP Pulse Ox 01/18/20 11:15 83 134/63 01/18/20 11:00 81 140/74 01/18/20 10:45 80 134/64 01/18/20 10:30 78 128/69 07/03/20 10:19 76 147/70 H 01/18/20 10:01 81 131/72 01/18/20 09:45 81 132/62 01/18/20 09:30 81 129/65 01/18/20 09:15 84 128/63 01/18/20 09:00 82 128/66 01/18/20 08:45 81 132/64 01/18/20 08:30 80 131/67 01/18/20 08:20 78 143/69 H 01/18/20 08:10 37.0 C 81 16 148/71 H 01/18/20 06:00 37.4 C 77 20 116/72 97 01/17/20 22:00 36.4 C 83 18 107/53 L 97 01/17/20 14:00 36.8 C 84 16 104/56 L 98 01/17/20 11:50 37.0 C 80 16 123/62 01/17/20 11:46 79 119/59 L 01/17/20 11:45 80 112/62 01/17/20 11:30 78 121/60 Intake/Output Intake/Output: Intake & Output 01/15/20 01/16/20 01/17/20 01/18/20 23:59 23:59 23:59 23:59 Intake Total 1480 480 550 340 Output Total 027 115 3579 Balance 785 -67 -284 340 Meds/Results Medications: Active Medications Generic Name Dose Route Start Last Admin Trade Name Freq PRN Reason Stop Dose Admin Amlodipine Besylate 2.5 mg 01/18/20 09:00 Norvasc PO DAILY ANGELIKA Aspirin 81 mg 01/11/20 09:00 01/17/20 12:34 Aspirin Ec PO 81 mg DAILY ANGELIKA Administration Carvedilol 25 mg 01/11/20 09:00 01/11/20 21:56 Coreg PO 25 mg Q12HR ANGELIKA Administration Dextrose 12.5 gm 01/11/20 06:35 Dextrose 50% Syringe IV PUSH PRN PRN Hypoglycemia Protocol Docusate Sodium 100 mg 01/13/20 10:11 Colace Capsule PO Q12H PRN Constipation Epoetin Giancarlo-epbx 10,000 units 01/16/20 17:00 01/17/20 11:18 Retac
--- NOTE | 2020-01-18 12:25 | PC.NURSE ---
Back from dialysis via bed.
[2020-01-18] MEDS: CHOLECALCIFEROL 1,000 UNIT TABLET 1000 UNITS PO (12:33)
[2020-01-18] MEDS: ASPIRIN 81 MG ENTERIC TABLET PO (12:33)
[2020-01-18] MEDS: PANTOPRAZOLE SODIUM IV 40 MG VIAL IV PUSH (12:33)
[2020-01-18 12:47] LABS: Glucose Point of Care 70 (65-105)
--- NOTE | 2020-01-18 15:22 | PM.DS ---
DS: Admitting Diagnosis Admitting Diagnosis Admitting Diagnosis: Acute cholecystitis DS: Discharge Diagnosis Discharge Diagnosis (1) ESRD on hemodialysis: Code(s): N18.6 - End stage renal disease; Z99.2 - Dependence on renal dialysis Status: Acute (2) Elevated LFTs: Code(s): R79.89 - Other specified abnormal findings of blood chemistry Status: Acute (3) Diabetes mellitus with hypoglycemia: Code(s): E11.649 - Type 2 diabetes mellitus with hypoglycemia without coma Status: Chronic (4) Essential (primary) hypertension: Code(s): I10 - Essential (primary) hypertension Status: Chronic (5) Dementia, unspecified, without behavioral disturbance: Qualifiers: Dementia type: unspecified type Qualified Code(s): F03.90 - Unspecified dementia without behavioral disturbance Code(s): F03.90 - Unspecified dementia without behavioral disturbance Status: Chronic (6) Anemia: Qualifiers: Anemia type: due to chronic kidney disease Qualified Code(s): N18.4 - Chronic kidney disease, stage 4 (severe); D63.1 - Anemia in chronic kidney disease Code(s): D64.9 - Anemia, unspecified Status: Chronic DS: Summary Hospital Course Reason for hospitalization: Weakness and hypoglycemia Hospital Course: Mrs. Luis is a 64 y.o. female with PMH significant for hypertension, dementia, CAD, CHFm COPD, anemia, GERD, and T2DM who presented to the ED for the evaluation of weakness and hypoglycemia. Initial workup revealed WBC 9,000, Hb 10.9, Hct 32.7, platelet count 172, sodium 132, potassium 4.6, chloride 108, CO2 15, BUN 60, Cr 7.6, glucose 134, calcium 7.3, AST 963, ALT 1019, ALP 130, total protein 5.0, and albumin 2.8. CXR revealed no acute findings. Head CT demonstrated evidence of an old lacunar infarct and chronic age related findings without any evidence of acute abnormality. CT and/pelvis was ordered due to the marked LFT elevation and revealed mild gallbladder distention. RUQ ultrasound was performed and revealed trace pericholecystic fluid without additional findings of acute cholecystitis. She was admitted to the hospitalist service for further evaluation and treatment. She was treated with gentle IV fluids for PREET. General surgery was consulted due to suspected acalculous cholecystitis. HIDA scan was normal with gallbladder ejection fraction of 48%. General surgery evaluated the patient and suspected that the LFT elevation was due to intrinsic hepatic pathology and recommended GI consult. GI felt that the LFT elevation was due to ischemic shock liver due to hypotension. Hepatitis serologies were negative. Her liver enzymes continued to improve with avoidance of hypotension and gentle IV fluids. Her renal functioned worsened and her acute kidney injury on chronic kidney disease was felt to be due to disease progression and ATN. Nephrology recommended the initiation of hemodialysis and the patient and her elected to proceed. She underwent right IJ tunneled hemodialysis catheter placement and began hemodialysis 01/17/20. She tolerated 3 hemodialysis sessions for initiation and was cleared by nephrology for discharge. Her blood pressures remained close to target without additional antihypertensives so her antihypertensives were held at discharge after discussion with nephrology. Nephrology will follow her BP closely while at hemodialysis and adjust her medication regimen accordingly. Her glimepiride was held as her blood sugars were well-controlled without any additional hypoglycemics. She was discharge din stable condition on the afternoon of 01/18/20. Status at Discharge Functional status at discharge: independent ambulation Overall status at discharge: patient is back to baseline Time Spent with Patient Time attestation: Total time spent providing and/or coordinating discharge services: 40 Exam Narrative: Exam Narrative: Vitals at presentation: Temp
== END 2020-01-18 16:00 | disposition home or self-care (01) | DRG 673 ==
LOC: ANHED 20:14 → ANH3MEDSUR 01-11 00:43
PROVIDERS: Emergency Medicine Emergency Medical Services; Internal Medicine Gastroenterology; Internal Medicine Nephrology; Physician Assistant; Surgery; Admitting Provider Internal Medicine; Emergency Provider Emergency Medicine; PCP Family Medicine; Visit Provider Physician Assistant
PROC: 0JH60XZ Insertion of Tunneled Vascular Access Device into Chest Subcutaneous Tissue and Fascia, Open Approach (ICD-10-PCS; CPT 36908; principal; 2020-01-16 12:30)
DX: N17.0 Acute kidney failure with tubular necrosis (principal); K72.00 Acute and subacute hepatic failure without coma; I13.2 Hypertensive heart and chronic kidney disease with heart failure and with stage 5 chronic kidney disease, or end stage renal disease; I50.22 Chronic systolic (congestive) heart failure; K81.0 Acute cholecystitis; N18.6 End stage renal disease; R74.0 Nonspecific elevation of levels of transaminase and lactic acid dehydrogenase [LDH]; E11.649 Type 2 diabetes mellitus with hypoglycemia without coma; E11.22 Type 2 diabetes mellitus with diabetic chronic kidney disease; D63.1 Anemia in chronic kidney disease; F03.90 Unspecified dementia, unspecified severity, without behavioral disturbance, psychotic disturbance, mood disturbance, and anxiety; I65.23 Occlusion and stenosis of bilateral carotid arteries; F17.210 Nicotine dependence, cigarettes, uncomplicated; I25.10 Atherosclerotic heart disease of native coronary artery without angina pectoris; E78.5 Hyperlipidemia, unspecified; K21.9 Gastro-esophageal reflux disease without esophagitis; J44.9 Chronic obstructive pulmonary disease, unspecified; Z95.5 Presence of coronary angioplasty implant and graft; Z95.1 Presence of aortocoronary bypass graft; Z79.82 Long term (current) use of aspirin; Z99.2 Dependence on renal dialysis
CPT/HCPCS: 36415; 51701; 70450; 71045; 74176; 76705; 76775; 77001; 78227; 80053; 80069; 80074; 80076; 81001; 81050; 82436; 82570; 82607; 82728; 82746; 83540; 83550; 83690; 83735; 84100; 84156; 84300; 84466; 85025; 85027; 85610; 85730; 85999; 86706; 87086; 87088; 96360; 99285; A9270; A9537; C1750; C9113; G0257; J0690; J0696; J1644; J1756; J2250; J2405; J2805; J3010; J7030; J7040; J7070; J7120; Q5106

== ENCOUNTER 2020-12-19 15:24 | Observation (INO) | payer OTHER, MEDICARE, SELFPAY ==
[2020-12-19] VITALS (40 sets, daily range): BP systolic 114–217; BP diastolic 59–102; PULSE 89–118; RESP 14–38; TEMP 36.6–37.1; O2SAT 89–99; BMI 20.8
--- NOTE | ~2020-12-19 | XR_ITS ---
EXAMINATION: [id number] EXAM DATE: 12/21/2020 12:08 INDICATION: Postthoracentesis chest x-ray. TECHNIQUE: Portable AP frontal chest x-ray was obtained. Comparison is made to prior examination from 06/06/2019. FINDINGS: Right-sided has moderate sized amount of pleural fluid. Interval partial reexpansion of the right lower lobe. Right middle lobe still completely consolidated. There is a right-sided double-lum en dialysis catheter. There are sternotomy wires. Indeterminate left midlung zone 1 cm nodule. Mild cardiomegaly. There are no osseous abnormalities id entified. Sternotomy wires are present without findings to suggest sternal dehiscence. No postprocedure apical pneumothorax. Correlate with chest CT also being obtained at this time. IMPRESSION: 1. Moderate right pleural effusion, interval decrease in size. 2. Partial reexpansion right lower lobe. 3. Consolidated right middle lobe. 4. Indeterminate left midlung zone nodule. Reviewed, dictated and finalized at location A.
--- NOTE | ~2020-12-19 | US_ITS ---
EXAMINATION: US thoracentesis EXAM DATE: 12/21/2020 12:33 INDICATION: Large right pleural effusion. TECHNIQUE: Informed consent was taken by nurse upstairs from patient's spouse for the procedure, alth ough patient was alert, oriented and seemed competent when she arrived. I explained the purpose of pr ocedure, procedure itself and she agreed to proceed. Timeout procedure performed. The skin was prepped and draped in sterile fashion. 1% lidocaine was used for local anesthesia. Under ultrasound guidance, a 5 Fr catheter with trochar was advanced into the right pleural effusion. Flui d was aspirated. The catheter was removed, and a dressing was applied. There were no immediate compli cations. Patient was sent for postprocedure chest x-ray. FINDINGS: Ultrasound images demonstrate a right pleural effusion adequate in size for performing thoracentesis. IMPRESSION: 1. Successful ultrasound-guided thoracentesis yielding 800 mL of ben fluid. Reviewed, dictated and finalized at location A.
--- NOTE | ~2020-12-19 | XR_ITS ---
XR chest 1V portable DATE: 12/19/2020 22:49 INDICATION: Cough. Coronary artery disease, COPD, congestive heart failure, hypertension. TECHNIQUE: Portable upright AP chest on 12/2020 at 2246 hours COMPARISON: 01/16/2020 portable AP chest at 1250 hours FINDINGS: There is a very large right pleural effusion occupying greater than 50% of the volume of th e right thorax with associated compressive right lung atelectasis, with minimal residual aeration in the upper third of the right lung primarily. No left pleural effusion. No pulmonary vascular congestion or pneumothorax. Status post sternotomy. Heart size is not optimally evaluated on AP projection because of magnificati on but is likely enlarged. There is an approximately 1 cm density overlying the left mid to lower lung which may indicate a pulm onary mass. Right dual lumen internal jugular central venous catheter tip overlies the right atrium. Status post sternotomy. Aortic arch calcification. IMPRESSION: Interval very large right pleural effusion with associated compressive right lung atelect asis Reviewed, dictated and finalized at location A. IMPRESSION: Interval very large right pleural effusion with associated compress catie right lung atelectasis
--- NOTE | ~2020-12-19 | CT_ITS ---
EXAMINATION: CT chest high resolution [facility] EXAM DATE: 12/21/2020 12:16 INDICATION: Right pleural effusion, to be done after thoracentesis. TECHNIQUE: Spiral CT of the chest without contrast. HRCT. Axial, coronal and sagittal images of the chest were reviewed. Coronal maximum intensity pixel images of chest reviewed. The dose-length prod uct (DLP) for this examination was 134.32 mGy-cm. The exposure was tailored according to patient siz e (auto mA exposure control), and iterative reconstruction (ASIR) was used as additional dose reducti on technique. There is no prior study for comparison. FINDINGS: No evidence of interstitial lung disease on the HRCT. There is moderate-sized right pleura l effusion. No evidence postprocedure pneumothorax. There is mild emphysema. Right middle lobe are bronchus appears occluded, cut off near the hilum. There is also right infrahil ar fullness suspicious for likely lymphadenopathy or and possibly infiltrative malignancy, region stacey suring about 2.3 cm. Post obstructive right middle lobe atelectasis. Overall appearance is most consi stent with primary lung cancer and associated pleural effusion (diagnostic thoracentesis was performe d). There were several pulmonary nodules including right lower lobe nodule measuring 1.4 cm, left lower l obe nodule measuring 1.1 cm, a left upper lobe nodule measuring 1.0 cm, another measuring 5 mm. There is mild emphysema. There is no pneumothorax. Heart normal in size. There are sternotomy wires, and cardiac/coronary surgical changes. Correlate with prior history. Double lumen dialysis catheter. Upper abdomen is unr emarkable. Short C7 cervical ribs. There is a mottled appearance to the T4 and L2 vertebral bodies, suspicious f or early osseous metastatic disease. IMPRESSION: 1. Findings most consistent with primary lung cancer in right infrahilar region, postobstructive rig ht middle lobe collapse, moderate-sized malignant pleural effusion. 2. Several pulmonary nodules likely metastatic disease. 3. Suspect early T4, L2 vertebral body metastatic disease. Reviewed, dictated and finalized at location A. IMPRESSION: 1. Findings most consistent with primary lung cancer in right infrahilar regio n, postobstructive right middle lobe collapse, moderate-sized malignant pleural effusion. 2. Several pulmonary nodules likely metastatic disease. 3. Suspect early T4, L2 vertebral body metastatic disease.
--- NOTE | 2020-12-19 15:35 | ECG_ITS ---
Measurements Intervals [place] Rate: 109 P: 28 CO: 149 QRS: 76 QRSD: 101 T: 120 QT: 323 QTc: 435 Interpretive Statements SINUS TACHYCARDIA INCOMPLETE RIGHT BUNDLE BRANCH BLOCK CONSIDER INFERIOR INFARCT, AGE INDETERMINATE BORDERLINE ST-T WAVE ABNORMALITY- LAT/HIGH LAT LEADS BASELINE ARTIFACT- V5 ABNORMAL ECG Electronically Signed On 12-19-2020 16:47:39 CDT by Zhen Henning D.O.
[2020-12-19 15:47] LABS: Basophils Percent Auto 0.2 % (0.2-1.2); Eosinophils Percent Auto 0.2 % (0-4.4); Hematocrit 32.8 % (37.0-47.0); Hemoglobin 10.5 g/dL (12.0-15.0); Immature Granulocyte Absolute 0.02 K/mm3 (0.00-0.031); Immature Granulocyte Percent A 0.2 % (0-0.5); Lymphocytes Absolute Auto 0.99 K/mm3 (0.9-3.2); Lymphocytes Percent Auto 11.9 % (18.3-44.2); Mean Corpuscular Hemoglobin 30.7 pg (26-34); Mean Corpuscular Volume 95.9 fl (80-100); Monocytes Absolute Auto 0.8 K/mm3 (0.1-0.6); Monocytes Percent Auto 9.4 % (2.6-8.5); Neutrophils Absolute Auto 6.5 K/mm3 (1.3-6.7); Neutrophils Percent Auto 78.1 % (45.5-73.1); Platelet Count Result 158 k/mm3 (150-375); Red Blood Count 3.42 M/mm3 (4.2-5.4); Red Cell Distribution Width 13.4 % (11.5-14.5); White Blood Count 8.3 K/mm3 (4.5-10.0)
--- NOTE | 2020-12-19 15:48 | ED.DIZZY ---
HPI - Dizziness General Chief Complaint: Syncope Stated Complaint: episode of weakness and pallor during dialysis Time Seen by Provider: 12/19/20 15:34 Source: patient and family Mode of arrival: EMS Limitations: no limitations History of Present Illness HPI Narrative: 65-year-old female Hemodialysis patient who does have a history of dementia Sent in by EMS because of a episode that occurred during her treatment today She is here accompanied by her son who did not go to the dialysis point with her today, and unfortunately the patient cannot very well characterize the nature of what happened to her She does recall that she may have a complaint of dizziness, she does not think that it was very bad or that it bothered her too much, she does not recall any kind of vertigo or feeling like she was going to faint Right now she feels fine, does not have any pain, palpitations, or dizziness Her son notes that about 10 days ago she was seen in the office by her PCP for a cough and was given antihistamines and PPIs with the idea that it was a postnasal drip or reflux causing it, they also got a requisition for an outpatient chest x-ray but have not had it done yet She does not have a fever or shortness of breath, no nausea or vomiting Related Data Home Medications Medication Instructions Recorded Confirmed aspirin 81 mg tablet,delayed 81 mg PO DAILY 06/06/19 12/03/20 release isosorbide mononitrate 30 mg 30 mg PO DAILY 06/06/19 12/03/20 tablet,extended release 24 hr rosuvastatin 40 mg tablet 40 mg PO DAILY 06/06/19 12/03/20 carvedilol 6.25 mg tablet 6.25 mg PO Q12H 12/03/20 12/03/20 cholecalciferol (vitamin D3) 25 1,000 unit PO BID cap 12/03/20 12/03/20 mcg (1,000 unit) capsule ezetimibe 10 mg tablet 10 mg PO DAILY 12/03/20 12/03/20 Allergies Allergy/AdvReac Type Severity Reaction Status Date / Time No Known Allergies Allergy Verified 12/03/20 15:20 Review of Systems Review of Systems: All systems reviewed & are unremarkable except as noted in HPI and below Constitutional: Constitutional: Reports no additional constitutional complaints, Denies chills, Denies fever(s), Denies headache(s) and Reports weakness Eyes: Eyes: Reports no additional eye complaints and Denies change in vision ENT: Denies headache(s) and Denies sore throat Cardiovascular: Cardiovascular: Denies chest pain, Denies rapid heart rate, Denies dyspnea and Denies slow heart rate Respiratory: Respiratory: Reports cough and Denies dyspnea Gastrointestinal: Gastrointestinal: Denies abdominal pain, Denies diarrhea and Denies vomiting Genitourinary: Genitourinary: Denies urinary frequency and Denies dysuria Musculoskeletal: Musculoskeletal: Denies deformity, Denies arthralgias, Denies joint swelling and Denies numbness Integumentary/Breasts: Skin/Breast: Denies rash and Denies wounds Neurologic: Denies headache(s), Denies focal weakness and Denies numbness Psychiatric: Psychiatric: Reports no additional psychiatric complaints Endocrine: Endocrine: Reports no additional endocrine complaints Hematologic/Lymphatic: Hematologic/Lymphatic: Reports no additional hematologic/lymphatic complaints Allergic/Immunologic: Allergic/Immunologic: Reports no additional allergic/immunologic complaints PMFSH Past Medical History Medical History Anemia Bilateral carotid artery stenosis CAD (coronary artery disease) 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
[2020-12-19 15:56] LABS: Anion Gap 8 mmol/L (8-16); Blood Urea Nitrogen 14 mg/dL (7-17); Calcium 8.5 mg/dL (8.4-10.2); Carbon Dioxide 30 mmol/L (22-30); Chloride 98 mmol/L (98-107); Estimated CRCL calculation 17 ml/min; Estimated Glomerular Filt Rate 21; Glucose 113 mg/dL (65-105); Potassium 3.8 mmol/L (3.4-5.0); Sodium 136 mmol/L (137-145)
--- NOTE | 2020-12-19 16:04 | PC.NURSE ---
called lab, talk to Yobani. added on Phos MG Trop 1 Baseline
[2020-12-19] MEDS: carvediloL 12.5 MG TABLET PO (16:06)
[2020-12-19 16:14] LABS: Magnesium 1.9 mg/dL (1.6-2.3); Phosphorus 2.8 mg/dL (2.5-4.5)
[2020-12-19 16:30] LABS: Troponin I 0.052 ng/mL (0.000-0.034)
[2020-12-19 19:51] LABS: Troponin I 0.356 ng/mL (0.000-0.034)
--- NOTE | 2020-12-19 20:20 | PC.NURSE ---
pt family member came out of room and stated stalin has dementia and is getting antsy, is there any way i can get her up and walk her a little bit? henok rn instructed he would talk to doctor to get update and be in there shortly. amrit pereira stated it was okay for patient to walk around in the room. this rn went to unhook pt from monitor.
[2020-12-19] MEDS: ASPIRIN 81 MG CHEWABLE TABLET 324 MG PO (21:56)
--- NOTE | 2020-12-19 22:50 | ADMGEN ---
This patient, Jaki Luis, was admitted to IMU Room 232-01. Patient/family oriented to hospital policies and general routines including ID bracelet, bed and alarms, visiting hours, pain management, procedures, bathroom and other care routines, personal items, smoking policy, room service/diet, and visiting hours. Information on how to activate the Rapid Response Team has been discussed. Patient/Family are encouraged to report perceived risks to care and to ask questions if they do not understand what they are told or what they should do.
--- NOTE | 2020-12-19 23:01 | PM.IMHP ---
H&P: HPI History of Present Illness Date/Time: 12/19/20 23:01 this is a 65-year-old female patient who has end-stage renal disease and is on dialysis Tuesday. She also has a history of coronary artery disease with the CABG and coronary stent. The patient has had poor memory since she had her CABG. The is at the bedside answering questions for her since she has a poor memory. And at the very end of her dialysis she had a near syncopal episode. Her stated he was not with her when this occurred she does not recall if she was dizzy or she had any chest pain or shortness of breath. She was feeling fine when she got to the emergency room. She does have a history of dementia. She has had no fever or chills. No chest pain or palpitations. The patient has been having a chronic cough and was given and his means and PPIs for possibility postnasal drainage versus gastroesophageal reflux disease. Her feels that this could be psychological and just coughs due to nervousness. Patient's EKG was read as sinus tachycardia incomplete right bundle-branch block consider inferior infarct age indeterminate. Borderline ST T wave abnormality which is similar to her EKG on 06/06/2019. Her H&H today is 10.5 and 32.8 Which is lower than the baseline. Patient's baseline troponin is 0.052. The 3 hour troponin was noted to be 0.356. The patient was given aspirin and Coreg. Blood pressure is elevated tonight 183/63. The patient is being admitted to observation to IMU on the date of service of 12/19/2020. Chief Complaint: Near syncopal episode Review of Systems Review of Systems: All systems reviewed & are unremarkable except as noted in HPI and below Constitutional: Constitutional: Reports as per HPI and Reports no additional constitutional complaints Eyes: Eyes: Reports as per HPI and Reports no additional eye complaints ENT: Reports system reviewed and no additional complaints, except as documented and Reports Normal hearing present Cardiovascular: Cardiovascular: Reports no additional cardiovascular complaints Respiratory: Respiratory: Reports no additional respiratory complaints and Reports no additional respiratory complaints Gastrointestinal: Gastrointestinal: Reports as per HPI and Reports no additional gastrointestinal complaints Musculoskeletal: Musculoskeletal: Reports no additional musculoskeletal complaints Integumentary/Breasts: Skin/Breast: Reports system reviewed and no additional complaints, except as docu and Reports as per HPI Neurologic: Reports system reviewed and no additional complaints, except as documented, Reports as per HPI and Reports Normal hearing present Psychiatric: Psychiatric: Reports no additional psychiatric complaints and Reports as per HPI Endocrine: Endocrine: Reports no additional endocrine complaints Hematologic/Lymphatic: Hematologic/Lymphatic: Reports no additional hematologic/lymphatic complaints Allergic/Immunologic: Allergic/Immunologic: Reports no additional allergic/immunologic complaints [facility] Past Medical History Medical History (Updated 12/19/20 @ 23:24 by Sravanthi Mercado NP) Anemia Bilateral carotid artery stenosis CAD (coronary artery disease) 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 UTI (urinary tract infection) Surgical History Surgical History (Updated 12/19/20 @ 23:09 by Sravanthi Mercado NP) History of breast biopsy (Unknown) History of cardiac catheterization September 2013 demonstrating moderate left kajal
[2020-12-19 23:39] LABS: Troponin I 0.334 ng/mL (0.000-0.034)
[2020-12-20] VITALS (20 sets, daily range): BP systolic 121–167; BP diastolic 58–89; PULSE 87–113; RESP 16–22; TEMP 36–36.6; O2SAT 91–98
--- NOTE | 2020-12-20 | ECHO_ITS ---
Patient Info Name: Jaki Luis Age: 65 years : 1955 Gender: Female Ht: 61 in Wt: 110 lbs BSA: 1.47 m2 HR: 93 bpm BP: 158 / 62 mmHg Heart Rhythm: Sinus Rhythm Technical Quality: Good Exam Date: 12/20/2020 7:55 AM Exam Location: [facility] Pulmonary Exam Room: 232 Patient Status: Inpatient Admit Date: 12/19/2020 Staff Ordering Physician: Sravanthi Mercado NP Folder Tier: Mariaelena Carmichael RDCS Attending Provider: Wendy Bernal MD Exam Type: CA echo doppler color flow Study Info Indications - large pleural effusion on HD MWF HX/O CAD CABG Complete two-dimensional, color flow and Doppler transthoracic echocardiogram is performed. Summary 1. Complete two-dimensional, color flow and Doppler transthoracic echocardiogram is performed. 2. Left ventricular systolic function is mildly reduced, estimated at 45-50%. 3. There is mildly increased left ventricular wall thickness. 4. There is trace aortic valve regurgitation. 5. There is mild tricuspid valve regurgitation. 6. Mild pulmonary hypertension, estimated pulmonary arterial systolic pressure is 48 mmHg. Left Ventricle Left ventricular chamber dimension is normal. Left ventricular systolic function is mildly reduced, estimated at 45-50%. There is mildly increased left ventricular wall thickness. Left ventricular septal wall motion is abnormal with septal motion related to pacing. The left ventricular diastolic function is grade I diastolic dysfunction. Right Ventricle Right ventricular chamber dimension is normal. Right ventricular systolic function is normal. Left Atria Left atrial chamber dimension is normal. Right Atria Right atrial chamber dimension is normal. Aortic Valve The aortic valve is trileaflet. There is no aortic valve sclerosis. There is no aortic valve stenosis. There is trace aortic valve regurgitation. Pulmonic Valve The pulmonic valve is normal. There is no pulmonic valve stenosis. There is no pulmonic regurgitation. Mitral Valve The mitral valve has normal leaflets. There is no mitral valve stenosis. There is no mitral valve regurgitation. Tricuspid Valve The tricuspid valve leaflets are normal. There is no significant tricuspid valve stenosis. There is mild tricuspid valve regurgitation. Mild pulmonary hypertension, estimated pulmonary arterial systolic pressure is 48 mmHg. Pericardium/Pleural The pericardium appears normal. There is no pericardial effusion. Inferior Vena Cava Normal inferior vena cava with >50% collapse upon inspiration consistent with normal right atrial pressure, 10 mmHg. Aorta The aortic root size at the sinus of Valsalva is normal. The prox ascending aorta size is normal. Left Ventricular Outflow Tract Name Value Normal LVOT 2D LVOT Diameter 2.0 cm LVOT Doppler LVOT Peak Gradient 4 mmHg LVOT Mean Gradient 2 mmHg LVOT VTI 22 cm LVOT VTI/AV VTI Ratio 0.9 LVOT Stroke Volume 65 ml LVOT CO
[2020-12-20] MEDS: FUROSEMIDE INJ 40 MG/4 ML VIAL 20 MG IV PUSH (00:21)
[2020-12-20] MEDS: IPRATROPIUM BR 0.02% INH SOLN 0.5 MG/2.5 ML VIAL INHALATION (00:23)
[2020-12-20] MEDS: ALBUTEROL SULFATE NEB 2.5 MG/0.5 ML INH 5 MG INHALATION (00:23)
[2020-12-20 05:32] LABS: Basophils Percent Auto 0.5 % (0.2-1.2); Eosinophils Percent Auto 0.3 % (0-4.4); Hematocrit 30.7 % (37.0-47.0); Hemoglobin 10.1 g/dL (12.0-15.0); Immature Granulocyte Absolute 0.01 K/mm3 (0.00-0.031); Immature Granulocyte Percent A 0.1 % (0-0.5); Immature Platelet Fraction Pct 3.4 % (0.9-11.2); Lymphocytes Absolute Auto 0.75 K/mm3 (0.9-3.2); Lymphocytes Percent Auto 8.7 % (18.3-44.2); Mean Corpuscular HGB Conc 32.9 g/dl (32-36); Mean Corpuscular Volume 94.2 fl (80-100); Mean Platelet Volume 10.6 fl (7.4-10.4); Monocytes Absolute Auto 0.7 K/mm3 (0.1-0.6); Monocytes Percent Auto 8.4 % (2.6-8.5); Platelet Count Result 166 k/mm3 (150-375); Red Blood Count 3.26 M/mm3 (4.2-5.4); Red Cell Distribution Width 13.2 % (11.5-14.5); White Blood Count 8.6 K/mm3 (4.5-10.0)
[2020-12-20 05:53] LABS: Alanine Aminotransferase 48 U/L (4-35); Albumin Level 3.3 g/dL (3.5-5.1); Alkaline Phosphatase 82 U/L (38-126); Anion Gap 11 mmol/L (8-16); Aspartate Amino Transferase 49 U/L (14-36); Bilirubin,Total 0.6 mg/dL (0.2-1.3); Blood Urea Nitrogen 23 mg/dL (7-17); Calcium 8.9 mg/dL (8.4-10.2); Carbon Dioxide 24 mmol/L (22-30); Chloride 100 mmol/L (98-107); Estimated CRCL calculation 11 ml/min; Estimated Glomerular Filt Rate 13; Glucose 107 mg/dL (65-105); Lactate Dehydrogenase 835 U/L (313-618); Potassium 4.5 mmol/L (3.4-5.0); Sodium 135 mmol/L (137-145)
[2020-12-20 06:08] LABS: Troponin I 0.207 ng/mL (0.000-0.034)
[2020-12-20 08:07] LABS: Prothrombin Time 13.8 Seconds (11.1-14.7)
[2020-12-20 08:08] LABS: Partial Thromboplastin Time 26.4 SECONDS (22.3-36.8)
[2020-12-20 08:41] LABS: Glucose Point of Care 114 mg/dl (65-105)
--- NOTE | 2020-12-20 08:47 | PM.IMPN ---
Progress Note: A&P Assessment and Plan (1) Severe hypertension: Code(s): I10 - Essential (primary) hypertension Status: Acute Assessment and Plan: stable. continue coreg. hydralazine prn. (2) Elevated troponin: Code(s): R77.8 - Other specified abnormalities of plasma proteins Status: Acute Assessment and Plan: Had a baseline troponin of 0.052 and the 3 hour troponin was listed as 0.3 56. The 6 hour troponin is elevated as well. no chest pain. hx of cabg and coronary stents. has underling renal disease. will consult cardiology for evaluation. (3) Near syncope: Code(s): R55 - Syncope and collapse Status: Acute Assessment and Plan: The patient was at the end of her dialysis when she nearly passed out. The patient is being placed in IMU and I did consult Nephrology. The patient has had a carotid Doppler study performed on 05/25/2019 which shows greater than or equal to 70% stenosis in the right and left internal carotid arteries and I am not sure if she is being followed outpatient by vascular or cardiology. will watch for any recurrence of this. does have elevated troponin. ?PE. (4) Chronic kidney disease: Code(s): N18.9 - Chronic kidney disease, unspecified Status: Acute Assessment and Plan: The patient has a temporary dialysis catheter to the right upper chest and has been having dialysis on Tuesday for at at least the last year and half. left arm fistula has not matured yet to be used for diaalysis per pateint. (5) Large pleural effusion: Code(s): J90 - Pleural effusion, not elsewhere classified Status: Acute Assessment and Plan: thoractentesis ordered. pleural fluid analysis will get ct chest post thoracentesis for evaluation. cxr with possiblity of lung mass. will consult pulmoanry. albuterol prn. (6) ESRD on hemodialysis: Code(s): N18.6 - End stage renal disease; Z99.2 - Dependence on renal dialysis Status: Acute Assessment and Plan: Tuesday. enphrology on board. (7) Diabetes mellitus with hypoglycemia: Code(s): E11.649 - Type 2 diabetes mellitus with hypoglycemia without coma Status: Chronic Assessment and Plan: Accu-Cheks AC and HS. Check A1c. Continue with her oral medication. (8) GERD without esophagitis: Code(s): K21.9 - Gastro-esophageal reflux disease without esophagitis Status: Acute Assessment and Plan: The patient is on Pepcid. (9) Chronic systolic congestive heart failure, NYHA class 2: Code(s): I50.22 - Chronic systolic (congestive) heart failure Status: Acute Assessment and Plan: echo. (10) Dementia, unspecified, without behavioral disturbance: Qualifiers: Dementia type: unspecified type Qualified Code(s): F03.90 - Unspecified dementia without behavioral disturbance Code(s): F03.90 - Unspecified dementia without behavioral disturbance Status: Chronic Assessment and Plan: The patient is very forgetful and the is answering the questions for her. (11) DVT prophylaxis: Code(s): Z29.9 - Encounter for prophylactic measures, unspecified Status: Acute Assessment and Plan: start heparin sq after thoracenteiss today Subjective Date/time seen: 12/20/20 08:47 Interval history: at bedside, she had near collapse ysterday, on and off cough for few montsh now. sob on exeriont. patient wtih dementia not able to give a lot of history. no fever, chills. no leg swelling. compliant with dialysis. Review of Systems Review of Systems: All systems reviewed & are unremarkable except as noted in HPI and below Constitutional: Constitutional: Reports as per HPI and Reports no additional constitutional complaints Eyes: Eyes: Reports as per HPI and Reports no additional eye complaints ENT: Reports system reviewed and no additional complaint
[2020-12-20] MEDS: CHOLECALCIFEROL 1,000 UNITS TABLET 1000 UNITS PO ×2 (10:54→18:01)
[2020-12-20] MEDS: EZETIMIBE 10 MG TABLET PO (10:54)
[2020-12-20] MEDS: carvediloL 6.25 MG TABLET PO ×2 (10:55→21:17)
[2020-12-20] MEDS: ROSUVASTATIN 10 MG TABLET 40 MG PO (10:55)
[2020-12-20] MEDS: GLIMEPIRIDE 1 MG TABLET PO (10:55)
[2020-12-20] MEDS: ISOSORBIDE MONONITRATE 30 MG TAB.ER.24H PO (10:55)
[2020-12-20] MEDS: FAMOTIDINE 20 MG TABLET PO ×2 (10:55→18:01)
--- NOTE | 2020-12-20 11:00 | PM.CNNEP ---
Assessment and Plan Assessment and plan (1) End stage renal disease: Code(s): N18.6 - End stage renal disease Status: Chronic Assessment and Plan: plan next HD treatment on Tuesday and continue // schedule follow electrolytes, volume status, and clearance (2) Near syncope: Code(s): R55 - Syncope and collapse Status: Acute Assessment and Plan: evaluation in progress Cardiology consulted follow symptoms (3) Large pleural effusion: Code(s): J90 - Pleural effusion, not elsewhere classified Status: Acute Assessment and Plan: as noted by admission imaging plan thoracentesis and CT scan of chest for further evaluation respiratory status seems stable (4) Severe hypertension: Code(s): I10 - Essential (primary) hypertension Status: Chronic Assessment and Plan: quite elevated on admission better control at this itme follow trend of hymeodynamics (5) Diabetes: Code(s): E11.9 - Type 2 diabetes mellitus without complications Status: Chronic Assessment and Plan: follow accuchecks glycemic control Thank you for allowing me to participate in the care this patient I will continue to follow patient with you while she remains hospitalized make further recommendations during her hospital course. History of Present Illness Reason for Consult Consult date: 12/20/20 Reason for consult: end stage renal disease Chief Complaint Chief complaint: severe HTN,near syncope,elevated troponin,dementia History of Present Illness Narrative: Almost all the information I have obtained is from review of the electronic medical records and discussion with the nurses involved in the patient's care as getting a complete and concise history from the patient is quite limited due to her dementia. The patient is a 65 year old female with a past medical history as outlined below who presented to the [facility] ER due to near syncope episode toward the end of her dialysis treatment yesterday. The patient was apparently in her usual state of health when she presented to her regularly scheduled dialysis treatment yesterday afternoon. She did well during most of the treatment but then in apparently the last 10 min of it, she apparently almost passed out. From my discussion with her outpatient dialysis unit, she did not give any specific complaints before, during, or after the event. However, according to her outpatient dialysis nurses, the patient very rarely ever has many complaints of anything in general. They report the patient has been compliant with her dialysis treatments and is able to achieve her dry weight fairly easily as she is not a significant gain her in terms of fluid between dialysis treatments. In any case, when this near syncopal episode occurred, EMS was called and she was subsequently transferred to the emergency room for further evaluation. Workup and evaluation in the emergency room demonstrated the patient to be hemodynamically stable (she was actually hypertensive) and had no acute complaints on arrival. Routine blood test demonstrated labs consistent with her known history of end-stage renal disease but she did have a mildly elevated troponin. Given her complex medical history in conjunction with the constellation of events that occurred that led to her presentation to the emergency room, she was admitted for further evaluation and therapy. Renal consultation was requested due to her end-stage renal disease. The patient normally dialyzes at [facility] under the care of Dr. Scott Carr. She has been on dialysis for about a year now and she is somewhat familiar to me as I took care of her during her hospitalization here at [facility] about a year ago where she was initiated on renal replacement therapy/dialysis. As already mentioned above, she is compliant with her dialysis treatments and maintains
[2020-12-20 12:27] LABS: Glucose Point of Care 121 mg/dl (65-105)
--- NOTE | 2020-12-20 13:00 | PM.CNCAR ---
Assessment and Plan Assessment and plan (1) Elevated troponin: Code(s): R77.8 - Other specified abnormalities of plasma proteins Status: Acute Assessment and Plan: With known history of coronary disease, her troponin is slightly elevated, she does have significant risk factors for heart disease in his she has known disease, definitely she is higher risk than normal with the elevation of troponin however does not indicate the presence of acute coronary syndrome in absence of active chest pain, she does have history of known ischemic cardiomyopathy, she needs closer monitoring. Will get echocardiogram to evaluate current status of left ventricular systolic function, will follow-up troponin, in case she had significant changes of her troponin level will consider further investigation such as cardiac catheterization however his stays the same level then will continue with maximum medical treatment, especially with her other comorbidities (2) End stage renal disease: Code(s): N18.6 - End stage renal disease Status: Acute (3) Large pleural effusion: Code(s): J90 - Pleural effusion, not elsewhere classified Status: Acute Assessment and Plan: Likely is due to congestive heart failure, with volume overload, she is on hemodialysis, consider increasing her output to improve her fluid status (4) CAD (coronary artery disease): Qualifiers: Coronary Disease-Associated Artery/Lesion type: [place] artery [place] vs. transplanted heart: [place] heart Associated angina: with stable angina Qualified Code(s): I25.118 - Atherosclerotic heart disease of [place] coronary artery with other forms of angina pectoris Code(s): I25.10 - Atherosclerotic heart disease of [place] coronary artery without angina pectoris Status: Acute Assessment and Plan: Status post coronary bypass surgery, status post left main to LAD stent, currently no active chest pain continue with aspirin, Coreg and isosorbide (5) Severe hypertension: Code(s): I10 - Essential (primary) hypertension Status: Acute (6) ESRD on hemodialysis: Code(s): N18.6 - End stage renal disease; Z99.2 - Dependence on renal dialysis Status: Acute (7) Diabetes mellitus with hypoglycemia: Code(s): E11.649 - Type 2 diabetes mellitus with hypoglycemia without coma Status: Chronic (8) Dementia, unspecified, without behavioral disturbance: Qualifiers: Dementia type: unspecified type Qualified Code(s): F03.90 - Unspecified dementia without behavioral disturbance Code(s): F03.90 - Unspecified dementia without behavioral disturbance Status: Chronic Additional Plan Thank you for allowing me to participate in this patient's care, I will be following up with you. Please do not hesitate to call me for any other inquiry History of Present Illness History of Present Illness Consult date/time: 12/20/20 13:00 65 years old lady with history of known coronary disease status post coronary bypass surgery, and history of stent placement, came to the hospital because of change in mental status weakness, and confusion. Noted to have respiratory distress and her x-ray showed pleural effusion. Upon further investigation she had cardiac troponin which was borderline elevated with a flat pattern. Denies any chest pain, she had history of known coronary disease she sees air moving technician in [place], but she is not very accurate on her details of what has been done recently to her. Currently has no active chest pain but she has mild shortness breath mild orthopnea. Her troponin 0.27, her EKG showed normal sinus rhythm with left ventricular hypertrophy with secondary ST-T changes. Reason For Visit: severe HTN,near syncope,elevated troponin,dementia Review of Systems Review of Systems: ROS unobtainable: Yes unobtainable due to mental status Cardiovascular: Cardiovascular: Reports as per HPI Respiratory: Res
[2020-12-20 13:41] LABS: Cholesterol 97 mg/dL (0-200); HDL Direct 36 mg/dL; Triglycerides 145 mg/dL (<150)
[2020-12-20 13:51] LABS: LDL Cholesterol Direct 35 mg/dL
[2020-12-20 16:52] LABS: Glucose Point of Care 91 mg/dl (65-105)
[2020-12-20 21:01] LABS: Glucose Point of Care 230 mg/dl (65-105)
[2020-12-20] MEDS: INSULIN ASPART (*BKC) 100 UNITS/ML SUB-Q (21:19)
[2020-12-21] VITALS (10 sets, daily range): BP systolic 136–189; BP diastolic 70–80; PULSE 87–115; RESP 16–30; TEMP 36.1–36.4; O2SAT 93–96
[2020-12-21 05:45] LABS: Partial Thromboplastin Time 20.5 SECONDS (22.3-36.8); Prothrombin Time 14.1 Seconds (11.1-14.7)
[2020-12-21 08:45] LABS: Glucose Point of Care 182 mg/dl (65-105)
--- NOTE | 2020-12-21 11:41 | PM.CNCAR ---
Assessment and Plan Assessment and plan (1) Near syncope: Code(s): R55 - Syncope and collapse Status: Acute Assessment and Plan: Unclear etiology of episode. With rise of trop may have been an ischemic event, but no CP or EKG changes ACS unlikely. No arrhythmias on Tele BP was high, not low. Known CAD w/ ONCOLOGY PHARMACIST OM and RCA. No recurrent sx and no recent angina. No further evaluation needed. . (2) Elevated troponin: Code(s): R77.8 - Other specified abnormalities of plasma proteins Status: Acute Assessment and Plan: As above. . (3) Large pleural effusion: Code(s): J90 - Pleural effusion, not elsewhere classified Status: Acute Assessment and Plan: Unfortunately most likely a malignant effusion. . (4) CAD in [place] artery: Code(s): I25.10 - Atherosclerotic heart disease of [place] coronary artery without angina pectoris Status: Acute Assessment and Plan: CAD, h/o CABG, h/o stent to MUÑOZ/LAD, ONCOLOGY PHARMACIST RCA and OM, no angina. Cont medical therapy. - (5) Chronic systolic congestive heart failure, NYHA class 2: Code(s): I50.22 - Chronic systolic (congestive) heart failure Status: Acute Assessment and Plan: STble, no edema. . (6) Carotid disease, bilateral: Code(s): I77.9 - Disorder of arteries and arterioles, unspecified Status: Acute Assessment and Plan: Significant dz by US 2017. Declined further evaluation at time of office visit 08/2020. . History of Present Illness History of Present Illness Consult date/time: 12/21/20 11:42 Requesting physician: Sravanthi Mercado NP Reason For Visit: severe HTN,near syncope,elevated troponin,dementia Narrative: Sherie Andrade is a 65-year-old white female whom I have followed for several years for coronary artery disease. She was admitted with a near-syncopal episode on dialysis and elevated troponins, for which were asked to see her in consultation. EMS run report from 12/19/2020 shows the patient was finishing dialysis and had sudden onset of weakness and pallor, with a near syncopal event. There was no chest discomfort. On their arrival her blood pressure was 206/94 with a heart rate of 110, O2 sat 97%. Her troponins were: 0.052, 0.356, 0.334 and 0.207. Chest x-ray showed a large right pleural effusion and a CT scan with thoracentesis was done earlier (right hilar mass). notes the patient has had a nocturnal cough, PND and orthopnea recently, more fatigued than usual for 2 months but no angina, chest pain or nitroglycerin use. Blood pressure has been a little high. The patient has a history of CAD with a non-STEMI and CABG x2 in 2013. She had a STEMI and a stent to the MUÑOZ/Left anterior descending anastomosis in October 2013. The small RCA and OM1 are chronically occluded. She has diabetes and chronic kidney disease followed by Dr. Carr on dialysis since 2019. She has carotid disease, history of GI bleeding on Xarelto and early-onset dementia. I last saw the patient August 2020; patient had stable angina with rare angina even on dialysis. Class 2 CHF symptoms with an EF of 46% 2415. Declined re-evaluating her carotid disease with a carotid ultrasound. BP was not at goal. Cholesterol was at goal with an LDL of 32. Review of Systems Review of Systems: Narrative: Review of systems was obtained from the patient and since she has dementia. Constitutional: Constitutional: Reports fatigue, Reports lethargy and Reports weakness Eyes: Eyes: Reports no additional eye complaints ENT: Denies epistaxis Cardiovascular: Cardiovascular: Denies chest pain, Denies pedal edema, Denies leg edema, Denies lightheadedness and Denies palpitations Respiratory: Respiratory: Reports cough (for 2 months), Denies hemoptysis, Reports dyspnea, Reports dyspnea on exertion and Reports wheezing Comments: Nocturnal wheezing for two months. CAn's walk far w/o CHASE. Gastrointesti
[2020-12-21 12:48] LABS: pH Pleural Fluid 7.353 (7.210-7.500)
[2020-12-21] MEDS: ROSUVASTATIN 10 MG TABLET 40 MG PO (13:04)
[2020-12-21] MEDS: FAMOTIDINE 20 MG TABLET PO (13:05)
[2020-12-21] MEDS: carvediloL 6.25 MG TABLET PO (13:05)
[2020-12-21] MEDS: CHOLECALCIFEROL 1,000 UNITS TABLET 1000 UNITS PO (13:05)
[2020-12-21] MEDS: GLIMEPIRIDE 1 MG TABLET PO (13:05)
[2020-12-21] MEDS: EZETIMIBE 10 MG TABLET PO (13:06)
[2020-12-21] MEDS: ISOSORBIDE MONONITRATE 30 MG TAB.ER.24H PO (13:06)
[2020-12-21 13:14] LABS: Glucose Point of Care 190 mg/dl (65-105)
--- NOTE | 2020-12-21 13:54 | PM.PNNEP ---
Progress Note: A&P Assessment and Plan (1) End stage renal disease: Code(s): N18.6 - End stage renal disease Status: Chronic Assessment and Plan: plan next HD treatment on Tuesday and continue // schedule follow electrolytes, volume status, and clearance (2) Near syncope: Code(s): R55 - Syncope and collapse Status: Acute Assessment and Plan: evaluation in progress Cardiology consulted follow symptoms (3) Large pleural effusion: Code(s): J90 - Pleural effusion, not elsewhere classified Status: Acute Assessment and Plan: as noted by admission imaging s/p thoracentesis - follow-up on pleural fluid analysis CT chest results reviewed -- concerns for likely metastatic lung cancer - follow-up on pleural fluid cytology respiratory status seems stable (4) Severe hypertension: Code(s): I10 - Essential (primary) hypertension Status: Chronic Assessment and Plan: quite elevated on admission better control at this itme follow trend of hemodynamics (5) Diabetes: Code(s): E11.9 - Type 2 diabetes mellitus without complications Status: Chronic Assessment and Plan: follow accuchecks glycemic control Will continue to follow. Subjective Date/time seen: 12/21/20 13:54 S/P diagnostic/therapeutic right thoracentesis earlier today and tolerated reasonably well; CT scan of chest also done with concerning results noted; no apparent distress noted at this time Exam Narrative: Exam Narrative: General: WD/WN female in NAD Heart: normal S1 and S2; no rub Lungs: clear but decreased at right base Abdomen: soft, nontender, nondistended, positive bowel sounds Extremities: no cyanosis or clubbing; no edema Skin: warm and dry Objective Data Vital Signs Vital Signs: Vital Signs Temp Pulse Resp BP Pulse Ox 12/21/20 12:32 114 H 30 H 147/71 H 95 12/21/20 12:00 36.1 C L 115 H 22 H 145/70 H 96 12/21/20 10:00 96 12/21/20 08:00 36.4 C L 101 H 20 149/76 H 94 12/21/20 06:00 91 12/21/20 04:00 36.1 C L 87 16 189/77 H 95 12/21/20 02:00 88 12/21/20 00:00 89 12/20/20 23:59 36.1 C L 87 16 148/58 H 91 12/20/20 22:00 97 12/20/20 21:17 101 H 12/20/20 20:01 101 H 18 93 12/20/20 20:00 36.2 C L 104 H 16 153/78 H 95 12/20/20 18:00 109 H 12/20/20 16:00 36.0 C L 113 H 22 H 167/89 H 91 Intake/Output Intake/Output: Intake & Output 12/18/20 12/19/20 12/20/20 12/21/20 23:59 23:59 23:59 23:59 Intake Total 580 340 Output Total 350 1000 Balance 230 -660 Meds/Results Medications: Active Medications Generic Name Dose Route Start Last Admin Trade Name Freq PRN Reason Stop Dose Admin Acetaminophen 650 mg 12/19/20 21:47 Acetaminophen 325 Mg Tablet PO Q4H PRN Mild Pain (1-3) or Fever Albuterol 2 puff 12/19/20 23:11 Albuterol Sulfate (*Sp) Aerosol 1 Puff INHALATION Q6HRT PRN Shortness Of Breath Aspirin 81 mg 12/20/20 09:00 12/21/20 10:36 Aspirin 81 Mg Enteric Tablet PO Not Given DAILY ANGELIKA Carvedilol 6.25 mg 12/20/20 09:00 12/21/20 13:05 Carvedilol 6.25 Mg Tablet PO 6.25 mg Q12HR ANGELIKA Administration Dextrose 12.5 gm 12/19/20 23:08 Dextrose 50% 25 Gm/50 Ml Syringe IV PUSH PRN PRN Hypoglycemia Protocol Dextrose 12.5 gm 12/20/20 21:08 Dextrose 50% 25 Gm/50 Ml Syringe IV PUSH PRN PRN Hypoglycemia Protocol Ezetimibe 10 mg 12/20/20 09:00 12/21/20 13:06 Ezetimibe 10 Mg Tablet PO 10 mg DAILY ANGELIKA Administration Famotidine 20 mg 12/20/20 09:00 12/21/20 13:05 Famotidine 20 Mg Tablet PO 20 mg BID ANGELIKA Administration Glimepiride 1 mg 12/20/20 08:00 12/21/20 13:05 Glimepiride 1 Mg Tablet PO 1 mg DAILY@0800 ANGELIKA Administration Glucagon 1 mg 12/19/20 23:08 Glucagon For Inj 1 Mg Vial IM [facility]
--- NOTE | 2020-12-21 14:42 | PM.IMPN ---
Subjective Date/time seen: 12/21/20 14:42 Objective Data Vital Signs Vital Signs: Vital Signs - 24 hr 12/20/20 16:00 12/20/20 18:00 12/20/20 20:00 Temperature 96.8 F L 97.1 F L Pulse Rate 113 H 109 H 104 H Respiratory Rate 22 H 16 Blood Pressure 167/89 H 153/78 H Pulse Oximetry 91 95 12/20/20 20:01 12/20/20 21:17 12/20/20 22:00 Temperature Pulse Rate 101 H 101 H 97 Respiratory Rate 18 Blood Pressure Pulse Oximetry 93 12/20/20 23:59 12/21/20 00:00 12/21/20 02:00 Temperature 97 F L Pulse Rate 87 89 88 Respiratory Rate 16 Blood Pressure 148/58 H Pulse Oximetry 91 12/21/20 04:00 12/21/20 06:00 12/21/20 08:00 Temperature 96.9 F L 97.5 F L Pulse Rate 87 91 101 H Respiratory Rate 16 20 Blood Pressure 189/77 H 149/76 H Pulse Oximetry 95 94 12/21/20 10:00 12/21/20 12:00 12/21/20 12:32 Temperature 97 F L Pulse Rate 96 99 114 H Respiratory Rate 22 H 30 H Blood Pressure 145/70 H 147/71 H Pulse Oximetry 96 95 Intake/Output Intake/Output: Intake & Output 12/18/20 12/19/20 12/20/20 12/21/20 23:59 23:59 23:59 23:59 Intake Total 580 340 Output Total 350 1000 Balance 230 -660 Meds/Results Medications: Active Medications Generic Name Dose Route Start Last Admin Trade Name Freq PRN Reason Stop Dose Admin Acetaminophen 650 mg 12/19/20 21:47 Acetaminophen 325 Mg Tablet PO Q4H PRN Mild Pain (1-3) or Fever Albuterol 2 puff 12/19/20 23:11 Albuterol Sulfate (*Sp) Aerosol 1 Puff INHALATION Q6HRT PRN Shortness Of Breath Aspirin 81 mg 12/20/20 09:00 12/21/20 10:36 Aspirin 81 Mg Enteric Tablet PO Not Given DAILY ANGELIKA Carvedilol 6.25 mg 12/20/20 09:00 12/21/20 13:05 Carvedilol 6.25 Mg Tablet PO 6.25 mg Q12HR ANGELIKA Administration Dextrose 12.5 gm 12/19/20 23:08 Dextrose 50% 25 Gm/50 Ml Syringe IV PUSH PRN PRN Hypoglycemia Protocol Dextrose 12.5 gm 12/20/20 21:08 Dextrose 50% 25 Gm/50 Ml Syringe IV PUSH PRN PRN Hypoglycemia Protocol Ezetimibe 10 mg 12/20/20 09:00 12/21/20 13:06 Ezetimibe 10 Mg Tablet PO 10 mg DAILY ANGELIKA Administration Famotidine 20 mg 12/20/20 09:00 12/21/20 13:05 Famotidine 20 Mg Tablet PO 20 mg BID ANGELIKA Administration Glimepiride 1 mg 12/20/20 08:00 12/21/20 13:05 Glimepiride 1 Mg Tablet PO 1 mg DAILY@0800 ANGELIKA Administration Glucagon 1 mg 12/19/20 23:08 Glucagon For Inj 1 Mg Vial IM PRN PRN Hypoglycemia Protocol Glucagon 1 mg 12/20/20 21:08 Glucagon For Inj 1 Mg Vial IM PRN PRN Hypoglycemia Protocol Glucose 15 gm 12/19/20 23:08 Glucose Oral Gel 15 Gm Of Glucse In 37.5 Gm Tube PO PRN PRN Hypoglycemia Protocol Glucose 15 gm 12/20/20 21:08 Glucose Oral Gel 15 Gm Of Glucse In 37.5 Gm Tube PO PRN PRN Hypoglycemia Protocol Hydralazine HCl 10 mg 12/19/20 23:32 Hydralazine Hcl 20 Mg/Ml Vial IV PUSH Q8H PRN Blood Pressure - High Dextrose 1,000 mls @ 100 mls/hr 12/19/20 23:08 Dextrose 5% 1,000 Ml IVPB PRN PRN Hypoglycemia Protocol Dextrose 1,000 mls @ 100 mls/hr 12/20/20 21:08 Dextrose 5% 1,000 Ml IVPB PRN PRN Hypoglycemia Protocol Insulin Aspart 3 - 6 units 12/21/20 08:00 12/21/20 13:09 Insulin Aspart (*Bkc) 100 Units/Ml SUB-Q Not Given TIDWM ANGELIKA Protocol Isosorbide Mononitrate 30 mg 12/20/20 09:00 12/21/20 13:06 Isosorbide Mononitrate 30 Mg Tab.Er.24h PO 30 mg DAILY ANGELIKA Administration Nitroglycerin 0.4 mg 12/19/20 21:47 Nitroglycerin Sl 0.4 Mg Tablet SUBLINGUAL Q5MIN PRN Chest Pain Rosuvastatin Calcium 40 mg 12/20/20 09:00 12/21/20 13:04 Rosuvastatin 10 Mg Tablet PO 40 mg DAILY ANGELIKA Administration Vitamin D 1,000 units 12/20/20 09:00 12/21/20 13:05 Cholecalciferol 1,000 Units Tablet PO 1,000 units BID ANGELIKA A
[2020-12-21 15:14] LABS: Appearance Pleural Fluid Cloudy (Clear); Color Pleural Fluid Red (Colorless); Pleural fluid source Pleural fluid
[2020-12-21 15:15] LABS: Lymphocytes Pleural Fluid 24 %; Macrophages Pleural Fluid 1 %; Mesothelial Cells Pleural Flui 1 %; Monocytes Pleural Fluid 45 %; Neutrophils Pleural Fluid 29 % (0-25)
[2020-12-21 15:16] LABS: Other Cells Pleural Fluid 0 %
--- NOTE | 2020-12-21 17:18 | PM.DS ---
DS: Admitting Diagnosis Admitting Diagnosis Admitting Diagnosis: (1) Severe hypertension: Code(s): I10 - Essential (primary) hypertension Status: Acute Assessment and Plan: Continue with patient's Coreg. The patient recently was started on antihistamines which could recent blood pressure is well. I will do some p.r.n. hydralazine as well. The patient has dialysis on Tuesday. She had dialysis today but had a near syncopal episode at the end. Her blood pressure was found to be elevated. The patient was given a dose of Coreg. (2) Elevated troponin: Code(s): R77.8 - Other specified abnormalities of plasma proteins Status: Acute Assessment and Plan: Had a baseline troponin of 0.052 and the 3 hour troponin was listed as 0.3 56. The 6 hour troponin is still pending. The patient does not have any complaints of chest pain. However she has a history of having a CABG and coronary artery stents in the past. (3) Near syncope: Code(s): R55 - Syncope and collapse Status: Acute Assessment and Plan: The patient was at the end of her dialysis when she nearly passed out. The patient is being placed in IMU and I did consult Nephrology. The patient has had a carotid Doppler study performed on 05/25/2019 which shows greater than or equal to 70% stenosis in the right and left internal carotid arteries and I am not sure if she is being followed outpatient by vascular or cardiology. (4) Chronic kidney disease: Code(s): N18.9 - Chronic kidney disease, unspecified Status: Acute Assessment and Plan: The patient has a temporary dialysis catheter to the right upper chest and has been having dialysis on Tuesday for at at least the last year and half. (5) Large pleural effusion: Code(s): J90 - Pleural effusion, not elsewhere classified Status: Acute Assessment and Plan: I did consult Nephrology and I ordered for thoracentesis for tomorrow as the patient has a large right pleural effusion. The patient has been having a cough for the last couple months. I ordered cultures and cytology as well. The patient is a smoker and has some expiratory wheezes. I ordered an echo as well. (6) ESRD on hemodialysis: Code(s): N18.6 - End stage renal disease; Z99.2 - Dependence on renal dialysis Status: Acute Assessment and Plan: Tuesday I did consult Nephrology (7) Diabetes mellitus with hypoglycemia: Code(s): E11.649 - Type 2 diabetes mellitus with hypoglycemia without coma Status: Chronic Assessment and Plan: Accu-Cheks AC and HS. Check A1c. Continue with her oral medication. (8) GERD without esophagitis: Code(s): K21.9 - Gastro-esophageal reflux disease without esophagitis Status: Acute Assessment and Plan: The patient is on Pepcid. (9) Chronic systolic congestive heart failure, NYHA class 2: Code(s): I50.22 - Chronic systolic (congestive) heart failure Status: Acute Assessment and Plan: I did order an echo for tomorrow. (10) Dementia, unspecified, without behavioral disturbance: Qualifiers: Dementia type: unspecified type Qualified Code(s): F03.90 - Unspecified dementia without behavioral disturbance Code(s): F03.90 - Unspecified dementia without behavioral disturbance Status: Chronic Assessment and Plan: The patient is very forgetful and the is answering the questions for her DS: Discharge Diagnosis Discharge Diagnosis (1) Carotid disease, bilateral: Code(s): I77.9 - Disorder of arteries and arterioles, unspecified Status: Acute (2) Diabetes: Code(s): E11.9 - Type 2 diabetes mellitus without complications Status: Chronic (3) End stage renal disease: Code(s): N18.6 - End stage renal disease Status: Chronic (4) DVT prophylaxis: Code(s): Z29.9 - Encounter for prophylactic stacey
[2020-12-21 18:01] LABS: Glucose Point of Care 227 mg/dl (65-105)
[2020-12-25 14:50] LABS: Glucose Pleural Fluid 182 mg/dL; LDH Pleural Fluid 402 U/L; Total Protein Pleural Fluid 3.5 g/dL
[2020-12-28 21:21] LABS: Albumin Pleural Fluid 2.3 g/dL
[2020-12-28 22:16] LABS: Amylase, Pleural Fluid 61 U/L
== END 2020-12-21 17:57 | disposition home or self-care (01) ==
LOC: ANHED 20:52 → ANHIMU 22:09
PROVIDERS: Internal Medicine; Nurse Practitioner; Specialist; Admitting Provider Hospitalist; Emergency Provider Emergency Medicine; PCP Family Medicine; Visit Provider Hospitalist
DX: R55 Syncope and collapse (principal); R77.8 Other specified abnormalities of plasma proteins; I13.2 Hypertensive heart and chronic kidney disease with heart failure and with stage 5 chronic kidney disease, or end stage renal disease; N18.6 End stage renal disease; E11.22 Type 2 diabetes mellitus with diabetic chronic kidney disease; E11.649 Type 2 diabetes mellitus with hypoglycemia without coma; F03.90 Unspecified dementia, unspecified severity, without behavioral disturbance, psychotic disturbance, mood disturbance, and anxiety; F17.210 Nicotine dependence, cigarettes, uncomplicated; I50.22 Chronic systolic (congestive) heart failure; I25.10 Atherosclerotic heart disease of native coronary artery without angina pectoris; I25.2 Old myocardial infarction; J90 Pleural effusion, not elsewhere classified; K21.9 Gastro-esophageal reflux disease without esophagitis; R06.02 Shortness of breath; Z99.2 Dependence on renal dialysis; Z79.4 Long term (current) use of insulin; Z95.5 Presence of coronary angioplasty implant and graft; Z95.1 Presence of aortocoronary bypass graft
CPT/HCPCS: 32555; 36415; 71045; 71250; 80048; 80053; 80061; 82042; 82150; 82945; 82948; 83615; 83735; 83986; 84100; 84157; 84311; 84443; 84478; 84484; 85025; 85055; 85610; 85730; 87015; 87070; 87075; 87102; 87116; 87205; 87206; 88104; 88108; 88184; 88305; 88313; 88342; 89051; 93005; 93306; 94640; 96374; 99285; A9270; G0378; J1815; J1940

== ENCOUNTER 2020-12-29 15:28 | Emergency (ER) | payer OTHER, MEDICARE, SELFPAY ==
[2020-12-29] VITALS (9 sets, daily range): BP systolic 112–184; BP diastolic 76–87; PULSE 106–126; RESP 13–36; TEMP 36.9; O2SAT 96–99
--- NOTE | ~2020-12-29 | XR_ITS ---
EXAMINATION: XR chest 2V DATE: 12/29/2020 16:15 INDICATION: Shortness of breath TECHNIQUE: frontal and lateral views of the chest were obtained. COMPARISON: Chest radiograph dated 12/19/[address] dated 12/21/2020 FINDINGS: Opacification of the caudal half of the right hemithorax consistent with a moderate to large right pl eural effusion with associated compressive atelectasis. Difficult to exclude underlying pneumonia or malignancy in the collapsed portion of the lung. Left lung is clear. No pneumothorax, pulmonary edema or left-sided pleural effusion. The right heart border is obscured. The remainder the cardiomediasti nal silhouette is normal. Median sternotomy wires and mediastinal surgical clips are seen, likely fro m prior coronary artery bypass grafting. Coronary artery stenting. Large-bore dual-lumen right inter nal jugular central venous catheter with distal tip near the superior cavoatrial junction. Retained e picardial pacemaker leads. IMPRESSION: 1. Moderate to large unilateral right pleural effusion with compressive atelectasis in the right mid and lower lung zones. Difficult to exclude underlying pneumonia or malignancy in the collapsed portio ns of the right lung. Reviewed, dictated and finalized at location A. IMPRESSION: 1. Moderate to large unilateral right pleural effusion with compressive atelect asis in the right mid and lower lung zones. Difficult to exclude underlying pne umonia or malignancy in the collapsed portions of the right lung.
--- NOTE | ~2020-12-29 | US_ITS ---
EXAMINATION: US thoracentesis DATE: 12/29/2020 18:23 INDICATION: Right pleural effusion TECHNIQUE: The procedure and its risks and benefits were discussed with the patient. Potential risks discussed included bleeding, infection, and pneumothorax. The patient understood the risks and agreed to proceed. The skin was prepped and draped in sterile fashion. 1% lidocaine was used for local anes thesia. Under ultrasound guidance, a 5 Fr catheter with trochar was advanced into the right pleural e ffusion. Fluid was aspirated. The catheter was removed, and a dressing was applied. There were no imm ediate complications. FINDINGS: Ultrasound images demonstrate a large right pleural effusion and the catheter within the fluid. IMPRESSION: 1. Successful ultrasound-guided thoracentesis yielding 950 mL of ben-colored fluid. Reviewed, dictated and finalized at location A.
--- NOTE | ~2020-12-29 | XR_ITS ---
EXAMINATION: [id number] DATE: 12/29/2020 18:17 INDICATION: Status post right thoracentesis TECHNIQUE: COMPARISON: Chest radiograph dated FINDINGS: Decrease in size of a now small to moderate right pleural effusion postthoracentesis. There is improv ed aeration of the previously collapsed right lower lobe. There appears be a persistent consolidation in the right middle lobe. Left lung remains clear. No pneumothorax, pulmonary edema or left-sided pl eural effusion. Cardiomediastinal silhouette is normal. Median sternotomy wires and mediastinal surgi chaim clips are seen, likely from prior coronary artery bypass grafting. Large-bore dual-lumen right in ternal jugular central venous catheter with distal tip near the superior cavoatrial junction. Retaine d epicardial pacemaker leads. IMPRESSION: 1. Decrease in size of a now small to moderate right pleural effusion with improved aeration of the p reviously collapsed right lower lobe. 2. Persistent consolidation in the right middle lobe which could represent atelectasis but cannot exc lude underlying pneumonia or malignancy. Reviewed, dictated and finalized at location A. IMPRESSION: 1. Decrease in size of a now small to moderate right pleural effusion with impr chandra aeration of the previously collapsed right lower lobe. 2. Persistent consolidation in the right middle lobe which could represent atel ectasis but cannot exclude underlying pneumonia or malignancy.
--- NOTE | 2020-12-29 16:03 | ECG_ITS ---
Measurements Intervals [place] Rate: 107 P: 43 IA: 148 QRS: 94 QRSD: 121 T: 30 QT: 359 QTc: 479 Interpretive Statements SINUS TACHYCARDIA RIGHT AXIS DEVIATION INTRAVENTRICULAR CONDUCTION DELAY BORDERLINE R WAVE PROGRESSION, ANTERIOR LEADS CONSIDER INFERIOR INFARCT, AGE INDETERMINATE BASELINE ARTIFACT- II, III, AVF, V3-V6 ABNORMAL ECG Electronically Signed On 12-29-2020 16:06:10 CDT by Zhen Henning D.O.
[2020-12-29 16:15] LABS: Basophils Percent Auto 0.5 % (0.2-1.2); Eosinophils Percent Auto 0.4 % (0-4.4); Hematocrit 33.5 % (37.0-47.0); Hemoglobin 10.7 g/dL (12.0-15.0); Immature Granulocyte Absolute 0.05 K/mm3 (0.00-0.031); Immature Granulocyte Percent A 0.6 % (0-0.5); Lymphocytes Absolute Auto 0.94 K/mm3 (0.9-3.2); Lymphocytes Percent Auto 11.2 % (18.3-44.2); Mean Corpuscular HGB Conc 31.9 g/dl (32-36); Mean Corpuscular Hemoglobin 30.7 pg (26-34); Mean Platelet Volume 9.9 fl (7.4-10.4); Monocytes Absolute Auto 0.7 K/mm3 (0.1-0.6); Neutrophils Absolute Auto 6.6 K/mm3 (1.3-6.7); Neutrophils Percent Auto 79.3 % (45.5-73.1); Platelet Count Result 199 k/mm3 (150-375); Red Blood Count 3.49 M/mm3 (4.2-5.4); Red Cell Distribution Width 13.7 % (11.5-14.5); White Blood Count 8.4 K/mm3 (4.5-10.0)
[2020-12-29 16:31] LABS: Anion Gap 10 mmol/L (8-16); Blood Urea Nitrogen 11 mg/dL (7-17); Calcium 8.5 mg/dL (8.4-10.2); Carbon Dioxide 29 mmol/L (22-30); Chloride 97 mmol/L (98-107); Estimated CRCL calculation 18 ml/min; Estimated Glomerular Filt Rate 24; Glucose 112 mg/dL (65-105); Potassium 4.1 mmol/L (3.4-5.0); Sodium 136 mmol/L (137-145)
--- NOTE | 2020-12-29 17:55 | ED.SOB ---
HPI - SOB/Dyspnea General Chief Complaint: Shortness of Breath/Dyspnea Stated Complaint: SOB, HX PLEURAL EFFUSIONS Time Seen by Provider: 12/29/20 16:22 Source: family Mode of arrival: ambulatory Limitations: dementia History of Present Illness HPI Narrative: 65-year-old female Familiar to me from a visit about 10 days ago At that time she was ultimately found to have a large malignant pleural effusion a area of collapsed lung and a suspicious endobronchial lesion on the right side She has been to dialysis today already She complains of progressively increasing dyspnea since hospital discharge which has not been alleviated by dialysis treatments She is not too bad when at rest, but when trying to ambulate or supine she gets fairly short of breath No cough, no fever, no chest pain She has an appointment to see Dr. Gill tomorrow elicited complaint: shortness of breath Related Data Home Medications Medication Instructions Recorded Confirmed aspirin 81 mg tablet,delayed 81 mg PO DAILY 06/06/19 12/19/20 release isosorbide mononitrate 30 mg 30 mg PO DAILY 06/06/19 12/19/20 tablet,extended release 24 hr rosuvastatin 40 mg tablet 40 mg PO DAILY 06/06/19 12/19/20 carvedilol 6.25 mg tablet 6.25 mg PO Q12H 12/03/20 12/19/20 cholecalciferol (vitamin D3) 25 1,000 unit PO BID cap 12/03/20 12/19/20 mcg (1,000 unit) capsule ezetimibe 10 mg tablet 10 mg PO DAILY 12/03/20 12/19/20 glimepiride 1 mg PO DAILY 12/19/20 12/19/20 Allergies Allergy/AdvReac Type Severity Reaction Status Date / Time No Known Allergies Allergy Verified 12/29/20 15:45 Review of Systems Review of Systems: All systems reviewed & are unremarkable except as noted in HPI and below Constitutional: Constitutional: Reports no additional constitutional complaints, Denies chills, Reports fatigue, Denies fever(s), Denies headache(s) and Reports weakness Eyes: Eyes: Reports no additional eye complaints and Denies change in vision ENT: Denies headache(s) and Denies sore throat Cardiovascular: Cardiovascular: Denies chest pain and Denies dyspnea Respiratory: Respiratory: Denies cough and Reports dyspnea Gastrointestinal: Gastrointestinal: Denies abdominal pain, Denies diarrhea and Denies vomiting Genitourinary: Genitourinary: Denies urinary frequency and Denies dysuria Musculoskeletal: Musculoskeletal: Denies deformity, Denies arthralgias, Denies joint swelling and Denies numbness Integumentary/Breasts: Skin/Breast: Denies rash and Denies wounds Neurologic: Denies headache(s), Denies focal weakness and Denies numbness Psychiatric: Psychiatric: Reports no additional psychiatric complaints Endocrine: Endocrine: Reports no additional endocrine complaints Hematologic/Lymphatic: Hematologic/Lymphatic: Reports no additional hematologic/lymphatic complaints Allergic/Immunologic: Allergic/Immunologic: Reports no additional allergic/immunologic complaints [facility] Past Medical History Medical History (Updated 12/29/20 @ 18:06 by Harrison Laguerre MD) Adenocarcinoma, lung Anemia Bilateral carotid artery stenosis CAD (coronary artery disease) Two vessel CABG September 201310/2013 STEMI, bare metal stent placed to the MUÑOZ /Left anterior descending anastomosis. OM 1 and RCA were chronically occluded. CHF (congestive heart failure) COPD (chronic obstructive pulmonary disease) PFTs October 2019 demonstrated mild obstructive ventilatory defect and severe small airway disease without significant bronchodilator effect Dementia Depression Essential (primary) hypertension GERD without esophagitis Heart attack History of blood transfusion Hyperlipidemia Post-menopausal Type 2 diabetes mellitus without complication, without long-term current use of insulin Ulcer UTI (urinary tract infection) Surgical History Surgical History (Updated 12/21/20 @ 12:04 by Natalie Solorio MD) History of breast biopsy (Unknown) History of cardiac catheterization
--- NOTE | 2020-12-29 19:30 | PC.NURSE ---
Pt resting on cart in its lowest position with spouse is present at bedside. Pt states that she feels fine and denies all pain and discomfort at this time. Pt is alert and oriented x4 and in no obvious distress with stable vitals. Pt aware of poc and all questions and concerns addressed.
--- NOTE | 2020-12-29 20:08 | PC.NURSE ---
Pt continues to rest on cart and is ready for dc. Vitals remain stable and pt remains alert and oriented x4. Spouse remains at bedside.
== END 2020-12-29 20:15 | disposition home or self-care (01) ==
PROVIDERS: Emergency Medicine; Emergency Provider Emergency Medicine; PCP Family Medicine
DX: C80.1 Malignant (primary) neoplasm, unspecified (principal); J91.0 Malignant pleural effusion; I25.10 Atherosclerotic heart disease of native coronary artery without angina pectoris; I25.2 Old myocardial infarction; I65.23 Occlusion and stenosis of bilateral carotid arteries; I50.9 Heart failure, unspecified; I11.0 Hypertensive heart disease with heart failure; J44.9 Chronic obstructive pulmonary disease, unspecified; F03.90 Unspecified dementia, unspecified severity, without behavioral disturbance, psychotic disturbance, mood disturbance, and anxiety; F32.9 Major depressive disorder, single episode, unspecified; K21.9 Gastro-esophageal reflux disease without esophagitis; E78.5 Hyperlipidemia, unspecified; E11.22 Type 2 diabetes mellitus with diabetic chronic kidney disease; N18.6 End stage renal disease; I13.2 Hypertensive heart and chronic kidney disease with heart failure and with stage 5 chronic kidney disease, or end stage renal disease; Z95.5 Presence of coronary angioplasty implant and graft; Z87.440 Personal history of urinary (tract) infections; Z79.82 Long term (current) use of aspirin; Z95.1 Presence of aortocoronary bypass graft; F17.210 Nicotine dependence, cigarettes, uncomplicated; Z99.2 Dependence on renal dialysis; Z79.84 Long term (current) use of oral hypoglycemic drugs; R00.0 Tachycardia, unspecified; I45.9 Conduction disorder, unspecified; R94.31 Abnormal electrocardiogram [ECG] [EKG]; R91.8 Other nonspecific abnormal finding of lung field
CPT/HCPCS: 32555; 36415; 71046; 80048; 85025; 93005; 99284

== ENCOUNTER 2021-01-08 12:08 | Outpatient (CLI) | payer OTHER, MEDICARE, SELFPAY ==
--- NOTE | ~2021-01-08 | CT_ITS ---
EXAMINATION: CT brain wo con DATE: 01/08/2021 14:13 INDICATION: Lung cancer. TECHNIQUE: Computed tomography (CT) of the head was performed without intravenous contrast. The mA wa s adjusted according to patient size. Iterative reconstruction technique was employed. The dose-lengt h product was 605.33 mGy-cm. COMPARISON: Head CT 01/10/2020 FINDINGS: There is an 8 mm mass in right frontal lobe that is hyperdense to may matter. There is a s mall old infarct in left frontoparietal region. There is a small old infarct in the left basal gangli a. There is a 6 mm mass in the right cerebellum with surrounding vasogenic edema. There is a 6 mm chaim cified extra-axial mass overlying right frontal lobe, consistent with a meningioma. There is no acute ischemic infarct. The ventricles are normal in size. There is mild mucosal thickening in the ethmoid sinuses. There are changes of left mastoidectomy. The orbits are normal. IMPRESSION: 1. New masses in the right cerebellum and right frontal lobe, consistent with metastatic disease. 2. Stable 6 mm calcified extra-axial mass overlying right frontal lobe, consistent with a meningioma. 3. 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 Reviewed, dictated and finalized at location A. IMPRESSION: 1. New masses in the right cerebellum and right frontal lobe, consistent with m etastatic disease. 2. Stable 6 mm calcified extra-axial mass overlying right frontal lobe, consist ent with a meningioma. 3. 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
--- NOTE | ~2021-01-08 | PE_ITS ---
EXAMINATION: PET skull to mid thigh DATE: 01/08/2021 14:27 INDICATION: Lung cancer. TECHNIQUE: Blood glucose level was 96 mg/dL. 9.401 mCi of 18-fluorodeoxyglucose (18-FDG) was administ ered i.v. Low dose computed tomography (CT) images were acquired from the base of the brain to the pr oximal thighs for attenuation correction and anatomic localization. Automated exposure control was em ployed. Dose-length product (DLP) was 301 mGy-cm. Positron emission tomography (PET) images were acqu ired in the same distribution. COMPARISON: Chest CT 12/21/2020, CT abdomen and pelvis 01/10/2020 FINDINGS: Head/neck: There is increased activity in the glottis without CT correlate, likely physiologic. There are no pathologically enlarged lymph nodes. Chest: There are large right and small left pleural effusions. There are multiple nodules and masses in the lungs with increased activity. The heart size is normal. There are coronary artery calcificati ons. There are changes of coronary artery bypass grafting. There is mediastinal and right hilar lymph adenopathy with increased activity. There is a lytic lesion in left scapula with increased activity. There is a lytic lesion in T4 vertebral body with increased activity. There is a right internal jugul ar central venous catheter with tip in right atrium. Abdomen/pelvis/proximal thighs: There are two ill-defined masses in the liver with increased activity with the larger measuring approximately 2.5 cm. The gallbladder, spleen, pancreas, adrenal glands, a nd kidneys are normal. There are no dilated loops of bowel. There are no pathologically enlarged lymp h nodes. There is no free intraperitoneal fluid. There are lesions in the lumbar spine, left ilium, l eft sacral ala, and proximal right femur with increased activity. IMPRESSION: 1. Lung lesions, liver lesions, and bone lesions with increased activity, consistent with metastatic disease. 2. Large right and small left pleural effusions. Reviewed, dictated and finalized at location A. IMPRESSION: 1. Lung lesions, liver lesions, and bone lesions with increased activity, consi stent with metastatic disease. 2. Large right and small left pleural effusions.
[2021-01-09 06:27] LABS: Glucose Point of Care 96 mg/dl (65-105)
== END 2021-01-08 12:09 | disposition home or self-care (01) ==
PROVIDERS: PCP Family Medicine; Visit Provider Internal Medicine Hematology & Oncology
DX: C34.91 Malignant neoplasm of unspecified part of right bronchus or lung (principal); R93.0 Abnormal findings on diagnostic imaging of skull and head, not elsewhere classified
CPT/HCPCS: 70450; 78815; 82948; A9552

== ENCOUNTER 2021-01-10 05:26 | Inpatient (IN) | payer OTHER, MEDICARE, SELFPAY ==
[2021-01-10] VITALS (33 sets, daily range): BP systolic 70–167; BP diastolic 44–99; PULSE 100–128; RESP 14–36; TEMP 36.2–36.8; O2SAT 95–98; BMI 20.1
--- NOTE | ~2021-01-10 | XR_ITS ---
XR chest 1V portable 01/10/2021 05:48 Indication: Shortness of breath Procedure: AP portable chest Comparison: Comparison to multiple prior studies sequentially, with oldest reviewed study dated 01/09. Findings: Status post median sternotomy for CABG. Large right pleural effusion with underlying compre ssive atelectasis. Large bore central venous catheter tip in the SVC. Impression: 1: Large right pleural effusion with underlying compressive atelectasis. Reviewed, dictated and finalized at location A. Impression: 1: Large right pleural effusion with underlying compressive atelectasis.
--- NOTE | ~2021-01-10 | CT_ITS ---
EXAMINATION: CT brain wo con DATE: 01/10/2021 18:19 INDICATION: Right hemiparesis. TECHNIQUE: Computed tomography (CT) of the head was performed without intravenous contrast. The mA wa s adjusted according to patient size. Iterative reconstruction technique was employed. The dose-lengt h product was 605.33 mGy-cm. COMPARISON: Head CT 01/08/2021 FINDINGS: There are approximately 4 scattered masses in the brain with involvement of the frontal lob es and right cerebellum. The mass surrounds are hyperdense and some have cystic components. The large st mass measures 11 mm in right frontal lobe. The right cerebellar mass demonstrates surrounding low- attenuation vasogenic edema. These findings are consistent with metastatic disease. There is a chroni c 6 mm calcified extra-axial mass overlying right frontal lobe, consistent with a meningioma. There i s an old lacunar infarct in the left lentiform nucleus. There is an acute infarct in the left frontop arietal region. The mastoid air cells are normal. The orbits are normal. The paranasal sinuses are cl ear. There are changes of left mastoidectomy. IMPRESSION: 1. Acute left frontoparietal infarct, worsened from 01/08/2021. 2. Approximately 4 brain masses, consistent metastatic disease. 3. Old infarct in the left basal ganglia. 4. Chronic 6 mm calcified extra-axial mass overlying right frontal lobe, consistent with a meningioma . Reviewed, dictated and finalized at location A. IMPRESSION: 1. Acute left frontoparietal infarct, worsened from 01/08/2021. 2. Approximately 4 brain masses, consistent metastatic disease. 3. Old infarct in the left basal ganglia. 4. Chronic 6 mm calcified extra-axial mass overlying right frontal lobe, consis tent with a meningioma.
--- NOTE | ~2021-01-10 | US_ITS ---
EXAMINATION: US thoracentesis DATE: 01/10/2021 08:38 CDT INDICATION: Right pleural effusion TECHNIQUE: Survey imaging of the right chest was performed. The procedure for ultrasound-guided thor acentesis and its risk and benefits were discussed with the patient. Risks included but were not limi kristan to pain, bleeding, pneumothorax and infection. The patient verbalized understanding and provided written consent. A time-out was performed to document the patient's name, date of , and site of procedure. The r ight chest was prepped and draped in usual sterile fashion. 1% lidocaine was used for local anesthes ia. Utilizing ultrasound guidance, a 5 burkinan cather was advanced into pleural fluid. Aspiration wa s performed. The patient tolerated procedure without immediate complication. Sterile bandages were applied over t he aspiration site(s).] FINDINGS: 1000 cc of straw-colored fluid obtained without complication. IMPRESSION: 1. Successful ultrasound-guided right thoracentesis. Reviewed, dictated and finalized at location A.
--- NOTE | ~2021-01-10 | XR_ITS ---
[id number] 01/10/2021 08:24 Indication: Right pleural effusion Procedure: AP portable chest Comparison: 01/10/2021 Findings: Decreased size of right pleural effusion postthoracentesis. No pneumothorax. Status post me kameron sternotomy for CABG. Cardiomegaly. Large bore central venous catheter stable. Impression: 1: Decreased size of right pleural effusion postthoracentesis. No pneumothorax. Reviewed, dictated and finalized at location A. Impression: 1: Decreased size of right pleural effusion postthoracentesis. No pneumothorax.
--- NOTE | ~2021-01-10 | US_ITS ---
EXAMINATION: US carotid duplex BI DATE: 01/11/2021 13:54 INDICATION: Carotid bruit TECHNIQUE: Grayscale, color Doppler, and pulsed Doppler images of the cervical carotid arteries were obtained. The degree of vessel stenosis is placed in one of the following categories: normal, <50%, 5 0-69%, >=70% but less than near-occlusion, near-occlusion, or total occlusion. Note that percent sten osis relative to normal distal artery lumen diameter is indirectly measured from velocity measurement s as described by Nikhil, et al. Radiology 2003; 229:340-346. Notes: Normal: Peak systolic velocity <125 centimeters/sec and no plaque <50%. Peak systolic velocity <125 ( EDV <40; ICA/CCA PSV ratio <2.0; used these factors only a tandem lesions or low cardiac output or co ntralateral disease) 50-69 %: PSV 125-230 (EDV 40-100; ratio 2-4) >= 70% but less than near occlusion: PSV greater than 230 (EDV > 100; ratio> 4.0) Near Occlusion: PSV that is variable; markedly narrowed lumen Occlusion: Absent flow on color/spectral Doppler and no lumen on may scale. COMPARISON: None. FINDINGS: RIGHT: The right common carotid artery (CCA) peak systolic velocity (PSV) is 134 cm/s. The right internal ca rotid artery (ICA) PSV is 302 cm/s. The right ICA end-diastolic velocity (EDV) is 89 cm/s. The right ICA/CCA PSV ratio is 2.3. The external carotid artery (ECA) PSV is 261 cm/s. There is antegrade flow in the right vertebral artery. LEFT: The left CCA PSV is 76 cm/s. The left ICA PSV is 570 cm/s. The left ICA EDV is 221 cm/s. The left ICA /CCA PSV ratio is 7.5. The ECA PSV is 256 cm/s. There is reversed flow in the left vertebral artery. IMPRESSION: 1. Greater than 70% stenosis in the right internal carotid artery by sonographic criteria. 2. Greater than 70% stenosis in the left internal carotid artery by sonographic criteria. 3: Reversal of flow in the left vertebral artery. Reviewed, dictated and finalized at location A. IMPRESSION: 1. Greater than 70% stenosis in the right internal carotid artery by sonographi c criteria. 2. Greater than 70% stenosis in the left internal carotid artery by sonographic criteria. 3: Reversal of flow in the left vertebral artery.
--- NOTE | 2021-01-10 05:34 | ECG_ITS ---
Measurements Intervals [place] Rate: 105 P: 53 DC: 141 QRS: 105 QRSD: 113 T: 87 QT: 381 QTc: 505 Interpretive Statements SINUS TACHYCARDIA RIGHT AXIS DEVIATION INTRAVENTRICULAR CONDUCTION DELAY DELAYED PRECORDIAL R/S TRANSITION CONSIDER INFERIOR INFARCT, AGE INDETERMINATE BORDERLINE T WAVE ABNORMALITY- LAT/HIGH LAT LEADS ABNORMAL ECG Electronically Signed On 01-10-2021 6:31:24 CDT by Zhen Henning D.O.
--- NOTE | 2021-01-10 05:37 | ED.SOB ---
HPI - SOB/Dyspnea General Chief Complaint: Shortness of Breath/Dyspnea <Nikhil Wang MD - Last Filed: 01/10/21 06:34> Stated Complaint: difficulty breathing <Nikhil Wang MD - Last Filed: 01/10/21 06:34> Time Seen by Provider: 01/10/21 05:32 <Nikhil Wang MD - Last Filed: 01/10/21 06:34> History of Present Illness HPI Narrative: 65 yo female w/ h/o COPD, stage 4 lung caner presents to the ED for SOB. She has dyspnea with minimal exertion and is not able to lay flat. SHe has reccurent pleural effusions on the left side and has had to get thoracentesis about every week. No pain or fever <Nikhil Wang MD - Last Filed: 01/10/21 06:34> Related Data Home Medications: Home Medications Medication Instructions Recorded Confirmed aspirin 81 mg tablet,delayed 81 mg PO DAILY 06/06/19 01/07/21 release isosorbide mononitrate 30 mg 30 mg PO DAILY 06/06/19 01/07/21 tablet,extended release 24 hr rosuvastatin 40 mg tablet 40 mg PO DAILY 06/06/19 01/07/21 carvedilol 6.25 mg tablet 6.25 mg PO Q12H 12/03/20 01/07/21 cholecalciferol (vitamin D3) 25 1,000 unit PO BID cap 12/03/20 01/07/21 mcg (1,000 unit) capsule ezetimibe 10 mg tablet 10 mg PO DAILY 12/03/20 01/07/21 glimepiride 1 mg PO DAILY 12/19/20 01/07/21 <Nikhil Wang MD - Last Filed: 01/10/21 06:34> Allergies/Adverse Reactions: Allergies Allergy/AdvReac Type Severity Reaction Status Date / Time No Known Allergies Allergy Verified 01/10/21 05:33 <Nikhil Wang MD - Last Filed: 01/10/21 06:34> Review of Systems Review of Systems: All systems reviewed & are unremarkable except as noted in HPI and below <Nikhil Wang MD - Last Filed: 01/10/21 06:34> ROS unobtainable: Yes other (somewhat limited by dmeentia) <Nikhil Wang MD - Last Filed: 01/10/21 06:34> Constitutional: Constitutional: Denies chills, Denies fever(s) and Denies weakness <Nikhil Wang MD - Last Filed: 01/10/21 06:34> Cardiovascular: Cardiovascular: Denies chest pain <Nikhil Wang MD - Last Filed: 01/10/21 06:34> Gastrointestinal: Gastrointestinal: Denies abdominal pain and Denies nausea <Nikhil Wang MD - Last Filed: 01/10/21 06:34> [facility] Past Medical History Medical History: Medical History Adenocarcinoma, lung Anemia Bilateral carotid artery stenosis CAD (coronary artery disease) Two vessel CABG September 201310/2013 STEMI, bare metal stent placed to the MUÑOZ /Left anterior descending anastomosis. OM 1 and RCA were chronically occluded. CHF (congestive heart failure) COPD (chronic obstructive pulmonary disease) PFTs October 2019 demonstrated mild obstructive ventilatory defect and severe small airway disease without significant bronchodilator effect Dementia Depression Essential (primary) hypertension GERD without esophagitis Heart attack History of blood transfusion Hyperlipidemia Post-menopausal Type 2 diabetes mellitus without complication, without long-term current use of insulin Ulcer UTI (urinary tract infection) <Nikhil Wang MD - Last Filed: 01/10/21 06:34> Surgical History Surgical History: Surgical History History of breast biopsy (Unknown) History of cardiac catheterization September 2013 demonstrating moderate left ventricular enlargement with severe left ventricular hypokinesis ejection fraction of 30% with severe multivessel coronary artery disease in the left main LAD and RCA with total occlusion of the left subclavian History of coronary artery stent placement (~2013) 10/2013 STEMI, bare metal stent placed to the MUÑOZ /Left anterior descending anastomosis, DR. Guerrero. OM 1 and RCA were chronically occluded History of tubal ligation (Unknown) Hx of CABG September 2013, MUÑOZ to LAD and ? S/P dialysis catheter insertion Right neck Stented coron
--- NOTE | 2021-01-10 05:41 | PC.NURSE ---
Pt to [facility] via stretcher at this time.
[2021-01-10 06:14] LABS: Basophils Percent Auto 0.3 % (0.2-1.2); Eosinophils Absolute Auto 0.1 K/mm3 (0-0.3); Eosinophils Percent Auto 0.8 % (0-4.4); Hematocrit 35.1 % (37.0-47.0); Hemoglobin 11.1 g/dL (12.0-15.0); Immature Granulocyte Absolute 0.05 K/mm3 (0.00-0.031); Immature Granulocyte Percent A 0.5 % (0-0.5); Lymphocytes Absolute Auto 0.77 K/mm3 (0.9-3.2); Lymphocytes Percent Auto 7.2 % (18.3-44.2); Mean Corpuscular HGB Conc 31.6 g/dl (32-36); Mean Corpuscular Hemoglobin 29.9 pg (26-34); Mean Corpuscular Volume 94.6 fl (80-100); Mean Platelet Volume 9.8 fl (7.4-10.4); Monocytes Absolute Auto 0.8 K/mm3 (0.1-0.6); Monocytes Percent Auto 7.2 % (2.6-8.5); Platelet Count Result 211 k/mm3 (150-375); Red Blood Count 3.71 M/mm3 (4.2-5.4); Red Cell Distribution Width 14.5 % (11.5-14.5); White Blood Count 10.7 K/mm3 (4.5-10.0)
[2021-01-10 06:22] LABS: Anion Gap 12 mmol/L (8-16); Blood Urea Nitrogen 37 mg/dL (7-17); Calcium 8.8 mg/dL (8.4-10.2); Carbon Dioxide 25 mmol/L (22-30); Chloride 98 mmol/L (98-107); Estimated CRCL calculation 8 ml/min; Estimated Glomerular Filt Rate 9; Glucose 81 mg/dL (65-105); Potassium 3.7 mmol/L (3.4-5.0); Sodium 135 mmol/L (137-145)
--- NOTE | 2021-01-10 06:25 | PC.NURSE ---
Per family at bedside, pt has been weak with poor appetite this past week. Reports that pt couldn't get out of bed this morning . He also states that pt missed dialysis yesterday. Pt resting on stretcher, A&Ox2 per baseline at this time.
[2021-01-10 06:26] LABS: INR 1.1; Prothrombin Time 14.6 Seconds (11.1-14.7)
[2021-01-10 06:27] LABS: Partial Thromboplastin Time 25.6 SECONDS (22.3-36.8)
[2021-01-10 06:44] LABS: NT Pro B Type Natriuretic Pept 7770 pg/mL (5-100); Troponin I 0.077 ng/mL (0.000-0.034)
--- NOTE | 2021-01-10 09:26 | PC.NURSE ---
[facility] hospice called back to inform us that they were working on getting the patient placed.
[2021-01-10 09:54] LABS: Troponin I 0.068 ng/mL (0.000-0.034)
[2021-01-10] MEDS: ACETAMINOPHEN 325 MG TABLET 650 MG PO (10:22)
--- NOTE | 2021-01-10 12:30 | PM.IMHP ---
H&P: HPI History of Present Illness Date/Time: 01/10/21 12:30 Chief Complaint: Shortness of breath. 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 she is known to the hospitalist service with a recent admission on 12/19/2020 at which time she presented with a near syncopal episode from dialysis. Ultimately she was admitted with hypertensive urgency but she was also noted to have a moderate to large-sized pleural effusion for which she underwent thoracentesis. The effusion recurred and she had another outpatient thoracentesis done on the . Cytology of the pleural fluid did show adenocarcinoma, favor lung primary, and a subsequent PET-CT on 01/08/2021 showed lung lesions, liver lesions, and bone lesions with increased activity consistent with metastatic disease. A brain CT done on the same day showed new masses in the right cerebellum and right frontal lobe consistent with metastatic disease and old infarcts in the left basal ganglia and left frontoparietal region. Since that time she has had progressive shortness of breath with orthopnea and today she was once again found to have a large recurrent right-sided effusion which has been drained per Dr. Johnson (interventional radiology). On exam she was also noted to be nearly flaccid in the right upper extremity with marked weakness in the right lower extremity, and reports that she has not been able to get out of bed or stand for a couple of days which is when the symptoms started. At the time of my evaluation she is resting comfortably and has no specific complaints. She is still mildly short of breath and notes that she missed dialysis yesterday due to her inability to get out of bed. Her appetite is poor but she denies nausea and vomiting. Aside from the right-sided weakness she has no other neurologic complaints other than her significant short-term memory loss which is her baseline. She specifically denies headache, vertigo, auditory, and visual changes. No fever, chills, or sweats. Review of Systems Review of Systems: Narrative: Twelve systems were reviewed with pertinent positives and negatives as per HPI. No recent cold or flu symptoms. No fever, chills, or sweats. No vomiting or diarrhea. Appetite has been poor and she has lost about 10 pounds. She denies dysphagia. She does still make urine and she denies dysuria. Except as documented, all other systems were reviewed and are negative. [facility] Past Medical History Medical History (Updated 01/10/21 @ 22:11 by Nanette Bright PA-C) Anemia of chronic disease Bilateral carotid artery stenosis Chronic obstructive pulmonary disease PFTs in October 2019 demonstrated mild obstructive ventilatory defect and severe small airway disease without significant bronchodilator effect. Congestive heart failure Echocardiogram on 12/20/2020 showed mildly reduced left ventricular systolic function with an estimated EF of 45 to 50%. Coronary artery disease Two vessel CABG September 2013. 10/2013 STEMI, bare metal stent placaed to the MUÑOZ/aeft anterior descending anastomosis. OM 1 and RCA were chronically occluded. Dementia reports that the patient's at stained what sounds like hypoxic brain injury during her CABG and has had severe short-term memory loss since that time. Depression End-stage renal disease on hemodialysis Essential hypertension Gastroesophageal reflux disease History of blood transfusion Hyperlipidemia Mild pulmonary hypertension Estimated pulmonary arterial systolic pressure of 48 mmHg on echocardiogram dated 12/20/2020. Post-menopausal Stage IV adenocarcinoma of lung Thoracentesis on 12/21/2020 consist
--- NOTE | 2021-01-10 16:34 | PM.CNNEP ---
Assessment and Plan Assessment and plan (1) End stage renal disease: Code(s): N18.6 - End stage renal disease Status: Chronic Assessment and Plan: HD today and resume M/W/F schedule next week follow electrolytes, volume status, and clearance (2) Recurrent pleural effusion on right: Code(s): J90 - Pleural effusion, not elsewhere classified Status: Chronic Assessment and Plan: s/p therapeutic thoracentesis earlier today may need to consider pleurx catheter placement for ongoing drainage (3) Stage IV adenocarcinoma of lung: Code(s): C34.90 - Malignant neoplasm of unspecified part of unspecified bronchus or lung Status: Chronic Assessment and Plan: as noted by recent imaging studies care home prognosis poor (4) Right hemiplegia: Code(s): G81.91 - Hemiplegia, unspecified affecting right dominant side Status: Acute Assessment and Plan: given this finding (new), repeat CT scan of head today concerning since she already had metastatic lesion in her brain by last imaging (5) Anemia of chronic disease: Code(s): D63.8 - Anemia in other chronic diseases classified elsewhere Status: Chronic Assessment and Plan: due to ESRD and malignancy Epogen with HD follow trend of H/H (6) Type 2 diabetes mellitus: Code(s): E11.9 - Type 2 diabetes mellitus without complications Status: Chronic Assessment and Plan: follow accuchecks glycemic control Will continue to follow History of Present Illness Reason for Consult Consult date: 01/10/21 Reason for consult: end stage renal disease Chief Complaint Chief complaint: Recurrent pleural effusion/CHF Exacerbation History of Present Illness Narrative: Almost all the information I have obtained is from review of the electronic medical records and discussion with the nurses involved in the patient's care as getting a complete and concise history from the patient is quite limited due to her dementia. The patient is a 65 year old female with a past medical history as outlined below who presented to the [facility] ER due to complaints of shortness of breath. Apparently, on the day of admission, she was noted to be short of breath by family who called EMS which led to subsequent transfer to the emergency room. Apparently, since her last admission here [facility] earlier this month, her overall clinical condition has slowly deteriorated with progressive shortness of breath in association with orthopnea. It should be noted that her last hospitalization for apparent syncope, workup and evaluation at that time demonstrated a large pleural effusion in association with CT scan findings of the chest concerning for malignancy. Cytology of the pleural fluid was consistent with adenocarcinoma and subsequent testing including PET-CT done a few days ago demonstrated metastatic lung cancer with associated the lesions in the liver, bone as well as brain. She has been having recurrence of her right pleural effusions with a recent therapeutic thoracentesis not too long ago. Workup and evaluation emergency room demonstrated the patient to be hemodynamically stable and with labs consistent with her known history of end-stage renal disease. However imaging studies once again showed recurrence of the little large right pleural effusion and she subsequently underwent a ultrasound-guided thoracentesis of this effusion in the hopes that this would improve her respiratory status. She was still somewhat short of breath even after the thoracentesis and there was some concerns that volume overload may be playing a role with regard to her breathing as she missed her scheduled dialysis treatment on Tuesday. Hence, she was admitted the hospital for further evaluation and therapy. Renal consultation was requested due to her end-stage renal disease. The patient normally dialyzes on a
[2021-01-10 17:03] LABS: Glucose Point of Care 112 mg/dl (65-105)
--- NOTE | 2021-01-10 17:10 | ADMGEN ---
This patient, Jaki Luis, was admitted to IMU Room 213-01 @ 1240.Patient/family oriented to hospital policies and general routines including ID bracelet, bed and alarms, visiting hours, pain management, procedures, bathroom and other care routines, personal items, smoking policy, room service/diet, and visiting hours. Information on how to activate the Rapid Response Team has been discussed. Patient/Family are encouraged to report perceived risks to care and to ask questions if they do not understand what they are told or what they should do.
[2021-01-10 17:20] LABS: Hemoglobin A1C 7.4 % (<5.7)
--- NOTE | 2021-01-10 18:39 | PC.NURSE ---
1814- pt to CT DEPT for CT head; 1824- to Dialysis room for treatment accmpanied by staff
[2021-01-10 20:27] LABS: Hepatitis B Surface Antigen Negative (Negative)
[2021-01-10 20:47] LABS: Hepatitis B Surface Anti Res Positive
[2021-01-10 22:03] LABS: Glucose Point of Care 95 mg/dl (65-105)
--- NOTE | 2021-01-10 22:04 | PC.NURSE ---
This patient, Jaki Luis, was received from Dialysis on 01/10/21 at 2155. Patient/family oriented to unit policies and routines
[2021-01-10] MEDS: carvediloL 6.25 MG TABLET PO (22:10)
[2021-01-10] MEDS: CHOLECALCIFEROL 1,000 UNITS TABLET 1000 UNITS PO (22:10)
[2021-01-10] MEDS: DEXAMETHASONE SOD PHOS INJ 4 MG/ML VIAL IV PUSH (23:16)
[2021-01-11] VITALS (17 sets, daily range): BP systolic 91–148; BP diastolic 53–80; PULSE 95–107; RESP 14–18; TEMP 35.7–36.6; O2SAT 96–98
[2021-01-11 05:44] LABS: Hematocrit 35.8 % (37.0-47.0); Hemoglobin 11.2 g/dL (12.0-15.0); Mean Corpuscular HGB Conc 31.3 g/dl (32-36); Mean Corpuscular Hemoglobin 30.2 pg (26-34); Mean Corpuscular Volume 96.5 fl (80-100); Mean Platelet Volume 10.1 fl (7.4-10.4); Platelet Count Result 147 k/mm3 (150-375); Red Blood Count 3.71 M/mm3 (4.2-5.4); Red Cell Distribution Width 14.6 % (11.5-14.5); White Blood Count 9.5 K/mm3 (4.5-10.0)
[2021-01-11 06:09] LABS: Alanine Aminotransferase 44 U/L (4-35); Albumin Level 3.1 g/dL (3.5-5.1); Alkaline Phosphatase 93 U/L (38-126); Anion Gap 10 mmol/L (8-16); Aspartate Amino Transferase 39 U/L (14-36); Bilirubin,Total 0.3 mg/dL (0.2-1.3); Blood Urea Nitrogen 20 mg/dL (7-17); Calcium 8.1 mg/dL (8.4-10.2); Carbon Dioxide 24 mmol/L (22-30); Chloride 99 mmol/L (98-107); Estimated CRCL calculation 14 ml/min; Estimated Glomerular Filt Rate 17; Glucose 149 mg/dL (65-105); Magnesium 2.1 mg/dL (1.6-2.3); Sodium 133 mmol/L (137-145)
[2021-01-11 07:11] LABS: Glucose Point of Care 150 mg/dl (65-105)
[2021-01-11] MEDS: CITALOPRAM HYDROBROMIDE 10 MG TABLET PO (09:04)
[2021-01-11] MEDS: ROSUVASTATIN 10 MG TABLET 40 MG PO (09:05)
[2021-01-11] MEDS: CHOLECALCIFEROL 1,000 UNITS TABLET 1000 UNITS PO ×2 (09:05→20:31)
[2021-01-11] MEDS: EZETIMIBE 10 MG TABLET PO (09:05)
[2021-01-11] MEDS: carvediloL 6.25 MG TABLET PO ×2 (09:05→20:30)
[2021-01-11] MEDS: ASPIRIN 81 MG ENTERIC TABLET PO (09:05)
[2021-01-11] MEDS: ISOSORBIDE MONONITRATE 30 MG TAB.ER.24H PO (09:06)
[2021-01-11 11:42] LABS: Glucose Point of Care 275 mg/dl (65-105)
[2021-01-11] MEDS: INSULIN ASPART (*BKC) 100 UNITS/ML SUB-Q (12:07)
--- NOTE | 2021-01-11 14:45 | PM.PNNEP ---
Progress Note: A&P Assessment and Plan (1) End stage renal disease: Code(s): N18.6 - End stage renal disease Status: Chronic Assessment and Plan: HD tomorrow follow electrolytes, volume status, and clearance discussed with - he is aware no further dialysis will be done once she transitions to hospice on discharge but would like try dialysis tomorrow (2) Recurrent pleural effusion on right: Code(s): J90 - Pleural effusion, not elsewhere classified Status: Chronic Assessment and Plan: s/p therapeutic thoracentesis admission (3) Stage IV adenocarcinoma of lung: Code(s): C34.90 - Malignant neoplasm of unspecified part of unspecified bronchus or lung Status: Chronic Assessment and Plan: 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 - noted plans for transition to hospice (4) Right hemiplegia: Code(s): G81.91 - Hemiplegia, unspecified affecting right dominant side Status: Acute Assessment and Plan: repeat CT Scan of brain noted - acute left frontoparietal infarct noted presumable etiology of her hemiparesis (5) Anemia of chronic disease: Code(s): D63.8 - Anemia in other chronic diseases classified elsewhere Status: Chronic Assessment and Plan: due to ESRD and malignancy Epogen with HD follow trend of H/H (6) Type 2 diabetes mellitus: Code(s): E11.9 - Type 2 diabetes mellitus without complications Status: Chronic Assessment and Plan: follow accuchecks glycemic control Will continue to follow Subjective Date/time seen: 01/11/21 14:45 Did not tolerate dialysis very well yesterday evening -- only able to remove about a 1L of fluid as her blood pressure dropped significantly when attempting to remove more; no other acute complaints voiced but history is limited by her dementia. Exam Narrative: Exam Narrative: GENERAL APPEARANCE: Elderly female in no acute distress HEENT: normocephalic, atraumatic, normal conjunctiva and sclera, nares patient NECK: no lymphadenopathy, thyromegaly, or JVD MOUTH: normal lips, teeth, and gums CARDIOVASCULAR: RRR, normal S1 and S2, no rub RESPIRATORY: decreased at the bases R> L ABDOMEN: soft, nontender, nondistended, positive bowel sounds present EXTREMITIES: no evidence of cyanosis, clubbing, or edema NEUROLOGICAL: alert and oriented x 1 - 2; right hemiparesis is noted Objective Data Vital Signs Vital Signs: Vital Signs Temp Pulse Resp BP Pulse Ox 01/11/21 12:26 35.7 C L 98 14 91/54 L 97 01/11/21 12:00 99 16 96 01/11/21 10:00 103 H 01/11/21 09:54 98 01/11/21 09:05 104 H 01/11/21 08:15 107 H 16 98 01/11/21 08:06 36.1 C L 105 H 14 144/77 H 97 01/11/21 04:00 36.3 C L 102 H 14 148/80 H 97 01/11/21 03:36 97 01/11/21 00:00 97 96 01/10/21 23:34 36.2 C L 104 H 14 137/72 95 01/10/21 22:10 104 H 01/10/21 22:04 36.4 C 104 H 14 110/59 L 96 01/10/21 22:00 36.7 C 128 H 20 107/58 L 96 01/10/21 21:45 112 H 92/58 L 01/10/21 21:30 110 H 90/51 L 01/10/21 21:15 116 H 86/59 L 01/10/21 21:00 112 H 88/51 L 01/10/21 20:45 111 H 95/53 L 01/10/21 20:30 121 H 70/45 L 01/10/21 20:15 122 H 82/47 L 01/10/21 20:00 127 H 92/44 L 01/10/21 19:45 126 H 88/44 L 01/10/21 19:30 120 H 93/57 L 01/10/21 19:15 122 H 105/51 L 01/10/21 19:00 115 H 97/61 L 01/10/21 18:45 107 H 126/74 01/10/21 18:30 36.8 C 101 H 20 167/99 H 01/10/21 18:00 102 H Intake/Output Intake/Output: Intake & Output 01/08/21 01/09/21 01/10/21 01/11/21 23:59 23:59 23:59 23:59 Intake Total 480 340 Output Total 1050 0 Balance -570 340 Meds/Results Medications: Active Medications Generic Name Dose Route Start Last Admin Trade Name Freq PRN Reason Stop Dose Admin Acetaminophen 650 mg
[2021-01-11] MEDS: NICOTINE (*PBKC) 7 MG PATCH 1 PATCH TRANSDERM (15:07)
--- NOTE | 2021-01-11 16:03 | PM.IMPN ---
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 initial vitals showed she was afebrile, tachycardic at 105 beats per minute, respiratory rate 22, blood pressure stable at 119/79, oxygen saturation 97% on room air. Initial labs showed leukocytosis at 10,700, elevated neutrophils 84%, normocytic anemia with a hemoglobin of 11, hematocrit 35%. Normal coag panel. Creatinine 4.8, BUN 37 which is Chronic since she is on hemodialysis. Troponins were elevated and flat could be from end-stage renal disease and dialysis. BNP elevated at 7700. Chest x-ray showed large pleural effusion with underlying compressive atelectasis. the patient was admitted into the hospital for a Therapeutic thoracentesis for her large pleural effusion. during her stay she was found to have right-sided weakness and a CT brain was obtained which showed acute left frontoparietal infarct, worsened from 01/08/2021. approximately 4 brain masses, consistent with metastatic disease. Old infarct in the left basal ganglia. Carotid US showed Greater than 70% stenosis in the right internal carotid artery by sonographic criteria. Greater than 70% stenosis in the left internal carotid artery by sonographic criteria. Reversal of flow in the left vertebral artery. carotid stenosis could be the cause of her acute stroke. after much discussion with the patient's family and Kyle it was decided at the patient will go on hospice. We are trying to work out the details which could be acceptance to [facility] with hospice care verses returning home with hospice care. At this time I will not order any more labs or testing. Will check her vitals as needed. Working with care coordination the family to better coordinate discharge planning. I discussed with the patient's and he agrees no more testing will be completed at this time. (2) Recurrent pleural effusion on right: Code(s): J90 - Pleural effusion, not elsewhere classified Status: Acute (3) Stage IV adenocarcinoma of lung: Code(s): C34.90 - Malignant neoplasm of unspecified part of unspecified bronchus or lung Status: Acute Assessment and Plan: Recent diagnosed with PET-CT showing lesions in the lung, liver, and bones consistent with metastatic disease. Brain CT showed evidence of metastatic disease as well. Pleural fluid consistent with adenocarcinoma of likely lung primary. (4) Elevated troponin: Code(s): R77.8 - Other specified abnormalities of plasma proteins Status: Acute Assessment and Plan: Likely elevated in the setting of her end-stage renal disease and CHF and not due to ischemia. She is not having any chest pain. (5) End-stage renal disease on hemodialysis: Code(s): N18.6 - End stage renal disease; Z99.2 - Dependence on renal dialysis Status: Acute Assessment and Plan: Dr. Verdin consulted and she had dialysis. Unsure if this is something she will continue to be on while she is here and then once discharged we will probably discontinue. But I will talk with the family about this more (6) Anemia of chronic disease: Code(s): D63.8 - Anemia in other chronic diseases classified elsewhere Status: Acute Assessment and Plan: Stable on review of previous labs. (7) Tobacco abuse: Code(s): Z72.0 - Tobacco use Status: Acute Assessment and Plan: Smoking cessation for 3 min
[2021-01-11 17:17] LABS: Glucose Point of Care 199 mg/dl (65-105)
--- NOTE | 2021-01-11 18:09 | PC.NURSE ---
Pt med/surg status- report given to Diana RN- pt transported to room 257 via bed accompanied by staff and - personal belongings with pt.- No c/o pain at this time
--- NOTE | 2021-01-11 18:24 | PC.NURSE ---
Transfer received from IMU room 213. Patient and family oriented to the room.
[2021-01-11 20:52] LABS: Glucose Point of Care 185 mg/dl (65-105)
[2021-01-12 06:00] VITALS: BP 135/56; PULSE 93; RESP 16; TEMP 36.4; O2SAT 94
[2021-01-12] MEDS: NICOTINE (*PBKC) 7 MG PATCH 1 PATCH TRANSDERM (08:37)
[2021-01-12 08:40] VITALS: PULSE 84
[2021-01-12] MEDS: carvediloL 6.25 MG TABLET PO (08:40)
[2021-01-12] MEDS: ASPIRIN 81 MG ENTERIC TABLET PO (08:40)
[2021-01-12] MEDS: CITALOPRAM HYDROBROMIDE 10 MG TABLET PO (08:41)
[2021-01-12 08:51] LABS: Glucose Point of Care 148 mg/dl (65-105)
--- NOTE | 2021-01-12 09:47 | WPDNEURCNPN ---
Assessment and Plan Additional Plan multiple medical comorbidities with primary carcinoma of the lung and metastatic disease to the brain obviously it is not a solitary lesion, and the diagnosis already cleared for family counseling will be necessary what are the Susan choices for the future oncology intervention. Consult date: 01/12/21 Time Seen: 08:30 HPI: Jaki Luis is a 65 year old femaleAdmitted to the hospital for the complaints of shortness of breath. Patient has ongoing history of 1. 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 Coronary artery disease 3. Congestive heart failure 4. Dementia 5. Hypertension 6. End-stage renal disease for which she is on dialysis. She has recently been admitted to the hospital on December 19, 2020 with near syncopal episode from dialysis when she was found to have moderate to large sized pleural effusion and underwent thoracentesis. She had another outpatient thoracentesis done on and the cytology of the pleural fluid documented at [facility], favoring primary lung disease and subsequent PET and CT scan on January 08, 2021 revealed pulmonary lesions, liver lesions and bone lesions with increased activity consistent with the metastatic disease. At that time brain CT scan was done which revealed new masses in the right cerebellum and right frontal lobe consistent with metastatic disease and old infarcts in the left basal ganglia and left fronto parietal region ever since that time she has had progressive shortness of breath with orthopnea and again she was found to have large recurrent right-sided pleural effusion which has been drained per Dr. Krishna subsequently she was noted to be nearly flaccid in the right upper extremity with marked weakness in the right lower extremity and she was not able to get out of the bed or stand for couple of days at the time of admission this time she was comfortable short of breath she has missed dialysis yesterday due to significant difficulties in breathing she was not complaining of any headaches a past history as mentioned above in that in addition to that consistent with bilateral carotid stenosis congestive heart failure hypertension GERD hypertrophy pulmonary hypertension is stage IV adenocarcinoma of the lung with thoracentesis as mentioned above and type 2 diabetes mellitus Review of Systems Review of Systems: All systems reviewed & are unremarkable except as noted in HPI and below PMFSH Past Medical History Medical History Anemia of chronic disease Bilateral carotid artery stenosis Chronic obstructive pulmonary disease PFTs in October 2019 demonstrated mild obstructive ventilatory defect and severe small airway disease without significant bronchodilator effect. Congestive heart failure Echocardiogram on 12/20/2020 showed mildly reduced left ventricular systolic function with an estimated EF of 45 to 50%. Coronary artery disease Two vessel CABG September 2013. 10/2013 STEMI, bare metal stent placaed to the MUÑOZ/aeft anterior descending anastomosis. OM 1 and RCA were chronically occluded. Dementia reports that the patient's at stained what sounds like hypoxic brain injury during her CABG and has had severe short-term memory loss since that time. Depression End-stage renal disease on hemodialysis Essential hypertension Gastroesophageal reflux disease History of blood transfusion Hyperlipidemia Mild pulmonary hypertension Estimated pulmonary arterial systolic pressure of 48 mmHg on echocardiogram dated 12/20/2020. Post-menopausal Stage IV adenocarcinoma of lung Thoracentesis on 12/21/2020 consistent with adenocarcinoma, likely lung primary. PET-CT on 01/08/2021 showed liver, lung, and bone lesions consistent with metastatic disease. Tobacco abuse Type 2 diabetes mellitus Surgical History Surgical History History of breast biopsy (Unknown) History of
[2021-01-12 11:14] VITALS: BMI 19.0
[2021-01-12] MEDS: INSULIN ASPART (*BKC) 100 UNITS/ML SUB-Q ×2 (12:07→16:58)
[2021-01-12 12:09] LABS: Glucose Point of Care 245 mg/dl (65-105)
--- NOTE | 2021-01-12 12:54 | PM.DS ---
DS: Admitting Diagnosis Admitting Diagnosis Admitting Diagnosis: SOB DS: Discharge Diagnosis Discharge Diagnosis (1) Acute CVA (cerebrovascular accident): Code(s): I63.9 - Cerebral infarction, unspecified Status: Acute Assessment and Plan: the patient is a 65-year-old woman with a history of recent diagnosis of stage IV adenocarcinoma presumed to be a lung primary, coronary artery disease, congestive heart failure, dementia, hypertension, end-stage renal disease on dialysis, who presented to the emergency department with complaints of shortness of breath. initial vitals showed she was afebrile, tachycardic at 105 beats per minute, respiratory rate 22, blood pressure stable at 119/79, oxygen saturation 97% on room air. Initial labs showed leukocytosis at 10,700, elevated neutrophils 84%, normocytic anemia with a hemoglobin of 11, hematocrit 35%. Normal coag panel. Creatinine 4.8, BUN 37 which is Chronic since she is on hemodialysis. Troponins were elevated and flat could be from end-stage renal disease and dialysis. BNP elevated at 7700. Chest x-ray showed large pleural effusion with underlying compressive atelectasis. the patient was admitted into the hospital for a Therapeutic thoracentesis for her large pleural effusion. during her stay she was found to have right-sided weakness and a CT brain was obtained which showed acute left frontoparietal infarct, worsened from 01/08/2021. approximately 4 brain masses, consistent with metastatic disease. Old infarct in the left basal ganglia. Carotid US showed Greater than 70% stenosis in the right internal carotid artery by sonographic criteria. Greater than 70% stenosis in the left internal carotid artery by sonographic criteria. Reversal of flow in the left vertebral artery. carotid stenosis could be the cause of her acute stroke. After much discussion with the patient's family and Kyle it was decided at the patient will go on hospice. The patients family signed papers with [facility] today. She will be discharged to [place] [facility] Hospice. (2) Recurrent pleural effusion on right: Code(s): J90 - Pleural effusion, not elsewhere classified Status: Chronic (3) Stage IV adenocarcinoma of lung: Code(s): C34.90 - Malignant neoplasm of unspecified part of unspecified bronchus or lung Status: Chronic Assessment and Plan: Recent diagnosed with PET-CT showing lesions in the lung, liver, and bones consistent with metastatic disease. Brain CT showed evidence of metastatic disease as well. Pleural fluid consistent with adenocarcinoma of likely lung primary. (4) Elevated troponin: Code(s): R77.8 - Other specified abnormalities of plasma proteins Status: Acute Assessment and Plan: Likely elevated in the setting of her end-stage renal disease and CHF and not due to ischemia. She is not having any chest pain. (5) End-stage renal disease on hemodialysis: Code(s): N18.6 - End stage renal disease; Z99.2 - Dependence on renal dialysis Status: Acute Assessment and Plan: Dr. Verdin discussed with the family. They do not want anymore dialysis treatment. (6) Anemia of chronic disease: Code(s): D63.8 - Anemia in other chronic diseases classified elsewhere Status: Chronic Assessment and Plan: Stable on review of previous labs. (7) Tobacco abuse: Code(s): Z72.0 - Tobacco use Status: Acute (8) Type 2 diabetes mellitus: Code(s): E11.9 - Type 2 diabetes mellitus without complications Status: Chronic Assessment and Plan: Hold glimepiride as her random glucose was only around 80 on arrival. Hemoglobin A1c is elevated at 7.4%. DS: Summary Hospital Course Hospital Course: See above Time Spent with Patient Time attestation: Total time spent providing and/or coordinating
--- NOTE | 2021-01-12 13:02 | PCNSR ---
On 01/12/21, the student,Colleen Madrigal, provided care and completed [facility] documentation on this patient. I have reviewed the student's documentation and agree with the findings.
[2021-01-12 14:00] VITALS: BP 96/49; PULSE 91; RESP 16; TEMP 36.2; O2SAT 96
--- NOTE | 2021-01-12 16:37 | PDONCCN ---
HPI - Date of Consult Date/Time: 01/12/21 16:37 Requesting Physician: Savannah Kinney PA-C Primary Care Provider: Annette Mauricio MD - Consult Narrative Narrative: Jaki Luis is a 65 year old female with a history of recent diagnosis of stage IV adenocarcinoma presumed to be a lung primary, coronary artery disease, congestive heart failure, dementia, hypertension, end-stage renal disease on dialysis, who presented to the emergency department with complaints of shortness of breath. Creatinine was 4.8, BUN 37, around her baseline. Chest x-ray showed large pleural effusion with underlying compressive atelectasis. the patient was admitted into the hospital for a Therapeutic thoracentesis for her large pleural effusion. During her stay she was found to have right-sided weakness and a CT brain was obtained which showed acute left frontoparietal infarct, worsened from 01/08/2021. approximately 4 brain masses, consistent with metastatic disease. Old infarct in the left basal ganglia. Carotid US showed Greater than 70% stenosis in the right internal carotid artery by sonographic criteria. Greater than 70% stenosis in the left internal carotid artery by sonographic criteria. Reversal of flow in the left vertebral artery. carotid stenosis could be the cause of her acute stroke. After much discussion with the patient's family and Kyle it was decided at the patient will go on hospice. The patients family signed papers with [facility]. She will be discharged to [place] [facility] Hospice. Oncology consulted for further support while in the hospital. Review of Systems - Review of Systems unobtainable due to mental status - Neurologic Denies weakness [facility] Medical History: Medical History (Last Reviewed 01/12/21 @ 09:51 by Vladimir Rice MD) Anemia of chronic disease Bilateral carotid artery stenosis Chronic obstructive pulmonary disease PFTs in October 2019 demonstrated mild obstructive ventilatory defect and severe small airway disease without significant bronchodilator effect. Congestive heart failure Echocardiogram on 12/20/2020 showed mildly reduced left ventricular systolic function with an estimated EF of 45 to 50%. Coronary artery disease Two vessel CABG September 2013. 10/2013 STEMI, bare metal stent placaed to the MUÑOZ/aeft anterior descending anastomosis. OM 1 and RCA were chronically occluded. Dementia reports that the patient's at stained what sounds like hypoxic brain injury during her CABG and has had severe short-term memory loss since that time. Depression End-stage renal disease on hemodialysis Essential hypertension Gastroesophageal reflux disease History of blood transfusion Hyperlipidemia Mild pulmonary hypertension Estimated pulmonary arterial systolic pressure of 48 mmHg on echocardiogram dated 12/20/2020. Post-menopausal Stage IV adenocarcinoma of lung Thoracentesis on 12/21/2020 consistent with adenocarcinoma, likely lung primary. PET-CT on 01/08/2021 showed liver, lung, and bone lesions consistent with metastatic disease. Tobacco abuse Type 2 diabetes mellitus Surgical History: Surgical History (Last Reviewed 01/12/21 @ 09:51 by Vladimir Rice MD) History of breast biopsy Onset Date: Unknown History of cardiac catheterization Onset Date: 09/2013 Moderate left ventricular enlargement with severe left ventricular hypokinesis ejection fraction of 30% with severe multivessel coronary artery disease in the left main LAD and RCA with total occlusion of the left subclavian. History of coronary artery bypass graft Onset Date: 09/2013 MUÑOZ to LAD and? History of coronary artery stent placement Onset Date: 10/2013 STEMI, bare metal stent placed to the MUÑOZ/Left anterior descending anastomosis per DR. Guerrero. OM 1 and RCA were chronically occluded. History of tubal ligation Onset Date: Unknown Status post insertion of dialysis catheter Stented coronary artery Family H
[2021-01-12 17:02] LABS: Glucose Point of Care 206 mg/dl (65-105)
== END 2021-01-12 18:30 | disposition hospice, inpatient (51) | DRG 291 ==
LOC: ANHED 09:33 → ANHIMU 10:49 → ANH2MED 01-11 18:54
PROVIDERS: Emergency Medicine; Internal Medicine Nephrology; Physician Assistant; Admitting Provider Emergency Medicine; Emergency Provider Emergency Medicine; PCP Family Medicine; Visit Provider Physician Assistant
DX: I13.2 Hypertensive heart and chronic kidney disease with heart failure and with stage 5 chronic kidney disease, or end stage renal disease (principal); N18.6 End stage renal disease; I63.9 Cerebral infarction, unspecified; J90 Pleural effusion, not elsewhere classified; C34.90 Malignant neoplasm of unspecified part of unspecified bronchus or lung; G81.91 Hemiplegia, unspecified affecting right dominant side; C79.31 Secondary malignant neoplasm of brain; I50.9 Heart failure, unspecified; D63.8 Anemia in other chronic diseases classified elsewhere; E11.22 Type 2 diabetes mellitus with diabetic chronic kidney disease; I25.2 Old myocardial infarction; K21.9 Gastro-esophageal reflux disease without esophagitis; J44.9 Chronic obstructive pulmonary disease, unspecified; I65.23 Occlusion and stenosis of bilateral carotid arteries
CPT/HCPCS: 32555; 36415; 70450; 71045; 80048; 80053; 82948; 83036; 83735; 83880; 84484; 85025; 85027; 85610; 85730; 86706; 87040; 87340; 93005; 93880; 99291; A9270; J1100; J1644; J1815; J7030